=== PATIENT | male | born 1965 | race African-American/Black ===

== ENCOUNTER 2018-01-01 12:23 | Inpatient (IN) ==
[2018-01-07 12:25] VITALS: BP 96/77
== END 2018-01-07 15:20 | disposition home health service (06) | DRG 175 ==
LOC: N.ED 12:23 → SUATTDRO 16:57 → N.EDINP 16:57 → N.CC 17:39 → N.TELES 01-04 13:10
PROVIDERS: ADMIT Hospitalist; ATTEND Hospitalist

== ENCOUNTER 2018-06-11 12:59 | Inpatient (IN) ==
[2018-06-11] MEDS ORDERED: LABETALOL 20 MG/4 ML SYRINGE IV STA (13:16)
[2018-06-11] MEDS ORDERED: ALBUTEROL/IPRATROPIUM 3 ML NEB RESP TX STA (13:16)
[2018-06-11] MEDS ORDERED: methylPREDNISolone SOD SUC 125 MG/2 ML VIAL IV STA (13:16)
[2018-06-11] MEDS ORDERED: NITROGLYCERIN 2% OINT 1 INCH/GM PACK TOP STA (13:16)
[2018-06-11] MEDS ORDERED: ASPIRIN 325 MG TABLET PO STA (13:16)
[2018-06-11] MEDS ORDERED: MORPHINE 4 MG/1 ML VIAL IV STA (13:16)
[2018-06-11] MEDS ORDERED: ONDANSETRON 4 MG/2 ML VIAL IV STA (13:16)
[2018-06-11] MEDS ORDERED: FUROSEMIDE 100 MG/10 ML VIAL IV STA (13:16)
[2018-06-11 13:52] LABS: Basophils % 0.6 % (0.0-0.8); Eosinophils % 0.2 % (0.00-10.9); Hematocrit 42.4 VOL% (42.0-52.0); Hemoglobin 13.9 GM/DL (14.0-18.0); Immature Granulocytes % 0.5 %; Immature Granulocytes Absolute 0.03 #; Lymphocytes # 1.6 10*3/uL (1.4-4.0); Lymphocytes % 25.5 % (21.2-54.2); Mean Corpuscular HGB Conc 32.8 GM/DL (32-36); Mean Corpuscular Hemoglobin 28 PG (27-34); Mean Corpuscular Volume 85.5 FL (87-102); Mean Platelet Volume 10.9 FL (9.6-12.0); Monocytes # 0.7 10*3/uL (0.11-0.8); Monocytes % 10.7 % (1.7-12.7); NRBC # 0.03 10*3/uL; Neutrophils % 62.5 % (38.7-73.9); Platelet Count 186 T/CUMM (130-400); Red Blood Count 4.96 MC/CUMM (3.8-5.5); Red Cell Distribution Width 18.4 % (9.3-17.3); White Blood Count 6.4 T/CUMM (4-12)
[2018-06-11 14:09] LABS: Albumin 2.6 G/DL (3.4-5.0); Bilirubin,Total 5.3 MG/DL (0.2-1.0); Calcium 8.5 MG/DL (8.5-10.1); INR 1.7; Osmolality,Calculated 275.8 MOS/KG (273-304); PT Patient Result 18.3 SECS; Potassium 3.2 MMOL/L (3.5-5.1); Total Protein 7.3 G/DL (6.4-8.3)
[2018-06-11] MEDS ORDERED: MAGNESIUM SULF RIDER 2 GM in PREMIX 1 EACH IV STA (14:14)
[2018-06-11] MEDS ORDERED: POTASSIUM CHLORIDE 20 MEQ TABLET PO STA (14:14)
[2018-06-11] MEDS ORDERED: MAGNESIUM SULF RIDER 2 GM in PREMIX 1 EACH IV PRN (16:55)
[2018-06-11] MEDS ORDERED: MAGNESIUM SULF RIDER 4 GM in PREMIX 1 EACH IV PRN (16:55)
[2018-06-11] MEDS ORDERED: FUROSEMIDE 20 MG/2 ML VIAL IV ONE (17:00)
[2018-06-11] MEDS: POTASSIUM CHLORIDE 20 MEQ TABLET PO PRN (20:35)
[2018-06-11] MEDS: ENOXAPARIN 40 MG/0.4 ML SYRINGE SUBCUT SCH (20:35)
[2018-06-11] MEDS ORDERED: INFLUENZA VIRUS VACCINE 0.5 ML SYRINGE IM ONE (21:00)
[2018-06-12] MEDS: MORPHINE 4 MG/1 ML VIAL IV PRN (00:26)
[2018-06-12] MEDS: POTASSIUM CHLORIDE 20 MEQ TABLET PO PRN (04:00)
[2018-06-12 05:08] LABS: Basophils % 0.2 % (0.0-0.8); Hematocrit 42.4 VOL% (42.0-52.0); Hemoglobin 13.8 GM/DL (14.0-18.0); Immature Granulocytes % 0.4 %; Immature Granulocytes Absolute 0.02 #; Lymphocytes # 1.5 10*3/uL (1.4-4.0); Lymphocytes % 27.4 % (21.2-54.2); Mean Corpuscular HGB Conc 32.5 GM/DL (32-36); Mean Corpuscular Hemoglobin 28 PG (27-34); Mean Corpuscular Volume 85.7 FL (87-102); Monocytes # 0.2 10*3/uL (0.11-0.8); Monocytes % 2.7 % (1.7-12.7); Neutrophils # 3.9 10*3/uL (1.4-7.4); Neutrophils % 69.3 % (38.7-73.9); Platelet Count 177 T/CUMM (130-400); Red Blood Count 4.95 MC/CUMM (3.8-5.5); Red Cell Distribution Width 18.9 % (9.3-17.3); White Blood Count 5.6 T/CUMM (4-12)
[2018-06-12 05:52] LABS: Calcium 8.8 MG/DL (8.5-10.1); Potassium 3.7 MMOL/L (3.5-5.1); Risk Ratio 2.52; Thyroid Stimulating Hormone 1.66 uIU/ml (0.358-3.74); VLDL CHOLESTEROL 15.2 MG/DL
[2018-06-12] MEDS: FUROSEMIDE 100 MG/10 ML VIAL IV SCH ×2 (08:34→17:18)
[2018-06-12] MEDS: PANTOPRAZOLE 40 MG TABLET PO SCH (09:46)
[2018-06-12] MEDS: LACTULOSE 20 GM/30 ML UDCUP PO PRN (17:25)
[2018-06-12] MEDS: CARVEDILOL 6.25 MG TABLET PO SCH (21:05)
[2018-06-12] MEDS: CAPTOPRIL 6.25 MG TABLET PO SCH (21:05)
[2018-06-12] MEDS: ATORVASTATIN 20 MG TABLET PO SCH (21:06)
[2018-06-12] MEDS: APIXABAN 5 MG TABLET PO SCH (21:06)
[2018-06-12] MEDS: ENOXAPARIN 40 MG/0.4 ML SYRINGE SUBCUT SCH (21:06)
[2018-06-12] MEDS: MAGNESIUM OXIDE 400 MG TABLET PO SCH (21:08)
[2018-06-13 04:49] LABS: Hematocrit 41.2 VOL% (42.0-52.0); Hemoglobin 13.3 GM/DL (14.0-18.0); Immature Granulocytes % 0.4 %; Immature Granulocytes Absolute 0.03 #; Lymphocytes # 1.1 10*3/uL (1.4-4.0); Lymphocytes % 13.5 % (21.2-54.2); Mean Corpuscular HGB Conc 32.3 GM/DL (32-36); Mean Corpuscular Hemoglobin 27 PG (27-34); Mean Corpuscular Volume 84.8 FL (87-102); Mean Platelet Volume 10.7 FL (9.6-12.0); Monocytes # 0.7 10*3/uL (0.11-0.8); Monocytes % 8.2 % (1.7-12.7); NRBC # 0.03 10*3/uL; Neutrophils # 6.1 10*3/uL (1.4-7.4); Neutrophils % 77.9 % (38.7-73.9); Platelet Count 182 T/CUMM (130-400); Red Blood Count 4.86 MC/CUMM (3.8-5.5); Red Cell Distribution Width 18.5 % (9.3-17.3); White Blood Count 7.9 T/CUMM (4-12)
[2018-06-13 05:04] LABS: Calcium 8.7 MG/DL (8.5-10.1); Osmolality,Calculated 274.2 MOS/KG (273-304)
[2018-06-13] MEDS: FUROSEMIDE 100 MG/10 ML VIAL IV SCH ×2 (08:43→15:48)
[2018-06-13] MEDS: CAPTOPRIL 6.25 MG TABLET PO SCH (09:27)
[2018-06-13] MEDS: CARVEDILOL 6.25 MG TABLET PO SCH (09:27)
[2018-06-13] MEDS: DOCUSATE SODIUM 100 MG CAPSULE PO PRN (09:28)
[2018-06-13] MEDS: CLOPIDOGREL 75 MG TABLET PO SCH (09:29)
[2018-06-13] MEDS: APIXABAN 5 MG TABLET PO SCH ×2 (09:29→21:59)
[2018-06-13] MEDS: POTASSIUM CHLORIDE 10 MEQ TABLET PO SCH (09:29)
[2018-06-13] MEDS: MAGNESIUM OXIDE 400 MG TABLET PO SCH ×2 (09:29→21:59)
[2018-06-13] MEDS: PANTOPRAZOLE 40 MG TABLET PO SCH (09:29)
[2018-06-13] MEDS: METOPROLOL SUCCINATE XL 25 MG TABLET PO SCH (11:07)
[2018-06-13] MEDS: ATORVASTATIN 20 MG TABLET PO SCH (21:59)
[2018-06-13] MEDS: ENOXAPARIN 40 MG/0.4 ML SYRINGE SUBCUT SCH (22:00)
[2018-06-14 05:27] LABS: Basophils % 0.1 % (0.0-0.8); Hematocrit 39.9 VOL% (42.0-52.0); Hemoglobin 13.4 GM/DL (14.0-18.0); Immature Granulocytes % 0.8 %; Immature Granulocytes Absolute 0.07 #; Lymphocytes # 2.2 10*3/uL (1.4-4.0); Lymphocytes % 24.6 % (21.2-54.2); Mean Corpuscular HGB Conc 33.6 GM/DL (32-36); Mean Corpuscular Hemoglobin 28 PG (27-34); Mean Corpuscular Volume 83.3 FL (87-102); Mean Platelet Volume 10.9 FL (9.6-12.0); Monocytes % 11.6 % (1.7-12.7); NRBC # 0.09 10*3/uL; Neutrophils # 5.7 10*3/uL (1.4-7.4); Neutrophils % 62.9 % (38.7-73.9); Platelet Count 182 T/CUMM (130-400); Red Blood Count 4.79 MC/CUMM (3.8-5.5); Red Cell Distribution Width 18.5 % (9.3-17.3)
[2018-06-14 06:05] LABS: Osmolality,Calculated 272.4 MOS/KG (273-304); Potassium 4.5 MMOL/L (3.5-5.1)
[2018-06-14] MEDS: PANTOPRAZOLE 40 MG TABLET PO SCH (08:22)
[2018-06-14] MEDS: POTASSIUM CHLORIDE 10 MEQ TABLET PO SCH (08:22)
[2018-06-14] MEDS: APIXABAN 5 MG TABLET PO SCH ×2 (08:22→20:59)
[2018-06-14] MEDS: MAGNESIUM OXIDE 400 MG TABLET PO SCH ×2 (08:22→20:58)
[2018-06-14] MEDS: METOPROLOL SUCCINATE XL 25 MG TABLET PO SCH (08:22)
[2018-06-14] MEDS: CLOPIDOGREL 75 MG TABLET PO SCH (08:23)
[2018-06-14] MEDS: FUROSEMIDE 100 MG/10 ML VIAL IV SCH ×2 (08:23→16:52)
[2018-06-14] MEDS: ENOXAPARIN 40 MG/0.4 ML SYRINGE SUBCUT SCH (20:59)
[2018-06-14] MEDS: ATORVASTATIN 20 MG TABLET PO SCH (20:59)
[2018-06-14] MEDS: LISINOPRIL 2.5 MG TABLET PO SCH (20:59)
[2018-06-15 05:38] LABS: Basophils % 0.1 % (0.0-0.8); Eosinophils % 0.2 % (0.00-10.9); Hemoglobin 12.8 GM/DL (14.0-18.0); Immature Granulocytes % 0.7 %; Immature Granulocytes Absolute 0.06 #; Lymphocytes # 1.8 10*3/uL (1.4-4.0); Lymphocytes % 19.6 % (21.2-54.2); Mean Corpuscular HGB Conc 33.7 GM/DL (32-36); Mean Corpuscular Hemoglobin 28 PG (27-34); Mean Corpuscular Volume 83.2 FL (87-102); Mean Platelet Volume 11.1 FL (9.6-12.0); Monocytes # 0.9 10*3/uL (0.11-0.8); Monocytes % 10.3 % (1.7-12.7); NRBC # 0.12 10*3/uL; Neutrophils # 6.3 10*3/uL (1.4-7.4); Neutrophils % 69.1 % (38.7-73.9); Platelet Count 179 T/CUMM (130-400); Red Blood Count 4.57 MC/CUMM (3.8-5.5); Red Cell Distribution Width 18.6 % (9.3-17.3); White Blood Count 9.1 T/CUMM (4-12)
[2018-06-15 06:00] LABS: Calcium 8.5 MG/DL (8.5-10.1); Potassium 3.6 MMOL/L (3.5-5.1)
[2018-06-15] MEDS: MAGNESIUM OXIDE 400 MG TABLET PO SCH ×2 (10:25→21:10)
[2018-06-15] MEDS: APIXABAN 5 MG TABLET PO SCH ×2 (10:25→21:09)
[2018-06-15] MEDS: METOPROLOL SUCCINATE XL 25 MG TABLET PO SCH ×2 (10:25→12:33)
[2018-06-15] MEDS: CLOPIDOGREL 75 MG TABLET PO SCH (10:25)
[2018-06-15] MEDS: PANTOPRAZOLE 40 MG TABLET PO SCH (10:26)
[2018-06-15] MEDS: POTASSIUM CHLORIDE 10 MEQ TABLET PO SCH (10:26)
[2018-06-15] MEDS: DOCUSATE SODIUM 100 MG CAPSULE PO PRN (10:26)
[2018-06-15] MEDS: LISINOPRIL 2.5 MG TABLET PO SCH ×2 (10:26→21:10)
[2018-06-15] MEDS: FUROSEMIDE 100 MG/10 ML VIAL IV SCH ×2 (12:28→18:28)
[2018-06-15] MEDS: ATORVASTATIN 20 MG TABLET PO SCH (21:09)
[2018-06-15] MEDS: metOLazone 5 MG TABLET PO SCH (21:10)
[2018-06-16 06:27] LABS: Basophils % 0.1 % (0.0-0.8); Eosinophils # 0.1 10*3/uL (0.0-0.87); Eosinophils % 1.4 % (0.00-10.9); Hematocrit 40.5 VOL% (42.0-52.0); Hemoglobin 13.5 GM/DL (14.0-18.0); Immature Granulocytes % 0.5 %; Immature Granulocytes Absolute 0.04 #; Lymphocytes # 1.6 10*3/uL (1.4-4.0); Lymphocytes % 22.4 % (21.2-54.2); Mean Corpuscular HGB Conc 33.3 GM/DL (32-36); Mean Corpuscular Hemoglobin 28 PG (27-34); Mean Corpuscular Volume 83.7 FL (87-102); Mean Platelet Volume 11.2 FL (9.6-12.0); Monocytes # 0.8 10*3/uL (0.11-0.8); Monocytes % 11.3 % (1.7-12.7); NRBC # 0.06 10*3/uL; Neutrophils # 4.7 10*3/uL (1.4-7.4); Neutrophils % 64.3 % (38.7-73.9); Platelet Count 181 T/CUMM (130-400); Red Blood Count 4.84 MC/CUMM (3.8-5.5); Red Cell Distribution Width 18.6 % (9.3-17.3); White Blood Count 7.3 T/CUMM (4-12)
[2018-06-16 06:45] LABS: Calcium 8.8 MG/DL (8.5-10.1); Osmolality,Calculated 273.1 MOS/KG (273-304); Potassium 3.3 MMOL/L (3.5-5.1)
[2018-06-16] MEDS: FUROSEMIDE 100 MG/10 ML VIAL IV SCH ×2 (08:17→15:36)
[2018-06-16] MEDS: MAGNESIUM OXIDE 400 MG TABLET PO SCH ×2 (10:27→21:55)
[2018-06-16] MEDS: metOLazone 5 MG TABLET PO SCH ×2 (10:28→21:55)
[2018-06-16] MEDS: POTASSIUM CHLORIDE 10 MEQ TABLET PO SCH (10:28)
[2018-06-16] MEDS: METOPROLOL SUCCINATE XL 25 MG TABLET PO SCH (10:28)
[2018-06-16] MEDS: PANTOPRAZOLE 40 MG TABLET PO SCH (10:28)
[2018-06-16] MEDS: POTASSIUM CHLORIDE 20 MEQ TABLET PO PRN ×3 (10:28→14:25)
[2018-06-16] MEDS: LISINOPRIL 2.5 MG TABLET PO SCH ×2 (10:29→21:56)
[2018-06-16] MEDS: CLOPIDOGREL 75 MG TABLET PO SCH (10:29)
[2018-06-16] MEDS: APIXABAN 5 MG TABLET PO SCH ×2 (10:29→21:55)
[2018-06-16 14:08] LABS: Calcium 8.6 MG/DL (8.5-10.1); Osmolality,Calculated 273.2 MOS/KG (273-304); Potassium 3.1 MMOL/L (3.5-5.1)
[2018-06-16] MEDS: POTASSIUM CHLORIDE 20 MEQ TABLET PO SCH ×2 (15:51→21:54)
[2018-06-16] MEDS: ATORVASTATIN 20 MG TABLET PO SCH (21:55)
[2018-06-17] MEDS: POTASSIUM CHLORIDE 20 MEQ TABLET PO SCH ×2 (00:12→03:05)
[2018-06-17 04:15] LABS: Basophils % 0.2 % (0.0-0.8); Eosinophils # 0.1 10*3/uL (0.0-0.87); Hematocrit 42.8 VOL% (42.0-52.0); Hemoglobin 14.4 GM/DL (14.0-18.0); Immature Granulocytes % 0.5 %; Immature Granulocytes Absolute 0.03 #; Lymphocytes # 1.3 10*3/uL (1.4-4.0); Lymphocytes % 20.1 % (21.2-54.2); Mean Corpuscular HGB Conc 33.6 GM/DL (32-36); Mean Corpuscular Hemoglobin 28 PG (27-34); Mean Corpuscular Volume 83.6 FL (87-102); Mean Platelet Volume 10.8 FL (9.6-12.0); Monocytes # 0.7 10*3/uL (0.11-0.8); Monocytes % 10.2 % (1.7-12.7); NRBC # 0.03 10*3/uL; Neutrophils # 4.4 10*3/uL (1.4-7.4); Platelet Count 187 T/CUMM (130-400); Red Blood Count 5.12 MC/CUMM (3.8-5.5); White Blood Count 6.6 T/CUMM (4-12)
[2018-06-17 04:34] LABS: Calcium 8.5 MG/DL (8.5-10.1); Osmolality,Calculated 269.4 MOS/KG (273-304); Potassium 3.8 MMOL/L (3.5-5.1)
[2018-06-17] MEDS: LISINOPRIL 2.5 MG TABLET PO SCH ×2 (09:58→21:53)
[2018-06-17] MEDS: APIXABAN 5 MG TABLET PO SCH ×3 (10:00→21:53)
[2018-06-17] MEDS: metOLazone 5 MG TABLET PO SCH ×3 (10:00→21:53)
[2018-06-17] MEDS: PANTOPRAZOLE 40 MG TABLET PO SCH ×2 (10:00→10:20)
[2018-06-17] MEDS: CLOPIDOGREL 75 MG TABLET PO SCH ×2 (10:00→10:20)
[2018-06-17] MEDS: MAGNESIUM OXIDE 400 MG TABLET PO SCH ×3 (10:00→21:53)
[2018-06-17] MEDS: METOPROLOL SUCCINATE XL 25 MG TABLET PO SCH ×2 (10:00→10:20)
[2018-06-17] MEDS: FUROSEMIDE 100 MG/10 ML VIAL IV SCH ×2 (10:01→18:32)
[2018-06-17] MEDS: ATORVASTATIN 20 MG TABLET PO SCH (21:53)
[2018-06-18 05:21] LABS: Basophils % 0.3 % (0.0-0.8); Eosinophils # 0.1 10*3/uL (0.0-0.87); Eosinophils % 1.4 % (0.00-10.9); Hematocrit 42.9 VOL% (42.0-52.0); Hemoglobin 14.1 GM/DL (14.0-18.0); Immature Granulocytes % 0.5 %; Immature Granulocytes Absolute 0.03 #; Lymphocytes # 1.3 10*3/uL (1.4-4.0); Lymphocytes % 20.4 % (21.2-54.2); Mean Corpuscular HGB Conc 32.9 GM/DL (32-36); Mean Corpuscular Hemoglobin 28 PG (27-34); Mean Platelet Volume 10.9 FL (9.6-12.0); Monocytes # 0.8 10*3/uL (0.11-0.8); Monocytes % 12.7 % (1.7-12.7); NRBC # 0.02 10*3/uL; Neutrophils # 4.2 10*3/uL (1.4-7.4); Neutrophils % 64.7 % (38.7-73.9); Platelet Count 189 T/CUMM (130-400); Red Blood Count 5.11 MC/CUMM (3.8-5.5); Red Cell Distribution Width 19.1 % (9.3-17.3); White Blood Count 6.5 T/CUMM (4-12)
[2018-06-18 05:42] LABS: Calcium 8.6 MG/DL (8.5-10.1); Osmolality,Calculated 265.5 MOS/KG (273-304); Potassium 3.3 MMOL/L (3.5-5.1)
[2018-06-18] MEDS: APIXABAN 5 MG TABLET PO SCH ×2 (07:24→09:22)
[2018-06-18] MEDS: metOLazone 5 MG TABLET PO SCH ×2 (07:24→09:22)
[2018-06-18] MEDS: MAGNESIUM OXIDE 400 MG TABLET PO SCH ×2 (07:24→09:22)
[2018-06-18] MEDS ORDERED: POTASSIUM CHLORIDE RIDER 10 MEQ in PREMIX 1 EACH IV PRN (08:12)
[2018-06-18] MEDS: FUROSEMIDE 100 MG/10 ML VIAL IV SCH ×2 (09:19→16:56)
[2018-06-18] MEDS: LISINOPRIL 2.5 MG TABLET PO SCH (09:22)
[2018-06-18] MEDS: PANTOPRAZOLE 40 MG TABLET PO SCH (09:22)
[2018-06-18] MEDS: METOPROLOL SUCCINATE XL 25 MG TABLET PO SCH (09:22)
[2018-06-18] MEDS: CLOPIDOGREL 75 MG TABLET PO SCH (09:22)
[2018-06-18] MEDS: LACTULOSE 20 GM/30 ML UDCUP PO PRN (12:56)
[2018-06-18] MEDS: MORPHINE 4 MG/1 ML VIAL IV PRN (12:56)
[2018-06-18] MEDS: guaiFENesin 200 MG/10 ML UDCUP PO PRN (12:57)
[2018-06-19] MEDS: LISINOPRIL 2.5 MG TABLET PO SCH ×3 (01:55→12:33)
[2018-06-19] MEDS: MAGNESIUM OXIDE 400 MG TABLET PO SCH ×3 (01:55→12:33)
[2018-06-19] MEDS: ATORVASTATIN 20 MG TABLET PO SCH (01:55)
[2018-06-19] MEDS: APIXABAN 5 MG TABLET PO SCH ×3 (01:55→12:29)
[2018-06-19 06:47] LABS: Basophils % 0.6 % (0.0-0.8); Eosinophils # 0.1 10*3/uL (0.0-0.87); Eosinophils % 1.6 % (0.00-10.9); Hemoglobin 14.2 GM/DL (14.0-18.0); Immature Granulocytes % 0.4 %; Immature Granulocytes Absolute 0.03 #; Lymphocytes # 1.3 10*3/uL (1.4-4.0); Lymphocytes % 19.1 % (21.2-54.2); Mean Corpuscular HGB Conc 33.8 GM/DL (32-36); Mean Corpuscular Hemoglobin 28 PG (27-34); Mean Corpuscular Volume 83.5 FL (87-102); Monocytes # 0.9 10*3/uL (0.11-0.8); Monocytes % 13.5 % (1.7-12.7); Neutrophils # 4.4 10*3/uL (1.4-7.4); Neutrophils % 64.8 % (38.7-73.9); Platelet Count 209 T/CUMM (130-400); Red Blood Count 5.03 MC/CUMM (3.8-5.5); Red Cell Distribution Width 18.6 % (9.3-17.3); White Blood Count 6.8 T/CUMM (4-12)
[2018-06-19 07:49] LABS: Albumin 2.3 G/DL (3.4-5.0); Bilirubin,Total 4.5 MG/DL (0.2-1.0); Calcium 8.4 MG/DL (8.5-10.1); Osmolality,Calculated 266.7 MOS/KG (273-304); Potassium 3.1 MMOL/L (3.5-5.1); Total Protein 6.9 G/DL (6.4-8.3)
[2018-06-19] MEDS: FUROSEMIDE 100 MG/10 ML VIAL IV SCH (10:19)
[2018-06-19] MEDS: METOPROLOL SUCCINATE XL 25 MG TABLET PO SCH ×2 (10:23→12:29)
[2018-06-19] MEDS: CLOPIDOGREL 75 MG TABLET PO SCH ×2 (10:23→12:32)
[2018-06-19] MEDS: PANTOPRAZOLE 40 MG TABLET PO SCH (10:23)
[2018-06-19] MEDS: POTASSIUM CHLORIDE 20 MEQ TABLET PO PRN ×2 (12:27→14:29)
[2018-06-19] MEDS: guaiFENesin 200 MG/10 ML UDCUP PO PRN (12:29)
[2018-06-20] MEDS: ATORVASTATIN 20 MG TABLET PO SCH ×2 (02:44→22:08)
[2018-06-20] MEDS: MAGNESIUM OXIDE 400 MG TABLET PO SCH ×3 (02:44→22:08)
[2018-06-20] MEDS: APIXABAN 5 MG TABLET PO SCH ×3 (02:44→22:09)
[2018-06-20] MEDS: LISINOPRIL 2.5 MG TABLET PO SCH ×3 (02:45→22:09)
[2018-06-20 04:12] LABS: Basophils # 0.1 10*3/uL (0.0-0.2); Basophils % 0.6 % (0.0-0.8); Eosinophils # 0.1 10*3/uL (0.0-0.87); Eosinophils % 1.3 % (0.00-10.9); Hematocrit 41.4 VOL% (42.0-52.0); Hemoglobin 13.9 GM/DL (14.0-18.0); Immature Granulocytes % 0.4 %; Immature Granulocytes Absolute 0.04 #; Lymphocytes # 1.8 10*3/uL (1.4-4.0); Lymphocytes % 20.1 % (21.2-54.2); Mean Corpuscular HGB Conc 33.6 GM/DL (32-36); Mean Corpuscular Hemoglobin 28 PG (27-34); Mean Platelet Volume 10.4 FL (9.6-12.0); Monocytes # 1.3 10*3/uL (0.11-0.8); Neutrophils # 5.8 10*3/uL (1.4-7.4); Neutrophils % 63.6 % (38.7-73.9); Platelet Count 200 T/CUMM (130-400); Red Blood Count 4.93 MC/CUMM (3.8-5.5); Red Cell Distribution Width 18.6 % (9.3-17.3); White Blood Count 9.1 T/CUMM (4-12)
[2018-06-20 08:16] LABS: Calcium 8.7 MG/DL (8.5-10.1); Osmolality,Calculated 265.5 MOS/KG (273-304); Potassium 3.2 MMOL/L (3.5-5.1)
[2018-06-20] MEDS: METOPROLOL SUCCINATE XL 25 MG TABLET PO SCH (09:12)
[2018-06-20] MEDS: PANTOPRAZOLE 40 MG TABLET PO SCH (09:14)
[2018-06-20] MEDS: CLOPIDOGREL 75 MG TABLET PO SCH (09:14)
[2018-06-20] MEDS ORDERED: MAGNESIUM SULF RIDER 4 GM in PREMIX 1 EACH IV PRN (11:27)
[2018-06-20] MEDS ORDERED: MAGNESIUM SULF RIDER 2 GM in PREMIX 1 EACH IV PRN (11:27)
[2018-06-20] MEDS ORDERED: POTASSIUM CHLORIDE 20 MEQ TABLET PO ONE (11:27)
[2018-06-20] MEDS: POTASSIUM CHLORIDE 20 MEQ TABLET PO PRN (22:08)
[2018-06-21 04:34] LABS: Basophils # 0.1 10*3/uL (0.0-0.2); Basophils % 0.6 % (0.0-0.8); Eosinophils # 0.1 10*3/uL (0.0-0.87); Eosinophils % 1.1 % (0.00-10.9); Hematocrit 40.3 VOL% (42.0-52.0); Hemoglobin 13.2 GM/DL (14.0-18.0); Immature Granulocytes % 0.6 %; Immature Granulocytes Absolute 0.05 #; Lymphocytes # 1.9 10*3/uL (1.4-4.0); Lymphocytes % 23.8 % (21.2-54.2); Mean Corpuscular HGB Conc 32.8 GM/DL (32-36); Mean Corpuscular Hemoglobin 28 PG (27-34); Mean Corpuscular Volume 85.2 FL (87-102); Mean Platelet Volume 10.5 FL (9.6-12.0); Monocytes # 1.1 10*3/uL (0.11-0.8); Monocytes % 13.3 % (1.7-12.7); Neutrophils # 4.9 10*3/uL (1.4-7.4); Neutrophils % 60.6 % (38.7-73.9); Platelet Count 193 T/CUMM (130-400); Red Blood Count 4.73 MC/CUMM (3.8-5.5); Red Cell Distribution Width 18.4 % (9.3-17.3)
[2018-06-21 04:38] LABS: Osmolality,Calculated 270.4 MOS/KG (273-304); Potassium 3.3 MMOL/L (3.5-5.1)
[2018-06-21] MEDS: CLOPIDOGREL 75 MG TABLET PO SCH (13:03)
[2018-06-21] MEDS: PANTOPRAZOLE 40 MG TABLET PO SCH (13:03)
[2018-06-21] MEDS: LISINOPRIL 2.5 MG TABLET PO SCH ×2 (13:03→20:52)
[2018-06-21] MEDS: MAGNESIUM OXIDE 400 MG TABLET PO SCH ×2 (13:03→20:52)
[2018-06-21] MEDS: METOPROLOL SUCCINATE XL 25 MG TABLET PO SCH (13:04)
[2018-06-21] MEDS: APIXABAN 5 MG TABLET PO SCH ×2 (13:04→20:52)
[2018-06-21] MEDS: POTASSIUM CHLORIDE 20 MEQ TABLET PO PRN (13:04)
[2018-06-21] MEDS ORDERED: POTASSIUM CHLORIDE 20 MEQ TABLET PO ONE (17:11)
[2018-06-21] MEDS: ATORVASTATIN 20 MG TABLET PO SCH (20:52)
[2018-06-22 04:42] LABS: Calcium 8.8 MG/DL (8.5-10.1); Osmolality,Calculated 270.2 MOS/KG (273-304); Potassium 4.4 MMOL/L (3.5-5.1)
[2018-06-22] MEDS: METOPROLOL SUCCINATE XL 25 MG TABLET PO SCH (09:07)
[2018-06-22] MEDS: LISINOPRIL 2.5 MG TABLET PO SCH ×2 (09:07→20:59)
[2018-06-22] MEDS: PANTOPRAZOLE 40 MG TABLET PO SCH (09:07)
[2018-06-22] MEDS: APIXABAN 5 MG TABLET PO SCH ×2 (09:07→20:59)
[2018-06-22] MEDS: CLOPIDOGREL 75 MG TABLET PO SCH (09:07)
[2018-06-22] MEDS: MAGNESIUM OXIDE 400 MG TABLET PO SCH ×2 (09:08→20:59)
[2018-06-22] MEDS ORDERED: FUROSEMIDE 20 MG/2 ML VIAL IV ONE (10:24)
[2018-06-22] MEDS ORDERED: TUBERCULIN SKIN TEST 0.1 ML SYRINGE INTRADERM ONE (12:25)
[2018-06-22] MEDS: ATORVASTATIN 20 MG TABLET PO SCH (21:00)
[2018-06-23] MEDS: APIXABAN 5 MG TABLET PO SCH ×2 (08:16→21:14)
[2018-06-23] MEDS: METOPROLOL SUCCINATE XL 25 MG TABLET PO SCH (08:17)
[2018-06-23] MEDS: LISINOPRIL 2.5 MG TABLET PO SCH ×2 (08:17→21:15)
[2018-06-23] MEDS: CLOPIDOGREL 75 MG TABLET PO SCH (08:17)
[2018-06-23] MEDS: PANTOPRAZOLE 40 MG TABLET PO SCH (08:17)
[2018-06-23] MEDS: MAGNESIUM OXIDE 400 MG TABLET PO SCH ×2 (08:17→21:14)
[2018-06-23] MEDS: ATORVASTATIN 20 MG TABLET PO SCH (21:14)
[2018-06-24] MEDS ORDERED: diphenhydrAMINE CAP 25 MG CAPSULE PO ONE (00:01)
[2018-06-24] MEDS: MAGNESIUM OXIDE 400 MG TABLET PO SCH (08:42)
[2018-06-24] MEDS: LISINOPRIL 2.5 MG TABLET PO SCH (08:42)
[2018-06-24] MEDS: CLOPIDOGREL 75 MG TABLET PO SCH (08:43)
[2018-06-24] MEDS: PANTOPRAZOLE 40 MG TABLET PO SCH (08:43)
[2018-06-24] MEDS: APIXABAN 5 MG TABLET PO SCH (08:43)
[2018-06-24] MEDS: METOPROLOL SUCCINATE XL 25 MG TABLET PO SCH (08:43)
[2018-06-24 12:57] VITALS: BP 95/65
== END 2018-06-24 14:32 | DRG 292 ==
LOC: N.ED 12:59 → SUATTDRO 16:06 → N.EDINP 16:06 → N.TELES 18:32
PROVIDERS: ADMIT Internal Medicine; ATTEND Internal Medicine

== ENCOUNTER 2018-07-08 07:15 | Inpatient (IN) ==
[2018-07-08 09:25] LABS: Basophils % 0.5 % (0.0-0.8); Eosinophils % 0.3 % (0.00-10.9); Hematocrit 41.5 VOL% (42.0-52.0); Immature Granulocytes % 0.5 %; Immature Granulocytes Absolute 0.03 #; Lymphocytes # 1.8 10*3/uL (1.4-4.0); Lymphocytes % 31.4 % (21.2-54.2); Mean Corpuscular HGB Conc 31.3 GM/DL (32-36); Mean Corpuscular Hemoglobin 28 PG (27-34); Mean Corpuscular Volume 89.2 FL (87-102); Mean Platelet Volume 10.1 FL (9.6-12.0); Monocytes # 0.7 10*3/uL (0.11-0.8); Monocytes % 11.4 % (1.7-12.7); NRBC # 0.03 10*3/uL; Neutrophils # 3.3 10*3/uL (1.4-7.4); Neutrophils % 55.9 % (38.7-73.9); Platelet Count 260 T/CUMM (130-400); Red Blood Count 4.65 MC/CUMM (3.8-5.5); Red Cell Distribution Width 19.3 % (9.3-17.3); White Blood Count 5.9 T/CUMM (4-12)
[2018-07-08 09:52] LABS: Calcium 9.1 MG/DL (8.5-10.1); Osmolality,Calculated 273.8 MOS/KG (273-304)
[2018-07-08] MEDS ORDERED: FUROSEMIDE 40 MG/4 ML VIAL IV STA (11:56)
[2018-07-08] MEDS ORDERED: ACETAMINOPHEN 325 MG TABLET PO PRN (13:10)
[2018-07-08] MEDS ORDERED: ONDANSETRON 4 MG/2 ML VIAL IV PRN (13:10)
[2018-07-09 06:45] LABS: Basophils % 0.7 % (0.0-0.8); Eosinophils % 0.7 % (0.00-10.9); Hematocrit 41.4 VOL% (42.0-52.0); Immature Granulocytes % 0.4 %; Immature Granulocytes Absolute 0.02 #; Lymphocytes # 2.4 10*3/uL (1.4-4.0); Lymphocytes % 43.1 % (21.2-54.2); Mean Corpuscular HGB Conc 31.4 GM/DL (32-36); Mean Corpuscular Hemoglobin 28 PG (27-34); Mean Corpuscular Volume 88.7 FL (87-102); Mean Platelet Volume 10.1 FL (9.6-12.0); Monocytes # 0.7 10*3/uL (0.11-0.8); Monocytes % 12.2 % (1.7-12.7); Neutrophils # 2.4 10*3/uL (1.4-7.4); Neutrophils % 42.9 % (38.7-73.9); Platelet Count 251 T/CUMM (130-400); Red Blood Count 4.67 MC/CUMM (3.8-5.5); Red Cell Distribution Width 19.5 % (9.3-17.3); White Blood Count 5.5 T/CUMM (4-12)
[2018-07-09 07:08] LABS: Calcium 8.9 MG/DL (8.5-10.1); Osmolality,Calculated 274.7 MOS/KG (273-304); Potassium 4.1 MMOL/L (3.5-5.1)
[2018-07-09] MEDS: FUROSEMIDE 40 MG/4 ML VIAL IV SCH (10:20)
[2018-07-09] MEDS: PANTOPRAZOLE 40 MG TABLET PO SCH (10:20)
[2018-07-10 06:33] LABS: Basophils % 0.6 % (0.0-0.8); Eosinophils % 0.6 % (0.00-10.9); Hematocrit 41.7 VOL% (42.0-52.0); Hemoglobin 13.3 GM/DL (14.0-18.0); Immature Granulocytes % 0.4 %; Immature Granulocytes Absolute 0.02 #; Lymphocytes # 1.6 10*3/uL (1.4-4.0); Lymphocytes % 32.2 % (21.2-54.2); Mean Corpuscular HGB Conc 31.9 GM/DL (32-36); Mean Corpuscular Hemoglobin 28 PG (27-34); Mean Corpuscular Volume 87.6 FL (87-102); Mean Platelet Volume 10.3 FL (9.6-12.0); Monocytes # 0.6 10*3/uL (0.11-0.8); Neutrophils # 2.7 10*3/uL (1.4-7.4); Neutrophils % 54.2 % (38.7-73.9); Platelet Count 248 T/CUMM (130-400); Red Blood Count 4.76 MC/CUMM (3.8-5.5); Red Cell Distribution Width 19.6 % (9.3-17.3)
[2018-07-10 06:44] LABS: Calcium 8.7 MG/DL (8.5-10.1); Osmolality,Calculated 274.8 MOS/KG (273-304)
[2018-07-10] MEDS: FUROSEMIDE 40 MG/4 ML VIAL IV SCH ×2 (07:38→08:24)
[2018-07-10] MEDS: PANTOPRAZOLE 40 MG TABLET PO SCH ×2 (07:39→08:24)
[2018-07-10 10:07] VITALS: BP 125/80
== END 2018-07-10 14:42 | disposition home or self-care (01) | DRG 292 ==
LOC: EDBD → EDUNIT# → N.ED 07:15 → N.EDINP 13:09 → N.5E 15:27
PROVIDERS: ADMIT Internal Medicine; ATTEND Internal Medicine

== ENCOUNTER 2018-07-22 10:50 | Inpatient (IN) ==
[2018-07-22] MEDS ORDERED: ONDANSETRON 4 MG/2 ML VIAL IV STA ×2 (11:29→14:21)
[2018-07-22] MEDS ORDERED: HYDROmorphone 2 MG/1 ML VIAL IV STA ×2 (11:29→14:20)
[2018-07-22] MEDS ORDERED: PANTOPRAZOLE 40 MG VIAL IV STA (11:29)
[2018-07-22] MEDS ORDERED: SODIUM CHLORIDE 0.9% 1,000 ML IV STA (11:29)
[2018-07-22 12:21] LABS: Basophils % 0.4 % (0.0-0.8); Eosinophils % 0.9 % (0.00-10.9); Hematocrit 40.8 VOL% (42.0-52.0); Hemoglobin 12.8 GM/DL (14.0-18.0); Immature Granulocytes % 0.4 %; Immature Granulocytes Absolute 0.02 #; Lymphocytes # 1.7 10*3/uL (1.4-4.0); Lymphocytes % 36.3 % (21.2-54.2); Mean Corpuscular HGB Conc 31.4 GM/DL (32-36); Mean Corpuscular Hemoglobin 28 PG (27-34); Mean Corpuscular Volume 89.1 FL (87-102); Mean Platelet Volume 10.1 FL (9.6-12.0); Monocytes # 0.5 10*3/uL (0.11-0.8); Monocytes % 11.7 % (1.7-12.7); NRBC # 0.03 10*3/uL; Neutrophils # 2.3 10*3/uL (1.4-7.4); Neutrophils % 50.3 % (38.7-73.9); Platelet Count 145 T/CUMM (130-400); Red Blood Count 4.58 MC/CUMM (3.8-5.5); Red Cell Distribution Width 18.2 % (9.3-17.3); White Blood Count 4.6 T/CUMM (4-12)
[2018-07-22 12:48] LABS: Alanine Aminotransferase 19 U/L (16-61); Albumin 2.7 G/DL (3.4-5.0); Alkaline Phosphatase 120 U/L (45-117); Amylase 65 U/L (25-115); Aspartate Amino Transferase 20 U/L (0-37); Blood Urea Nitrogen 18 MG/DL (7-18); Glucose 99 MG/DL (74-106); Lipase < 50.0 U/L (73-393); Osmolality,Calculated 278.5 MOS/KG (273-304); Potassium 3.4 MMOL/L (3.5-5.1); Sodium 139 MMOL/L (136-145); Total Protein 6.2 G/DL (6.4-8.3)
[2018-07-22] MEDS ORDERED: PIPERACILLIN/TAZOBACTAM 3,375 MG in SODIUM CHLORIDE 0.9% 100 ML IV STA (14:18)
[2018-07-22] MEDS ORDERED: ONDANSETRON 4 MG/2 ML VIAL IV PRN (15:41)
[2018-07-22] MEDS ORDERED: DOCUSATE SODIUM 100 MG CAPSULE PO PRN (15:44)
[2018-07-22] MEDS: HYDROmorphone 2 MG/1 ML VIAL IV PRN (17:23)
[2018-07-22] MEDS: FUROSEMIDE 20 MG TABLET PO SCH (17:24)
[2018-07-22 17:54] LABS: Apearance,Urine CLEAR (Clear); Bacteria,Urine Occasional /HPF (Few); Bilirubin,Urine Negative (Negative); Blood, Urine Small mg/dL (Negative); Glucose,Urine (UA) Negative (Negative); Ketones,Urine Negative (Negative); Mucus,Urine Occasional /LPF (Occasional); Nitrite,Urine Negative (Negative); Protein,Urine 100 MG/DL; RBC,Urine 13 /HPF (0-4); Urine Specific Gravity > 1.060 (1.001-1.035)
[2018-07-22 17:55] LABS: Urine Color Yellow (Yellow)
[2018-07-22] MEDS: POTASSIUM CHLORIDE 20 MEQ TABLET PO SCH (20:58)
[2018-07-22] MEDS: ATORVASTATIN 20 MG TABLET PO SCH (20:58)
[2018-07-22] MEDS: CAPTOPRIL 6.25 MG TABLET PO SCH (20:58)
[2018-07-22] MEDS: MAGNESIUM OXIDE 400 MG TABLET PO SCH (20:58)
[2018-07-22] MEDS ORDERED: APIXABAN 5 MG TABLET PO SCH (21:00)
[2018-07-23] MEDS: PIPERACILLIN/TAZOBACTAM 3,375 MG in SODIUM CHLORIDE 0.9% 100 ML IV SCH ×3 (02:40→17:44)
[2018-07-23] MEDS: HYDROmorphone 2 MG/1 ML VIAL IV PRN ×5 (05:35→17:45)
[2018-07-23 06:57] LABS: Basophils % 0.4 % (0.0-0.8); Eosinophils # 0.1 10*3/uL (0.0-0.87); Eosinophils % 1.7 % (0.00-10.9); Hematocrit 42.5 VOL% (42.0-52.0); Hemoglobin 13.2 GM/DL (14.0-18.0); Immature Granulocytes % 0.2 %; Immature Granulocytes Absolute 0.01 #; Lymphocytes # 1.4 10*3/uL (1.4-4.0); Lymphocytes % 25.9 % (21.2-54.2); Mean Corpuscular HGB Conc 31.1 GM/DL (32-36); Mean Corpuscular Hemoglobin 28 PG (27-34); Mean Corpuscular Volume 89.9 FL (87-102); Mean Platelet Volume 10.6 FL (9.6-12.0); Monocytes # 0.5 10*3/uL (0.11-0.8); Monocytes % 8.8 % (1.7-12.7); NRBC # 0.02 10*3/uL; Neutrophils # 3.4 10*3/uL (1.4-7.4); Platelet Count 168 T/CUMM (130-400); Red Blood Count 4.73 MC/CUMM (3.8-5.5); Red Cell Distribution Width 18.8 % (9.3-17.3); White Blood Count 5.5 T/CUMM (4-12)
[2018-07-23 07:27] LABS: Albumin 2.8 G/DL (3.4-5.0); Bilirubin,Total 3.6 MG/DL (0.2-1.0); Calcium 8.6 MG/DL (8.5-10.1); Osmolality,Calculated 278.5 MOS/KG (273-304); Potassium 3.7 MMOL/L (3.5-5.1); Total Protein 6.8 G/DL (6.4-8.3)
[2018-07-23] MEDS ORDERED: CLOPIDOGREL 75 MG TABLET PO SCH (09:00)
[2018-07-23] MEDS: CAPTOPRIL 6.25 MG TABLET PO SCH ×2 (09:27→21:03)
[2018-07-23] MEDS: METOPROLOL SUCCINATE XL 25 MG TABLET PO SCH (09:28)
[2018-07-23] MEDS: POTASSIUM CHLORIDE 20 MEQ TABLET PO SCH ×2 (09:28→21:03)
[2018-07-23] MEDS: PANTOPRAZOLE 40 MG TABLET PO SCH (09:28)
[2018-07-23] MEDS: FUROSEMIDE 20 MG TABLET PO SCH (09:28)
[2018-07-23] MEDS: LORATADINE 10 MG TABLET PO SCH (09:28)
[2018-07-23] MEDS: MAGNESIUM OXIDE 400 MG TABLET PO SCH ×2 (09:28→21:03)
[2018-07-23] MEDS ORDERED: FUROSEMIDE 20 MG TABLET PO SCH (10:52)
[2018-07-23] MEDS: ENOXAPARIN 100 MG/ML SYRINGE SUBCUT SCH (13:02)
[2018-07-23] MEDS: ATORVASTATIN 20 MG TABLET PO SCH (21:03)
[2018-07-24] MEDS: PIPERACILLIN/TAZOBACTAM 3,375 MG in SODIUM CHLORIDE 0.9% 100 ML IV SCH ×3 (02:17→18:17)
[2018-07-24 05:37] LABS: Basophils % 0.2 % (0.0-0.8); Eosinophils # 0.2 10*3/uL (0.0-0.87); Eosinophils % 3.3 % (0.00-10.9); Hematocrit 39.6 VOL% (42.0-52.0); Hemoglobin 12.3 GM/DL (14.0-18.0); Immature Granulocytes % 0.5 %; Immature Granulocytes Absolute 0.03 #; Lymphocytes # 0.7 10*3/uL (1.4-4.0); Lymphocytes % 11.4 % (21.2-54.2); Mean Corpuscular HGB Conc 31.1 GM/DL (32-36); Mean Corpuscular Hemoglobin 28 PG (27-34); Mean Platelet Volume 10.5 FL (9.6-12.0); Monocytes # 0.9 10*3/uL (0.11-0.8); Monocytes % 14.6 % (1.7-12.7); NRBC # 0.03 10*3/uL; Neutrophils # 4.1 10*3/uL (1.4-7.4); Platelet Count 159 T/CUMM (130-400); Red Blood Count 4.35 MC/CUMM (3.8-5.5); Red Cell Distribution Width 18.7 % (9.3-17.3); White Blood Count 5.8 T/CUMM (4-12)
[2018-07-24 05:52] LABS: Calcium 8.8 MG/DL (8.5-10.1); Osmolality,Calculated 274.8 MOS/KG (273-304); Potassium 4.8 MMOL/L (3.5-5.1)
[2018-07-24 06:55] LABS: Albumin 2.6 G/DL (3.4-5.0); Bilirubin,Total 3.9 MG/DL (0.2-1.0); Calcium 8.8 MG/DL (8.5-10.1); Osmolality,Calculated 273.8 MOS/KG (273-304); Potassium 4.9 MMOL/L (3.5-5.1); Total Protein 6.4 G/DL (6.4-8.3)
[2018-07-24] MEDS ORDERED: DEXTROSE 5% NACL 0.45% 1,000 ML IV SCH (08:00)
[2018-07-24] MEDS: MAGNESIUM OXIDE 400 MG TABLET PO SCH ×2 (10:17→21:18)
[2018-07-24] MEDS: METOPROLOL SUCCINATE XL 25 MG TABLET PO SCH (10:17)
[2018-07-24] MEDS: PANTOPRAZOLE 40 MG TABLET PO SCH (10:17)
[2018-07-24] MEDS: POTASSIUM CHLORIDE 20 MEQ TABLET PO SCH ×2 (10:17→21:18)
[2018-07-24] MEDS: HYDROmorphone 2 MG/1 ML VIAL IV PRN ×3 (10:18→16:24)
[2018-07-24] MEDS: LORATADINE 10 MG TABLET PO SCH (10:21)
[2018-07-24] MEDS: ENOXAPARIN 100 MG/ML SYRINGE SUBCUT SCH ×2 (10:22→21:23)
[2018-07-24] MEDS: ATORVASTATIN 20 MG TABLET PO SCH (21:24)
[2018-07-25] MEDS: PIPERACILLIN/TAZOBACTAM 3,375 MG in SODIUM CHLORIDE 0.9% 100 ML IV SCH ×2 (03:00→12:32)
[2018-07-25] MEDS: PANTOPRAZOLE 40 MG TABLET PO SCH (10:44)
[2018-07-25] MEDS: MAGNESIUM OXIDE 400 MG TABLET PO SCH (10:44)
[2018-07-25] MEDS: POTASSIUM CHLORIDE 20 MEQ TABLET PO SCH (10:44)
[2018-07-25] MEDS: METOPROLOL SUCCINATE XL 25 MG TABLET PO SCH (10:44)
[2018-07-25] MEDS: LORATADINE 10 MG TABLET PO SCH (10:44)
[2018-07-25] MEDS: ENOXAPARIN 100 MG/ML SYRINGE SUBCUT SCH (10:53)
[2018-07-25] MEDS ORDERED: diphenhydrAMINE 50 MG/1 ML VIAL IV PRN (11:23)
[2018-07-25] MEDS ORDERED: MORPHINE 4 MG/1 ML VIAL IV PRN (11:23)
[2018-07-25 11:30] VITALS: BP 102/80
== END 2018-07-25 16:25 | disposition home or self-care (01) | DRG 445 ==
LOC: EDUNIT# → EDBD → N.ED 10:50 → SUATTDRO 15:20 → N.EDINP 15:20 → N.2E 16:06
PROVIDERS: ADMIT Internal Medicine; ATTEND Internal Medicine Geriatric Medicine

== ENCOUNTER 2018-08-19 10:18 | Inpatient (IN) ==
[2018-08-19] MEDS ORDERED: FUROSEMIDE 100 MG/10 ML VIAL IV STA (10:44)
[2018-08-19 11:17] LABS: Basophils % 0.7 % (0.0-0.8); Eosinophils # 0.1 10*3/uL (0.0-0.87); Eosinophils % 0.9 % (0.00-10.9); Hematocrit 43.9 VOL% (42.0-52.0); Hemoglobin 14.1 GM/DL (14.0-18.0); Immature Granulocytes % 0.5 %; Immature Granulocytes Absolute 0.03 #; Lymphocytes # 1.5 10*3/uL (1.4-4.0); Lymphocytes % 26.6 % (21.2-54.2); Mean Corpuscular HGB Conc 32.1 GM/DL (32-36); Mean Corpuscular Hemoglobin 29 PG (27-34); Mean Corpuscular Volume 89.2 FL (87-102); Mean Platelet Volume 10.3 FL (9.6-12.0); Monocytes # 0.5 10*3/uL (0.11-0.8); Monocytes % 8.2 % (1.7-12.7); Neutrophils # 3.6 10*3/uL (1.4-7.4); Neutrophils % 63.1 % (38.7-73.9); Platelet Count 194 T/CUMM (130-400); Red Blood Count 4.92 MC/CUMM (3.8-5.5); Red Cell Distribution Width 18.2 % (9.3-17.3); White Blood Count 5.8 T/CUMM (4-12)
[2018-08-19 11:25] LABS: INR 1.4; PT Patient Result 15.2 SECS; Partial Thromboplastin Time 27.9 SECS (0-40)
[2018-08-19 11:44] LABS: Albumin 2.7 G/DL (3.4-5.0); Bilirubin,Total 3.6 MG/DL (0.2-1.0); Calcium 8.6 MG/DL (8.5-10.1); Osmolality,Calculated 282.7 MOS/KG (273-304); Potassium 3.9 MMOL/L (3.5-5.1); Total Protein 7.1 G/DL (6.4-8.3)
[2018-08-19] MEDS ORDERED: DOCUSATE SODIUM 100 MG CAPSULE PO PRN (13:01)
[2018-08-19] MEDS ORDERED: POTASSIUM CHLORIDE RIDER 10 MEQ in PREMIX 1 EACH IV PRN (13:02)
[2018-08-19] MEDS ORDERED: MAGNESIUM SULF RIDER 2 GM in PREMIX 1 EACH IV PRN (13:02)
[2018-08-19] MEDS ORDERED: MAGNESIUM SULF RIDER 4 GM in PREMIX 1 EACH IV PRN (13:02)
[2018-08-19] MEDS ORDERED: MORPHINE 4 MG/1 ML VIAL IV PRN (13:07)
[2018-08-19] MEDS ORDERED: ONDANSETRON 4 MG/2 ML VIAL IV PRN (13:07)
[2018-08-19] MEDS ORDERED: PROMETHAZINE 25 MG/1 ML VIAL IM PRN (13:07)
[2018-08-19] MEDS ORDERED: DEXTROSE 50% 25 GM/50 ML SYRINGE IV PRN (13:09)
[2018-08-19] MEDS ORDERED: GLUCAGON 1 MG VIAL IM PRN (13:09)
[2018-08-19] MEDS ORDERED: hydrALAZINE 20 MG/1 ML VIAL IV PRN (13:09)
[2018-08-19] MEDS ORDERED: HYDROmorphone 2 MG/1 ML VIAL IV STA (13:10)
[2018-08-19] MEDS ORDERED: HYDROmorphone 2 MG/1 ML VIAL ONE (13:26)
[2018-08-19] MEDS ORDERED: ONDANSETRON 4 MG/2 ML VIAL ONE (13:26)
[2018-08-19] MEDS ORDERED: METOPROLOL TARTRATE 5 MG/5 ML VIAL IV PRN (15:24)
[2018-08-19] MEDS ORDERED: METOPROLOL TARTRATE 5 MG/5 ML VIAL IV ONE (15:24)
[2018-08-19] MEDS: FUROSEMIDE 40 MG/4 ML VIAL IV SCH (16:18)
[2018-08-19] MEDS ORDERED: APIXABAN 5 MG TABLET PO SCH (21:00)
[2018-08-19] MEDS ORDERED: ATORVASTATIN 40 MG TABLET PO SCH (21:00)
[2018-08-19] MEDS: MAGNESIUM OXIDE 400 MG TABLET PO SCH (21:28)
[2018-08-19] MEDS: METOPROLOL SUCCINATE XL 25 MG TABLET PO SCH (21:28)
[2018-08-19] MEDS: INSULIN LISPRO 100 UNIT/ML SUBCUT SCH (22:26)
[2018-08-19] MEDS: CAPTOPRIL 6.25 MG TABLET PO SCH (22:26)
[2018-08-20] MEDS: INSULIN LISPRO 100 UNIT/ML SUBCUT SCH ×4 (00:27→18:21)
[2018-08-20 04:16] LABS: Basophils % 0.6 % (0.0-0.8); Eosinophils # 0.1 10*3/uL (0.0-0.87); Eosinophils % 1.1 % (0.00-10.9); Hemoglobin 13.6 GM/DL (14.0-18.0); Immature Granulocytes % 0.4 %; Immature Granulocytes Absolute 0.03 #; Lymphocytes # 1.7 10*3/uL (1.4-4.0); Lymphocytes % 23.2 % (21.2-54.2); Mean Corpuscular HGB Conc 31.6 GM/DL (32-36); Mean Corpuscular Hemoglobin 29 PG (27-34); Mean Corpuscular Volume 91.1 FL (87-102); Mean Platelet Volume 10.4 FL (9.6-12.0); Monocytes # 0.9 10*3/uL (0.11-0.8); NRBC # 0.02 10*3/uL; Neutrophils # 4.5 10*3/uL (1.4-7.4); Neutrophils % 62.7 % (38.7-73.9); Platelet Count 182 T/CUMM (130-400); Red Blood Count 4.72 MC/CUMM (3.8-5.5); Red Cell Distribution Width 18.3 % (9.3-17.3); White Blood Count 7.2 T/CUMM (4-12)
[2018-08-20 04:37] LABS: Albumin 2.5 G/DL (3.4-5.0); Bilirubin,Direct 2.59 MG/DL (0.0-0.20); Bilirubin,Indirect 1.8 MG/DL (0.0-1.0); Bilirubin,Total 4.4 MG/DL (0.2-1.0); Calcium 8.8 MG/DL (8.5-10.1); Osmolality,Calculated 280.5 MOS/KG (273-304); Potassium 4.2 MMOL/L (3.5-5.1); Total Protein 6.7 G/DL (6.4-8.3)
[2018-08-20 04:50] LABS: Albumin 2.7 G/DL (3.4-5.0); Bilirubin,Total 4.1 MG/DL (0.2-1.0); Calcium 8.8 MG/DL (8.5-10.1); Osmolality,Calculated 280.5 MOS/KG (273-304); Potassium 4.2 MMOL/L (3.5-5.1); Total Protein 6.8 G/DL (6.4-8.3)
[2018-08-20] MEDS ORDERED: glyBURIDE 2.5 MG TABLET PO SCH (08:00)
[2018-08-20] MEDS ORDERED: CLOPIDOGREL 75 MG TABLET PO SCH (09:00)
[2018-08-20] MEDS ORDERED: METOPROLOL SUCCINATE XL 25 MG TABLET PO SCH (09:00)
[2018-08-20] MEDS: ASPIRIN EC 81 MG TABLET PO SCH (09:31)
[2018-08-20] MEDS: FUROSEMIDE 40 MG/4 ML VIAL IV SCH ×2 (09:31→17:27)
[2018-08-20] MEDS: METOPROLOL SUCCINATE XL 25 MG TABLET PO SCH ×2 (09:32→21:13)
[2018-08-20] MEDS: MAGNESIUM OXIDE 400 MG TABLET PO SCH ×2 (09:33→21:13)
[2018-08-20] MEDS: LORATADINE 10 MG TABLET PO SCH (09:33)
[2018-08-20] MEDS: ENOXAPARIN 100 MG/ML SYRINGE SUBCUT SCH ×2 (09:34→21:13)
[2018-08-20] MEDS: FAMOTIDINE 20 MG TABLET PO SCH (09:34)
[2018-08-20] MEDS: CAPTOPRIL 6.25 MG TABLET PO SCH (09:34)
[2018-08-21] MEDS: INSULIN LISPRO 100 UNIT/ML SUBCUT SCH ×4 (03:00→18:44)
[2018-08-21 04:59] LABS: Basophils % 0.6 % (0.0-0.8); Eosinophils # 0.1 10*3/uL (0.0-0.87); Eosinophils % 2.2 % (0.00-10.9); Hemoglobin 12.6 GM/DL (14.0-18.0); Immature Granulocytes % 0.4 %; Immature Granulocytes Absolute 0.02 #; Lymphocytes # 1.3 10*3/uL (1.4-4.0); Lymphocytes % 25.3 % (21.2-54.2); Mean Corpuscular HGB Conc 32.3 GM/DL (32-36); Mean Corpuscular Hemoglobin 29 PG (27-34); Mean Corpuscular Volume 88.4 FL (87-102); Mean Platelet Volume 10.5 FL (9.6-12.0); Monocytes # 0.6 10*3/uL (0.11-0.8); Monocytes % 12.7 % (1.7-12.7); NRBC # 0.03 10*3/uL; Neutrophils # 2.9 10*3/uL (1.4-7.4); Neutrophils % 58.8 % (38.7-73.9); Platelet Count 182 T/CUMM (130-400); Red Blood Count 4.41 MC/CUMM (3.8-5.5); Red Cell Distribution Width 17.9 % (9.3-17.3)
[2018-08-21 05:26] LABS: Calcium 8.3 MG/DL (8.5-10.1); Osmolality,Calculated 282.4 MOS/KG (273-304); Potassium 3.4 MMOL/L (3.5-5.1)
[2018-08-21 05:29] LABS: Albumin 2.3 G/DL (3.4-5.0); Bilirubin,Total 3.7 MG/DL (0.2-1.0); Calcium 8.3 MG/DL (8.5-10.1); Osmolality,Calculated 282.4 MOS/KG (273-304); Potassium 3.3 MMOL/L (3.5-5.1); Total Protein 6.2 G/DL (6.4-8.3)
[2018-08-21] MEDS ORDERED: POTASSIUM CHLORIDE 20 MEQ TABLET PO SCH (09:00)
[2018-08-21] MEDS: METOPROLOL SUCCINATE XL 25 MG TABLET PO SCH ×2 (09:59→21:40)
[2018-08-21] MEDS: MAGNESIUM OXIDE 400 MG TABLET PO SCH ×2 (09:59→21:40)
[2018-08-21] MEDS: FUROSEMIDE 40 MG/4 ML VIAL IV SCH ×2 (10:00→16:25)
[2018-08-21] MEDS: FAMOTIDINE 20 MG TABLET PO SCH (10:00)
[2018-08-21] MEDS: LORATADINE 10 MG TABLET PO SCH (10:00)
[2018-08-21] MEDS: ASPIRIN EC 81 MG TABLET PO SCH (10:00)
[2018-08-21] MEDS: ENOXAPARIN 100 MG/ML SYRINGE SUBCUT SCH (10:01)
[2018-08-21] MEDS: APIXABAN 5 MG TABLET PO SCH (21:40)
[2018-08-21] MEDS: POTASSIUM CHLORIDE 20 MEQ TABLET PO SCH (21:40)
[2018-08-22] MEDS: INSULIN LISPRO 100 UNIT/ML SUBCUT SCH ×3 (01:20→11:44)
[2018-08-22 05:17] LABS: Basophils % 0.5 % (0.0-0.8); Eosinophils # 0.1 10*3/uL (0.0-0.87); Eosinophils % 1.6 % (0.00-10.9); Hematocrit 39.7 VOL% (42.0-52.0); Hemoglobin 13.1 GM/DL (14.0-18.0); Immature Granulocytes % 0.4 %; Immature Granulocytes Absolute 0.02 #; Lymphocytes # 1.2 10*3/uL (1.4-4.0); Lymphocytes % 21.9 % (21.2-54.2); Mean Corpuscular Hemoglobin 29 PG (27-34); Mean Corpuscular Volume 86.9 FL (87-102); Mean Platelet Volume 10.2 FL (9.6-12.0); Monocytes # 0.7 10*3/uL (0.11-0.8); NRBC # 0.03 10*3/uL; Neutrophils # 3.4 10*3/uL (1.4-7.4); Neutrophils % 62.6 % (38.7-73.9); Platelet Count 180 T/CUMM (130-400); Red Blood Count 4.57 MC/CUMM (3.8-5.5); Red Cell Distribution Width 18.1 % (9.3-17.3); White Blood Count 5.5 T/CUMM (4-12)
[2018-08-22 05:34] LABS: Calcium 8.3 MG/DL (8.5-10.1); Osmolality,Calculated 280.4 MOS/KG (273-304); Potassium 3.7 MMOL/L (3.5-5.1)
[2018-08-22 05:39] LABS: Albumin 2.4 G/DL (3.4-5.0); Bilirubin,Total 3.1 MG/DL (0.2-1.0); Calcium 8.3 MG/DL (8.5-10.1); Osmolality,Calculated 279.4 MOS/KG (273-304); Potassium 3.8 MMOL/L (3.5-5.1); Total Protein 6.5 G/DL (6.4-8.3)
[2018-08-22] MEDS: APIXABAN 5 MG TABLET PO SCH (09:51)
[2018-08-22] MEDS: LORATADINE 10 MG TABLET PO SCH (09:51)
[2018-08-22] MEDS: POTASSIUM CHLORIDE 20 MEQ TABLET PO SCH (09:51)
[2018-08-22] MEDS: MAGNESIUM OXIDE 400 MG TABLET PO SCH (09:51)
[2018-08-22] MEDS: ASPIRIN EC 81 MG TABLET PO SCH (09:51)
[2018-08-22] MEDS: FAMOTIDINE 20 MG TABLET PO SCH (09:52)
[2018-08-22] MEDS: METOPROLOL SUCCINATE XL 25 MG TABLET PO SCH (09:52)
[2018-08-22] MEDS: FUROSEMIDE 40 MG/4 ML VIAL IV SCH (09:52)
[2018-08-22 11:53] VITALS: BP 101/82
[2018-08-22] MEDS ORDERED: FUROSEMIDE 40 MG TABLET PO SCH (16:00)
[2018-08-23] MEDS ORDERED: POTASSIUM CHLORIDE 20 MEQ TABLET PO SCH (09:00)
== END 2018-08-22 12:58 | disposition home health service (06) | DRG 292 ==
LOC: EDBD → EDUNIT# → N.ED 10:18 → N.EDINP 12:47 → N.2E 13:22
PROVIDERS: ADMIT Internal Medicine; ATTEND Internal Medicine

== ENCOUNTER 2018-08-26 12:08 | Inpatient (IN) ==
[2018-08-26] MEDS ORDERED: HYDROmorphone 2 MG/1 ML VIAL IV STA (12:45)
[2018-08-26] MEDS ORDERED: PANTOPRAZOLE 40 MG VIAL IV STA (12:45)
[2018-08-26] MEDS ORDERED: ALUM/MAG/SIMETH/LIDO VISC 1:1 30 ML BOTTLE PO STA (12:45)
[2018-08-26] MEDS ORDERED: ONDANSETRON 4 MG/2 ML VIAL IV STA (12:45)
[2018-08-26 13:02] LABS: Basophils % 0.5 % (0.0-0.8); Eosinophils # 0.1 10*3/uL (0.0-0.87); Eosinophils % 1.4 % (0.00-10.9); Hematocrit 44.2 VOL% (42.0-52.0); Hemoglobin 13.9 GM/DL (14.0-18.0); Immature Granulocytes % 0.2 %; Immature Granulocytes Absolute 0.01 #; Lymphocytes # 1.2 10*3/uL (1.4-4.0); Lymphocytes % 18.3 % (21.2-54.2); Mean Corpuscular HGB Conc 31.4 GM/DL (32-36); Mean Corpuscular Hemoglobin 29 PG (27-34); Mean Corpuscular Volume 90.8 FL (87-102); Mean Platelet Volume 10.1 FL (9.6-12.0); Monocytes # 0.6 10*3/uL (0.11-0.8); Monocytes % 9.1 % (1.7-12.7); Neutrophils # 4.5 10*3/uL (1.4-7.4); Neutrophils % 70.5 % (38.7-73.9); Platelet Count 201 T/CUMM (130-400); Red Blood Count 4.87 MC/CUMM (3.8-5.5); Red Cell Distribution Width 18.4 % (9.3-17.3); White Blood Count 6.4 T/CUMM (4-12)
[2018-08-26 13:20] LABS: Alanine Aminotransferase 23 U/L (16-61); Albumin 2.5 G/DL (3.4-5.0); Alkaline Phosphatase 130 U/L (45-117); Amylase 229 U/L (25-115); Aspartate Amino Transferase 28 U/L (0-37); Blood Urea Nitrogen 19 MG/DL (7-18); Calcium 8.5 MG/DL (8.5-10.1); Glucose 109 MG/DL (74-106); Osmolality,Calculated 281.4 MOS/KG (273-304); Sodium 140 MMOL/L (136-145); Total Protein 6.8 G/DL (6.4-8.3)
[2018-08-26] MEDS ORDERED: PIPERACILLIN/TAZOBACTAM 3,375 MG in SODIUM CHLORIDE 0.9% 100 ML IV STA (14:08)
[2018-08-26 14:33] LABS: Apearance,Urine Slightly Hazy (Clear); Bacteria,Urine Occasional /HPF (Few); Bilirubin,Urine Small mg/dL (Negative); Blood, Urine Small mg/dL (Negative); Glucose,Urine (UA) Negative (Negative); Hyaline Casts,Urine 11 /LPF (0-3); Ketones,Urine Negative (Negative); Mucus,Urine Occasional /LPF (Occasional); Nitrite,Urine Negative (Negative); Protein,Urine 30 MG/DL; RBC,Urine 9 /HPF (0-4); Squamous Epithelial Cell,Urine Occasional /HPF (0-10); Urine Color Amber (Yellow); Urine Specific Gravity 1.023 (1.001-1.035); WBC,Urine 3 /HPF (0-6)
[2018-08-26] MEDS ORDERED: ACETAMINOPHEN 325 MG TABLET PO PRN (14:47)
[2018-08-26] MEDS: HEPARIN 5,000 UNIT/1 ML VIAL SUBCUT SCH ×2 (17:32→23:15)
[2018-08-26] MEDS: FUROSEMIDE 40 MG TABLET PO SCH (17:33)
[2018-08-26] MEDS: ATORVASTATIN 20 MG TABLET PO SCH (20:58)
[2018-08-26] MEDS: PIPERACILLIN/TAZOBACTAM 3,375 MG in SODIUM CHLORIDE 0.9% 100 ML IV SCH (20:58)
[2018-08-26] MEDS: CAPTOPRIL 6.25 MG TABLET PO SCH (20:58)
[2018-08-26] MEDS: MAGNESIUM OXIDE 400 MG TABLET PO SCH (20:58)
[2018-08-26] MEDS: POTASSIUM CHLORIDE 20 MEQ TABLET PO SCH (20:58)
[2018-08-27] MEDS: PIPERACILLIN/TAZOBACTAM 3,375 MG in SODIUM CHLORIDE 0.9% 100 ML IV SCH ×3 (04:35→21:32)
[2018-08-27 05:56] LABS: Basophils % 0.5 % (0.0-0.8); Eosinophils # 0.1 10*3/uL (0.0-0.87); Eosinophils % 2.1 % (0.00-10.9); Hematocrit 43.7 VOL% (42.0-52.0); Hemoglobin 13.6 GM/DL (14.0-18.0); Immature Granulocytes % 0.3 %; Immature Granulocytes Absolute 0.02 #; Lymphocytes # 0.9 10*3/uL (1.4-4.0); Lymphocytes % 15.2 % (21.2-54.2); Mean Corpuscular HGB Conc 31.1 GM/DL (32-36); Mean Corpuscular Hemoglobin 29 PG (27-34); Mean Corpuscular Volume 91.6 FL (87-102); Mean Platelet Volume 10.5 FL (9.6-12.0); Monocytes # 0.7 10*3/uL (0.11-0.8); Monocytes % 12.7 % (1.7-12.7); NRBC # 0.02 10*3/uL; Neutrophils % 69.2 % (38.7-73.9); Platelet Count 204 T/CUMM (130-400); Red Blood Count 4.77 MC/CUMM (3.8-5.5); Red Cell Distribution Width 18.5 % (9.3-17.3); White Blood Count 5.7 T/CUMM (4-12)
[2018-08-27] MEDS: HEPARIN 5,000 UNIT/1 ML VIAL SUBCUT SCH ×3 (06:16→22:21)
[2018-08-27 06:18] LABS: Albumin 2.5 G/DL (3.4-5.0); Bilirubin,Total 3.8 MG/DL (0.2-1.0); Calcium 8.4 MG/DL (8.5-10.1); Osmolality,Calculated 280.4 MOS/KG (273-304); Potassium 4.3 MMOL/L (3.5-5.1); Total Protein 6.7 G/DL (6.4-8.3)
[2018-08-27] MEDS: glyBURIDE 2.5 MG TABLET PO SCH (08:43)
[2018-08-27] MEDS: POTASSIUM CHLORIDE 20 MEQ TABLET PO SCH ×2 (08:44→20:33)
[2018-08-27] MEDS: DOCUSATE SODIUM 100 MG CAPSULE PO PRN ×2 (08:44→11:59)
[2018-08-27] MEDS: CAPTOPRIL 6.25 MG TABLET PO SCH ×2 (08:44→20:33)
[2018-08-27] MEDS: LORATADINE 10 MG TABLET PO SCH (08:44)
[2018-08-27] MEDS: FUROSEMIDE 40 MG TABLET PO SCH ×2 (08:44→15:14)
[2018-08-27] MEDS: PANTOPRAZOLE 40 MG TABLET PO SCH (08:45)
[2018-08-27] MEDS: ASPIRIN EC 81 MG TABLET PO SCH (08:45)
[2018-08-27] MEDS: METOPROLOL SUCCINATE XL 25 MG TABLET PO SCH ×2 (08:45→10:10)
[2018-08-27] MEDS: FAMOTIDINE 20 MG TABLET PO SCH (08:45)
[2018-08-27] MEDS: MAGNESIUM OXIDE 400 MG TABLET PO SCH ×2 (08:45→20:34)
[2018-08-27] MEDS: ATORVASTATIN 20 MG TABLET PO SCH (20:33)
[2018-08-28] MEDS: PIPERACILLIN/TAZOBACTAM 3,375 MG in SODIUM CHLORIDE 0.9% 100 ML IV SCH ×3 (04:45→21:03)
[2018-08-28] MEDS: HEPARIN 5,000 UNIT/1 ML VIAL SUBCUT SCH ×3 (06:15→23:27)
[2018-08-28] MEDS: METOPROLOL SUCCINATE XL 25 MG TABLET PO SCH (09:24)
[2018-08-28] MEDS: glyBURIDE 2.5 MG TABLET PO SCH (10:15)
[2018-08-28] MEDS: LORATADINE 10 MG TABLET PO SCH (10:16)
[2018-08-28] MEDS: FAMOTIDINE 20 MG TABLET PO SCH (10:16)
[2018-08-28] MEDS: FUROSEMIDE 40 MG TABLET PO SCH ×2 (10:16→16:46)
[2018-08-28] MEDS: CAPTOPRIL 6.25 MG TABLET PO SCH ×2 (10:16→21:03)
[2018-08-28] MEDS: MAGNESIUM OXIDE 400 MG TABLET PO SCH ×2 (10:16→21:03)
[2018-08-28] MEDS: POTASSIUM CHLORIDE 20 MEQ TABLET PO SCH ×2 (10:16→21:02)
[2018-08-28] MEDS: ASPIRIN EC 81 MG TABLET PO SCH (10:16)
[2018-08-28] MEDS: PANTOPRAZOLE 40 MG TABLET PO SCH (10:16)
[2018-08-28 14:12] LABS: INR 1.3; Partial Thromboplastin Time 28.9 SECS (0-40)
[2018-08-28 14:23] LABS: Albumin 2.2 G/DL (3.4-5.0); Bilirubin,Total 2.8 MG/DL (0.2-1.0); Calcium 7.9 MG/DL (8.5-10.1); Osmolality,Calculated 273.8 MOS/KG (273-304); Potassium 4.3 MMOL/L (3.5-5.1); Total Protein 6.3 G/DL (6.4-8.3)
[2018-08-28] MEDS: ATORVASTATIN 20 MG TABLET PO SCH (21:03)
[2018-08-29 04:58] LABS: Basophils % 0.6 % (0.0-0.8); Eosinophils # 0.2 10*3/uL (0.0-0.87); Eosinophils % 3.6 % (0.00-10.9); Hematocrit 40.5 VOL% (42.0-52.0); Hemoglobin 13.2 GM/DL (14.0-18.0); Immature Granulocytes % 0.6 %; Immature Granulocytes Absolute 0.03 #; Lymphocytes # 1.2 10*3/uL (1.4-4.0); Mean Corpuscular HGB Conc 32.6 GM/DL (32-36); Mean Corpuscular Hemoglobin 29 PG (27-34); Mean Corpuscular Volume 88.6 FL (87-102); Mean Platelet Volume 9.8 FL (9.6-12.0); Monocytes # 0.8 10*3/uL (0.11-0.8); Monocytes % 14.7 % (1.7-12.7); Neutrophils # 3.1 10*3/uL (1.4-7.4); Neutrophils % 58.5 % (38.7-73.9); Platelet Count 194 T/CUMM (130-400); Red Blood Count 4.57 MC/CUMM (3.8-5.5); Red Cell Distribution Width 17.7 % (9.3-17.3); White Blood Count 5.3 T/CUMM (4-12)
[2018-08-29] MEDS: PIPERACILLIN/TAZOBACTAM 3,375 MG in SODIUM CHLORIDE 0.9% 100 ML IV SCH ×2 (06:56→15:07)
[2018-08-29] MEDS: glyBURIDE 2.5 MG TABLET PO SCH (09:16)
[2018-08-29] MEDS: POTASSIUM CHLORIDE 20 MEQ TABLET PO SCH ×2 (09:16→21:13)
[2018-08-29] MEDS: ASPIRIN EC 81 MG TABLET PO SCH (09:16)
[2018-08-29] MEDS: CAPTOPRIL 6.25 MG TABLET PO SCH ×2 (09:16→21:13)
[2018-08-29] MEDS: FUROSEMIDE 40 MG TABLET PO SCH ×2 (09:16→15:07)
[2018-08-29] MEDS: LORATADINE 10 MG TABLET PO SCH (09:16)
[2018-08-29] MEDS: MAGNESIUM OXIDE 400 MG TABLET PO SCH ×2 (09:16→21:13)
[2018-08-29] MEDS: PANTOPRAZOLE 40 MG TABLET PO SCH (09:17)
[2018-08-29] MEDS: METOPROLOL SUCCINATE XL 25 MG TABLET PO SCH (09:17)
[2018-08-29] MEDS: FAMOTIDINE 20 MG TABLET PO SCH (09:17)
[2018-08-29] MEDS: HEPARIN 5,000 UNIT/1 ML VIAL SUBCUT SCH (18:05)
[2018-08-29] MEDS: ATORVASTATIN 20 MG TABLET PO SCH (21:13)
[2018-08-30] MEDS: PIPERACILLIN/TAZOBACTAM 3,375 MG in SODIUM CHLORIDE 0.9% 100 ML IV SCH ×4 (00:24→22:57)
[2018-08-30] MEDS: HEPARIN 5,000 UNIT/1 ML VIAL SUBCUT SCH ×3 (04:05→17:33)
[2018-08-30] MEDS: ASPIRIN EC 81 MG TABLET PO SCH (09:43)
[2018-08-30] MEDS: FUROSEMIDE 40 MG TABLET PO SCH ×2 (09:43→15:42)
[2018-08-30] MEDS: CAPTOPRIL 6.25 MG TABLET PO SCH ×2 (09:43→21:31)
[2018-08-30] MEDS: PANTOPRAZOLE 40 MG TABLET PO SCH (09:43)
[2018-08-30] MEDS: METOPROLOL SUCCINATE XL 25 MG TABLET PO SCH (09:43)
[2018-08-30] MEDS: LORATADINE 10 MG TABLET PO SCH (09:43)
[2018-08-30] MEDS: MAGNESIUM OXIDE 400 MG TABLET PO SCH ×2 (09:43→21:30)
[2018-08-30] MEDS: glyBURIDE 2.5 MG TABLET PO SCH (09:43)
[2018-08-30] MEDS: FAMOTIDINE 20 MG TABLET PO SCH (09:44)
[2018-08-30] MEDS: POTASSIUM CHLORIDE 20 MEQ TABLET PO SCH ×2 (09:44→21:31)
[2018-08-30 12:45] LABS: Troponin I 0.031 NG/ML (0.00-0.045)
[2018-08-30 13:28] LABS: Potassium 4.4 MMOL/L (3.5-5.1)
[2018-08-30] MEDS: ATORVASTATIN 20 MG TABLET PO SCH (21:31)
[2018-08-31] MEDS: HEPARIN 5,000 UNIT/1 ML VIAL SUBCUT SCH ×3 (02:44→17:35)
[2018-08-31 05:11] LABS: Basophils # 0.1 10*3/uL (0.0-0.2); Basophils % 1.2 % (0.0-0.8); Eosinophils # 0.2 10*3/uL (0.0-0.87); Eosinophils % 5.2 % (0.00-10.9); Hematocrit 42.1 VOL% (42.0-52.0); Hemoglobin 13.6 GM/DL (14.0-18.0); Immature Granulocytes % 0.5 %; Immature Granulocytes Absolute 0.02 #; Lymphocytes # 0.8 10*3/uL (1.4-4.0); Lymphocytes % 19.9 % (21.2-54.2); Mean Corpuscular HGB Conc 32.3 GM/DL (32-36); Mean Corpuscular Hemoglobin 28 PG (27-34); Mean Corpuscular Volume 87.9 FL (87-102); Mean Platelet Volume 10.4 FL (9.6-12.0); Monocytes # 0.8 10*3/uL (0.11-0.8); Neutrophils # 2.3 10*3/uL (1.4-7.4); Neutrophils % 55.2 % (38.7-73.9); Platelet Count 217 T/CUMM (130-400); Red Blood Count 4.79 MC/CUMM (3.8-5.5); Red Cell Distribution Width 17.8 % (9.3-17.3); White Blood Count 4.2 T/CUMM (4-12)
[2018-08-31 05:43] LABS: Albumin 2.4 G/DL (3.4-5.0); Bilirubin,Total 2.8 MG/DL (0.2-1.0); Calcium 8.6 MG/DL (8.5-10.1); Osmolality,Calculated 279.4 MOS/KG (273-304); Potassium 4.5 MMOL/L (3.5-5.1); Total Protein 6.8 G/DL (6.4-8.3)
[2018-08-31 05:49] LABS: Band Neutrophils 3 % (0-10); Eosinophils 9 % (0-10); Lymphocytes 21 % (20-55); Platelet Estimate Normal; Segmented Neutrophils 49 % (50-85); Total Cells Counted 100
[2018-08-31] MEDS: PIPERACILLIN/TAZOBACTAM 3,375 MG in SODIUM CHLORIDE 0.9% 100 ML IV SCH ×2 (06:31→15:21)
[2018-08-31] MEDS: ASPIRIN EC 81 MG TABLET PO SCH (10:19)
[2018-08-31] MEDS: FUROSEMIDE 40 MG TABLET PO SCH ×2 (10:19→17:34)
[2018-08-31] MEDS: POTASSIUM CHLORIDE 20 MEQ TABLET PO SCH (10:19)
[2018-08-31] MEDS: LORATADINE 10 MG TABLET PO SCH (10:19)
[2018-08-31] MEDS: FAMOTIDINE 20 MG TABLET PO SCH (10:20)
[2018-08-31] MEDS: METOPROLOL SUCCINATE XL 25 MG TABLET PO SCH (10:20)
[2018-08-31] MEDS: PANTOPRAZOLE 40 MG TABLET PO SCH (10:20)
[2018-08-31] MEDS: MAGNESIUM OXIDE 400 MG TABLET PO SCH ×2 (10:20→20:24)
[2018-08-31] MEDS: CAPTOPRIL 6.25 MG TABLET PO SCH ×2 (10:21→20:23)
[2018-08-31] MEDS: glyBURIDE 2.5 MG TABLET PO SCH (10:22)
[2018-08-31 10:43] LABS: Free T4 (Free Thyroxine) 1.64 NG/DL (0.76-1.46)
[2018-08-31] MEDS: MAGNESIUM CHLORIDE 64 MG TABLET PO SCH ×2 (12:29→20:24)
[2018-08-31] MEDS: SPIRONOLACTONE 25 MG TABLET PO SCH (12:30)
[2018-08-31] MEDS: ASCORBIC ACID 500 MG TABLET PO SCH ×2 (12:30→20:24)
[2018-08-31] MEDS: ATORVASTATIN 20 MG TABLET PO SCH (20:23)
[2018-09-01] MEDS: PIPERACILLIN/TAZOBACTAM 3,375 MG in SODIUM CHLORIDE 0.9% 100 ML IV SCH ×2 (00:35→06:21)
[2018-09-01] MEDS: HEPARIN 5,000 UNIT/1 ML VIAL SUBCUT SCH ×2 (01:30→09:53)
[2018-09-01 05:33] LABS: Basophils # 0.1 10*3/uL (0.0-0.2); Basophils % 1.2 % (0.0-0.8); Eosinophils # 0.3 10*3/uL (0.0-0.87); Eosinophils % 5.9 % (0.00-10.9); Hematocrit 42.6 VOL% (42.0-52.0); Hemoglobin 13.5 GM/DL (14.0-18.0); Immature Granulocytes % 0.2 %; Immature Granulocytes Absolute 0.01 #; Lymphocytes # 1.3 10*3/uL (1.4-4.0); Lymphocytes % 30.4 % (21.2-54.2); Mean Corpuscular HGB Conc 31.7 GM/DL (32-36); Mean Corpuscular Hemoglobin 29 PG (27-34); Mean Corpuscular Volume 90.6 FL (87-102); Mean Platelet Volume 10.2 FL (9.6-12.0); Monocytes # 0.7 10*3/uL (0.11-0.8); Monocytes % 15.5 % (1.7-12.7); Neutrophils % 46.8 % (38.7-73.9); Platelet Count 211 T/CUMM (130-400); White Blood Count 4.3 T/CUMM (4-12)
[2018-09-01 05:47] LABS: Albumin 2.3 G/DL (3.4-5.0); Bilirubin,Total 2.2 MG/DL (0.2-1.0); Calcium 8.6 MG/DL (8.5-10.1); Osmolality,Calculated 279.4 MOS/KG (273-304); Total Protein 6.9 G/DL (6.4-8.3)
[2018-09-01] MEDS: LEVOTHYROXINE 50 MCG TABLET PO SCH (06:21)
[2018-09-01] MEDS: FUROSEMIDE 40 MG TABLET PO SCH ×2 (09:50→16:58)
[2018-09-01] MEDS: LORATADINE 10 MG TABLET PO SCH (09:51)
[2018-09-01] MEDS: SPIRONOLACTONE 25 MG TABLET PO SCH (09:51)
[2018-09-01] MEDS: CAPTOPRIL 6.25 MG TABLET PO SCH ×2 (09:51→20:49)
[2018-09-01] MEDS: ASPIRIN EC 81 MG TABLET PO SCH (09:51)
[2018-09-01] MEDS: METOPROLOL SUCCINATE XL 25 MG TABLET PO SCH (09:52)
[2018-09-01] MEDS: POTASSIUM CHLORIDE 20 MEQ TABLET PO SCH (09:52)
[2018-09-01] MEDS: FAMOTIDINE 20 MG TABLET PO SCH (09:52)
[2018-09-01] MEDS: MAGNESIUM OXIDE 400 MG TABLET PO SCH ×2 (09:52→20:51)
[2018-09-01] MEDS: MAGNESIUM CHLORIDE 64 MG TABLET PO SCH ×2 (09:52→20:51)
[2018-09-01] MEDS: PANTOPRAZOLE 40 MG TABLET PO SCH (09:52)
[2018-09-01] MEDS: ASCORBIC ACID 500 MG TABLET PO SCH ×2 (09:53→20:51)
[2018-09-01] MEDS: glyBURIDE 2.5 MG TABLET PO SCH (10:02)
[2018-09-01] MEDS: APIXABAN 5 MG TABLET PO SCH ×2 (13:24→20:51)
[2018-09-01] MEDS: LEVOFLOXACIN 750 MG TABLET PO SCH (13:24)
[2018-09-01] MEDS: metroNIDAZOLE 500 MG TABLET PO SCH ×2 (15:18→20:51)
[2018-09-01] MEDS: ATORVASTATIN 20 MG TABLET PO SCH (20:54)
[2018-09-02 05:23] LABS: Basophils # 0.1 10*3/uL (0.0-0.2); Basophils % 1.1 % (0.0-0.8); Eosinophils # 0.2 10*3/uL (0.0-0.87); Eosinophils % 5.4 % (0.00-10.9); Hematocrit 41.5 VOL% (42.0-52.0); Hemoglobin 13.2 GM/DL (14.0-18.0); Immature Granulocytes % 0.5 %; Immature Granulocytes Absolute 0.02 #; Lymphocytes # 1.3 10*3/uL (1.4-4.0); Lymphocytes % 28.6 % (21.2-54.2); Mean Corpuscular HGB Conc 31.8 GM/DL (32-36); Mean Corpuscular Hemoglobin 29 PG (27-34); Mean Corpuscular Volume 90.4 FL (87-102); Mean Platelet Volume 9.9 FL (9.6-12.0); Monocytes # 0.8 10*3/uL (0.11-0.8); Monocytes % 17.3 % (1.7-12.7); Neutrophils # 2.1 10*3/uL (1.4-7.4); Neutrophils % 47.1 % (38.7-73.9); Platelet Count 203 T/CUMM (130-400); Red Blood Count 4.59 MC/CUMM (3.8-5.5); Red Cell Distribution Width 18.1 % (9.3-17.3); White Blood Count 4.4 T/CUMM (4-12)
[2018-09-02] MEDS: LEVOTHYROXINE 50 MCG TABLET PO SCH (05:32)
[2018-09-02 05:51] LABS: Albumin 2.3 G/DL (3.4-5.0); Bilirubin,Total 2.4 MG/DL (0.2-1.0); Calcium 8.4 MG/DL (8.5-10.1); Osmolality,Calculated 281.4 MOS/KG (273-304); Total Protein 6.8 G/DL (6.4-8.3)
[2018-09-02 06:08] LABS: Acanthocytes Few; Anisocytosis 1+; Band Neutrophils 2 % (0-10); Eosinophils 8 % (0-10); Lymphocytes 30 % (20-55); Macrocytosis 1+; Ovalocytes Few; Platelet Estimate Normal; Segmented Neutrophils 43 % (50-85); Total Cells Counted 100
[2018-09-02] MEDS: CAPTOPRIL 6.25 MG TABLET PO SCH (08:35)
[2018-09-02] MEDS: METOPROLOL SUCCINATE XL 25 MG TABLET PO SCH (08:35)
[2018-09-02] MEDS: APIXABAN 5 MG TABLET PO SCH (08:35)
[2018-09-02] MEDS: glyBURIDE 2.5 MG TABLET PO SCH (08:35)
[2018-09-02] MEDS: POTASSIUM CHLORIDE 20 MEQ TABLET PO SCH (08:35)
[2018-09-02] MEDS: MAGNESIUM OXIDE 400 MG TABLET PO SCH (08:36)
[2018-09-02] MEDS: LORATADINE 10 MG TABLET PO SCH (08:36)
[2018-09-02] MEDS: ASCORBIC ACID 500 MG TABLET PO SCH (08:36)
[2018-09-02] MEDS: FAMOTIDINE 20 MG TABLET PO SCH (08:36)
[2018-09-02] MEDS: ASPIRIN EC 81 MG TABLET PO SCH (08:36)
[2018-09-02] MEDS: MAGNESIUM CHLORIDE 64 MG TABLET PO SCH (08:36)
[2018-09-02] MEDS: FUROSEMIDE 40 MG TABLET PO SCH (08:36)
[2018-09-02] MEDS: LEVOFLOXACIN 750 MG TABLET PO SCH (08:36)
[2018-09-02] MEDS: metroNIDAZOLE 500 MG TABLET PO SCH (08:36)
[2018-09-02] MEDS: PANTOPRAZOLE 40 MG TABLET PO SCH (08:36)
[2018-09-02] MEDS: SPIRONOLACTONE 25 MG TABLET PO SCH (08:36)
[2018-09-02 11:34] VITALS: BP 99/79
== END 2018-09-02 13:58 | disposition home or self-care (01) | DRG 445 ==
LOC: EDUNIT# → EDBD → N.EDINP 12:08 → N.ED 12:08 → SUATTDRO 14:47 → N.3E 15:55
PROVIDERS: ADMIT Internal Medicine; ATTEND Internal Medicine

== ENCOUNTER 2018-10-03 15:46 | Inpatient (IN) ==
[2018-10-03] MEDS ORDERED: ONDANSETRON 4 MG/2 ML VIAL IV STA (16:03)
[2018-10-03] MEDS ORDERED: MORPHINE 4 MG/1 ML VIAL IV STA (16:03)
[2018-10-03 17:23] LABS: Basophils % 0.4 % (0.0-0.8); Eosinophils % 0.6 % (0.00-10.9); Hemoglobin 15.3 GM/DL (14.0-18.0); Immature Granulocytes % 0.3 %; Immature Granulocytes Absolute 0.02 #; Lymphocytes # 1.1 10*3/uL (1.4-4.0); Lymphocytes % 16.5 % (21.2-54.2); Mean Corpuscular HGB Conc 32.6 GM/DL (32-36); Mean Corpuscular Hemoglobin 28 PG (27-34); Mean Corpuscular Volume 86.7 FL (87-102); Mean Platelet Volume 11.3 FL (9.6-12.0); Monocytes # 0.8 10*3/uL (0.11-0.8); Monocytes % 12.5 % (1.7-12.7); NRBC # 0.03 10*3/uL; Neutrophils # 4.7 10*3/uL (1.4-7.4); Neutrophils % 69.7 % (38.7-73.9); Platelet Count 197 T/CUMM (130-400); Red Blood Count 5.42 MC/CUMM (3.8-5.5); Red Cell Distribution Width 18.1 % (9.3-17.3); White Blood Count 6.7 T/CUMM (4-12)
[2018-10-03] MEDS ORDERED: HYDROmorphone 2 MG/1 ML VIAL ONE (17:44)
[2018-10-03 17:45] LABS: Alanine Aminotransferase 37 U/L (16-61); Albumin 2.9 G/DL (3.4-5.0); Alkaline Phosphatase 182 U/L (45-117); Aspartate Amino Transferase 59 U/L (0-37); Blood Urea Nitrogen 31 MG/DL (7-18); Calcium 8.9 MG/DL (8.5-10.1); Glucose 84 MG/DL (74-106); Lipase < 50.0 U/L (73-393); Osmolality,Calculated 271.4 MOS/KG (273-304); Potassium 4.8 MMOL/L (3.5-5.1); Sodium 133 MMOL/L (136-145); Total Protein 7.3 G/DL (6.4-8.3)
[2018-10-03] MEDS ORDERED: HYDROmorphone 2 MG/1 ML VIAL IV STA (17:49)
[2018-10-03] MEDS: LEVOFLOXACIN INJ 500 MG in PREMIX 1 EACH IV SCH (18:50)
[2018-10-03] MEDS ORDERED: GLUCAGON 1 MG VIAL IM PRN (22:32)
[2018-10-03] MEDS ORDERED: ONDANSETRON 4 MG/2 ML VIAL IV PRN (22:32)
[2018-10-03] MEDS ORDERED: MORPHINE 4 MG/1 ML VIAL IV PRN (22:32)
[2018-10-03] MEDS ORDERED: DOCUSATE SODIUM 100 MG CAPSULE PO PRN (22:32)
[2018-10-03] MEDS ORDERED: ACETAMINOPHEN 325 MG TABLET PO PRN (22:32)
[2018-10-03] MEDS: ASCORBIC ACID 500 MG TABLET PO SCH (23:14)
[2018-10-03] MEDS: MAGNESIUM OXIDE 400 MG TABLET PO SCH (23:15)
[2018-10-03] MEDS: FUROSEMIDE 40 MG/4 ML VIAL IV SCH (23:15)
[2018-10-03] MEDS: ATORVASTATIN 20 MG TABLET PO SCH (23:15)
[2018-10-03] MEDS: APIXABAN 5 MG TABLET PO SCH (23:15)
[2018-10-03] MEDS: POTASSIUM CHLORIDE 20 MEQ TABLET PO SCH (23:15)
[2018-10-03] MEDS: CAPTOPRIL 6.25 MG TABLET PO SCH (23:20)
[2018-10-03] MEDS: INSULIN LISPRO 100 UNIT/ML SUBCUT SCH (23:20)
[2018-10-04 03:52] LABS: Basophils % 0.3 % (0.0-0.8); Eosinophils % 0.5 % (0.00-10.9); Hematocrit 44.1 VOL% (42.0-52.0); Hemoglobin 14.1 GM/DL (14.0-18.0); Immature Granulocytes % 0.3 %; Immature Granulocytes Absolute 0.02 #; Lymphocytes # 0.9 10*3/uL (1.4-4.0); Mean Corpuscular Hemoglobin 28 PG (27-34); Mean Corpuscular Volume 88.4 FL (87-102); Mean Platelet Volume 10.4 FL (9.6-12.0); Monocytes # 0.7 10*3/uL (0.11-0.8); Monocytes % 11.3 % (1.7-12.7); NRBC # 0.03 10*3/uL; Neutrophils # 4.6 10*3/uL (1.4-7.4); Neutrophils % 72.6 % (38.7-73.9); Platelet Count 168 T/CUMM (130-400); Red Blood Count 4.99 MC/CUMM (3.8-5.5); Red Cell Distribution Width 17.2 % (9.3-17.3); White Blood Count 6.3 T/CUMM (4-12)
[2018-10-04 04:02] LABS: PT Patient Result 21.3 SECS
[2018-10-04 04:06] LABS: Alanine Aminotransferase 36 U/L (16-61); Albumin 2.5 G/DL (3.4-5.0); Alkaline Phosphatase 155 U/L (45-117); Aspartate Amino Transferase 52 U/L (0-37); Blood Urea Nitrogen 29 MG/DL (7-18); Calcium 8.4 MG/DL (8.5-10.1); Glucose 172 MG/DL (74-106); Osmolality,Calculated 275.4 MOS/KG (273-304); Potassium 4.5 MMOL/L (3.5-5.1); Sodium 133 MMOL/L (136-145); Total Protein 6.8 G/DL (6.4-8.3); Troponin I 0.039 NG/ML (0.00-0.045)
[2018-10-04] MEDS: LEVOTHYROXINE 50 MCG TABLET PO SCH (06:28)
[2018-10-04] MEDS: POTASSIUM CHLORIDE 20 MEQ TABLET PO SCH ×2 (09:57→22:04)
[2018-10-04] MEDS: SPIRONOLACTONE 25 MG TABLET PO SCH (09:57)
[2018-10-04] MEDS: ASCORBIC ACID 500 MG TABLET PO SCH ×2 (09:57→22:04)
[2018-10-04] MEDS: CAPTOPRIL 6.25 MG TABLET PO SCH ×2 (09:57→22:07)
[2018-10-04] MEDS: glyBURIDE 2.5 MG TABLET PO SCH (09:57)
[2018-10-04] MEDS: FAMOTIDINE 20 MG TABLET PO SCH (09:58)
[2018-10-04] MEDS: INSULIN LISPRO 100 UNIT/ML SUBCUT SCH ×4 (09:58→22:10)
[2018-10-04] MEDS: ASPIRIN EC 81 MG TABLET PO SCH (09:58)
[2018-10-04] MEDS: LORATADINE 10 MG TABLET PO SCH (09:58)
[2018-10-04] MEDS: APIXABAN 5 MG TABLET PO SCH ×2 (09:58→22:09)
[2018-10-04] MEDS: CLOPIDOGREL 75 MG TABLET PO SCH (09:58)
[2018-10-04] MEDS: METOPROLOL SUCCINATE XL 25 MG TABLET PO SCH (09:58)
[2018-10-04] MEDS: FUROSEMIDE 40 MG/4 ML VIAL IV SCH ×2 (09:58→16:23)
[2018-10-04] MEDS: MAGNESIUM OXIDE 400 MG TABLET PO SCH ×2 (09:58→22:04)
[2018-10-04] MEDS: LEVOFLOXACIN INJ 500 MG in PREMIX 1 EACH IV SCH (18:17)
[2018-10-04] MEDS: ATORVASTATIN 20 MG TABLET PO SCH (22:05)
[2018-10-05 06:09] LABS: Basophils % 0.5 % (0.0-0.8); Eosinophils # 0.1 10*3/uL (0.0-0.87); Eosinophils % 0.9 % (0.00-10.9); Hematocrit 44.8 VOL% (42.0-52.0); Hemoglobin 14.4 GM/DL (14.0-18.0); Immature Granulocytes % 0.4 %; Immature Granulocytes Absolute 0.02 #; Lymphocytes % 17.7 % (21.2-54.2); Mean Corpuscular HGB Conc 32.1 GM/DL (32-36); Mean Corpuscular Hemoglobin 28 PG (27-34); Mean Corpuscular Volume 87.3 FL (87-102); Mean Platelet Volume 10.9 FL (9.6-12.0); NRBC # 0.02 10*3/uL; Neutrophils # 3.6 10*3/uL (1.4-7.4); Neutrophils % 63.5 % (38.7-73.9); Platelet Count 182 T/CUMM (130-400); Red Blood Count 5.13 MC/CUMM (3.8-5.5); Red Cell Distribution Width 17.3 % (9.3-17.3); White Blood Count 5.6 T/CUMM (4-12)
[2018-10-05 06:35] LABS: Calcium 8.8 MG/DL (8.5-10.1); Potassium 4.5 MMOL/L (3.5-5.1)
[2018-10-05 06:47] LABS: Band Neutrophils 1 % (0-10); Eosinophils 1 % (0-10); Hypochromasia 1+; Lymphocytes 9 % (20-55); Nucleated Red Blood Cells 1 (0-5); Platelet Estimate Adequate; Segmented Neutrophils 80 % (50-85); Total Cells Counted 100
[2018-10-05] MEDS: DEXTROSE 50% 25 GM/50 ML SYRINGE IV PRN (06:51)
[2018-10-05] MEDS: LEVOTHYROXINE 50 MCG TABLET PO SCH (07:11)
[2018-10-05] MEDS: METOPROLOL SUCCINATE XL 25 MG TABLET PO SCH (10:28)
[2018-10-05] MEDS: CAPTOPRIL 6.25 MG TABLET PO SCH ×2 (10:28→20:34)
[2018-10-05] MEDS: CLOPIDOGREL 75 MG TABLET PO SCH (10:28)
[2018-10-05] MEDS: INSULIN LISPRO 100 UNIT/ML SUBCUT SCH ×4 (10:28→21:17)
[2018-10-05] MEDS: ASCORBIC ACID 500 MG TABLET PO SCH ×2 (10:29→20:34)
[2018-10-05] MEDS: glyBURIDE 2.5 MG TABLET PO SCH (10:29)
[2018-10-05] MEDS: FAMOTIDINE 20 MG TABLET PO SCH (10:29)
[2018-10-05] MEDS: APIXABAN 5 MG TABLET PO SCH ×2 (10:29→20:34)
[2018-10-05] MEDS: SPIRONOLACTONE 25 MG TABLET PO SCH (10:30)
[2018-10-05] MEDS: LORATADINE 10 MG TABLET PO SCH (10:30)
[2018-10-05] MEDS: ASPIRIN EC 81 MG TABLET PO SCH (10:30)
[2018-10-05] MEDS: FUROSEMIDE 40 MG/4 ML VIAL IV SCH ×2 (10:30→17:10)
[2018-10-05] MEDS: POTASSIUM CHLORIDE 20 MEQ TABLET PO SCH ×2 (10:30→20:34)
[2018-10-05] MEDS: MAGNESIUM OXIDE 400 MG TABLET PO SCH ×2 (10:34→20:35)
[2018-10-05] MEDS: DICYCLOMINE 10 MG CAPSULE PO SCH ×3 (12:45→17:11)
[2018-10-05] MEDS ORDERED: DICYCLOMINE 10 MG CAPSULE PO SCH (13:00)
[2018-10-05] MEDS: LEVOFLOXACIN INJ 500 MG in PREMIX 1 EACH IV SCH (18:31)
[2018-10-05] MEDS: ATORVASTATIN 20 MG TABLET PO SCH (20:34)
[2018-10-06 04:42] LABS: Basophils % 0.2 % (0.0-0.8); Eosinophils # 0.1 10*3/uL (0.0-0.87); Eosinophils % 1.5 % (0.00-10.9); Hematocrit 42.8 VOL% (42.0-52.0); Hemoglobin 14.3 GM/DL (14.0-18.0); Immature Granulocytes % 0.3 %; Immature Granulocytes Absolute 0.02 #; Lymphocytes % 16.9 % (21.2-54.2); Mean Corpuscular HGB Conc 33.4 GM/DL (32-36); Mean Corpuscular Hemoglobin 28 PG (27-34); Mean Corpuscular Volume 84.9 FL (87-102); Mean Platelet Volume 11.2 FL (9.6-12.0); Monocytes # 1.1 10*3/uL (0.11-0.8); Monocytes % 18.2 % (1.7-12.7); Neutrophils # 3.7 10*3/uL (1.4-7.4); Neutrophils % 62.9 % (38.7-73.9); Platelet Count 174 T/CUMM (130-400); Red Blood Count 5.04 MC/CUMM (3.8-5.5); Red Cell Distribution Width 17.3 % (9.3-17.3); White Blood Count 5.9 T/CUMM (4-12)
[2018-10-06 05:12] LABS: Calcium 8.3 MG/DL (8.5-10.1); Osmolality,Calculated 270.2 MOS/KG (273-304); Potassium 4.3 MMOL/L (3.5-5.1)
[2018-10-06] MEDS: LEVOTHYROXINE 50 MCG TABLET PO SCH (05:36)
[2018-10-06 05:52] LABS: Eosinophils 1 % (0-10); Lymphocytes 17 % (20-55); Segmented Neutrophils 69 % (50-85); Total Cells Counted 100
[2018-10-06 05:53] LABS: Hypochromasia 1+; Macrocytosis 1+; Target Cells Few
[2018-10-06 05:54] LABS: Platelet Estimate Adequate
[2018-10-06] MEDS: DEXTROSE 50% 25 GM/50 ML SYRINGE IV PRN (07:22)
[2018-10-06] MEDS ORDERED: MAGNESIUM SULF RIDER 2 GM in PREMIX 1 EACH IV PRN (08:46)
[2018-10-06] MEDS ORDERED: MAGNESIUM SULF RIDER 4 GM in PREMIX 1 EACH IV PRN (08:46)
[2018-10-06] MEDS: DICYCLOMINE 10 MG CAPSULE PO SCH ×3 (08:50→16:31)
[2018-10-06] MEDS: glyBURIDE 2.5 MG TABLET PO SCH (08:52)
[2018-10-06] MEDS: INSULIN LISPRO 100 UNIT/ML SUBCUT SCH (08:52)
[2018-10-06] MEDS: FUROSEMIDE 40 MG/4 ML VIAL IV SCH ×2 (08:52→16:25)
[2018-10-06] MEDS: ASPIRIN EC 81 MG TABLET PO SCH (10:43)
[2018-10-06] MEDS: LORATADINE 10 MG TABLET PO SCH (10:43)
[2018-10-06] MEDS: MAGNESIUM OXIDE 400 MG TABLET PO SCH ×2 (10:44→20:51)
[2018-10-06] MEDS: POTASSIUM CHLORIDE 20 MEQ TABLET PO SCH ×2 (10:44→20:51)
[2018-10-06] MEDS: APIXABAN 5 MG TABLET PO SCH ×2 (10:44→20:51)
[2018-10-06] MEDS: FAMOTIDINE 20 MG TABLET PO SCH (10:47)
[2018-10-06] MEDS: ASCORBIC ACID 500 MG TABLET PO SCH ×2 (10:47→20:51)
[2018-10-06] MEDS: METOPROLOL SUCCINATE XL 25 MG TABLET PO SCH (10:47)
[2018-10-06] MEDS: CLOPIDOGREL 75 MG TABLET PO SCH (11:05)
[2018-10-06] MEDS: LEVOFLOXACIN INJ 500 MG in PREMIX 1 EACH IV SCH (18:15)
[2018-10-07 02:09] LABS: Basophils % 0.5 % (0.0-0.8); Eosinophils # 0.1 10*3/uL (0.0-0.87); Eosinophils % 2.3 % (0.00-10.9); Hematocrit 43.3 VOL% (42.0-52.0); Hemoglobin 14.1 GM/DL (14.0-18.0); Immature Granulocytes % 0.3 %; Immature Granulocytes Absolute 0.02 #; Lymphocytes # 1.1 10*3/uL (1.4-4.0); Lymphocytes % 17.6 % (21.2-54.2); Mean Corpuscular HGB Conc 32.6 GM/DL (32-36); Mean Corpuscular Hemoglobin 28 PG (27-34); Mean Corpuscular Volume 86.8 FL (87-102); Mean Platelet Volume 10.5 FL (9.6-12.0); Monocytes # 1.1 10*3/uL (0.11-0.8); Monocytes % 18.5 % (1.7-12.7); NRBC # 0.03 10*3/uL; Neutrophils # 3.7 10*3/uL (1.4-7.4); Neutrophils % 60.8 % (38.7-73.9); Platelet Count 164 T/CUMM (130-400); Red Blood Count 4.99 MC/CUMM (3.8-5.5); Red Cell Distribution Width 17.6 % (9.3-17.3); White Blood Count 6.1 T/CUMM (4-12)
[2018-10-07 02:12] LABS: Potassium 4.3 MMOL/L (3.5-5.1)
[2018-10-07 04:01] LABS: Eosinophils 5 % (0-10); Lymphocytes 18 % (20-55); Metamyelocytes 1 %; Platelet Estimate Adequate; Segmented Neutrophils 72 % (50-85); Total Cells Counted 100
[2018-10-07 04:02] LABS: Polychromasia Few
[2018-10-07] MEDS: LEVOTHYROXINE 50 MCG TABLET PO SCH (07:25)
[2018-10-07] MEDS: ASPIRIN EC 81 MG TABLET PO SCH (08:24)
[2018-10-07] MEDS: APIXABAN 5 MG TABLET PO SCH ×2 (08:25→21:51)
[2018-10-07] MEDS: ASCORBIC ACID 500 MG TABLET PO SCH ×2 (08:25→21:49)
[2018-10-07] MEDS: POTASSIUM CHLORIDE 20 MEQ TABLET PO SCH ×2 (08:26→21:50)
[2018-10-07] MEDS: METOPROLOL SUCCINATE XL 25 MG TABLET PO SCH (08:26)
[2018-10-07] MEDS: MAGNESIUM OXIDE 400 MG TABLET PO SCH ×2 (08:26→21:50)
[2018-10-07] MEDS: FAMOTIDINE 20 MG TABLET PO SCH (08:26)
[2018-10-07] MEDS: LORATADINE 10 MG TABLET PO SCH (08:26)
[2018-10-07] MEDS: DICYCLOMINE 10 MG CAPSULE PO SCH ×3 (08:26→17:27)
[2018-10-07] MEDS: FUROSEMIDE 40 MG/4 ML VIAL IV SCH (08:30)
[2018-10-07] MEDS: LISINOPRIL 2.5 MG TABLET PO SCH (14:00)
[2018-10-08 06:23] LABS: Basophils % 0.7 % (0.0-0.8); Eosinophils # 0.1 10*3/uL (0.0-0.87); Eosinophils % 1.6 % (0.00-10.9); Hematocrit 46.2 VOL% (42.0-52.0); Hemoglobin 15.6 GM/DL (14.0-18.0); Immature Granulocytes % 0.5 %; Immature Granulocytes Absolute 0.03 #; Mean Corpuscular HGB Conc 33.8 GM/DL (32-36); Mean Corpuscular Hemoglobin 29 PG (27-34); Mean Corpuscular Volume 84.6 FL (87-102); Mean Platelet Volume 10.6 FL (9.6-12.0); Monocytes # 0.9 10*3/uL (0.11-0.8); Monocytes % 15.1 % (1.7-12.7); NRBC # 0.02 10*3/uL; Neutrophils # 3.7 10*3/uL (1.4-7.4); Neutrophils % 64.1 % (38.7-73.9); Platelet Count 157 T/CUMM (130-400); Red Blood Count 5.46 MC/CUMM (3.8-5.5); Red Cell Distribution Width 18.8 % (9.3-17.3); White Blood Count 5.8 T/CUMM (4-12)
[2018-10-08] MEDS: LEVOTHYROXINE 50 MCG TABLET PO SCH (06:30)
[2018-10-08 06:45] LABS: Calcium 8.9 MG/DL (8.5-10.1); Osmolality,Calculated 270.4 MOS/KG (273-304); Potassium 4.9 MMOL/L (3.5-5.1)
[2018-10-08] MEDS: APIXABAN 5 MG TABLET PO SCH ×2 (09:04→21:23)
[2018-10-08] MEDS: ASPIRIN EC 81 MG TABLET PO SCH (09:04)
[2018-10-08] MEDS: LORATADINE 10 MG TABLET PO SCH (09:04)
[2018-10-08] MEDS: ASCORBIC ACID 500 MG TABLET PO SCH ×2 (09:04→21:23)
[2018-10-08] MEDS: METOPROLOL SUCCINATE XL 25 MG TABLET PO SCH (09:04)
[2018-10-08] MEDS: DICYCLOMINE 10 MG CAPSULE PO SCH ×3 (09:04→16:20)
[2018-10-08] MEDS: POTASSIUM CHLORIDE 20 MEQ TABLET PO SCH ×2 (09:05→21:23)
[2018-10-08] MEDS: GLIMEPIRIDE 2 MG TABLET PO SCH (09:05)
[2018-10-08] MEDS: FAMOTIDINE 20 MG TABLET PO SCH (09:05)
[2018-10-08] MEDS: FUROSEMIDE 40 MG TABLET PO SCH (09:05)
[2018-10-08] MEDS: MAGNESIUM OXIDE 400 MG TABLET PO SCH ×2 (09:05→21:23)
[2018-10-08] MEDS: LISINOPRIL 2.5 MG TABLET PO SCH (09:11)
[2018-10-09] MEDS: LEVOTHYROXINE 50 MCG TABLET PO SCH (06:45)
[2018-10-09] MEDS: METOPROLOL SUCCINATE XL 25 MG TABLET PO SCH (08:27)
[2018-10-09] MEDS: LISINOPRIL 2.5 MG TABLET PO SCH (08:28)
[2018-10-09] MEDS: FAMOTIDINE 20 MG TABLET PO SCH (08:28)
[2018-10-09] MEDS: GLIMEPIRIDE 2 MG TABLET PO SCH (08:28)
[2018-10-09] MEDS: APIXABAN 5 MG TABLET PO SCH ×2 (08:28→20:40)
[2018-10-09] MEDS: POTASSIUM CHLORIDE 20 MEQ TABLET PO SCH ×2 (08:28→20:39)
[2018-10-09] MEDS: MAGNESIUM OXIDE 400 MG TABLET PO SCH ×2 (08:29→20:40)
[2018-10-09] MEDS: LORATADINE 10 MG TABLET PO SCH (08:29)
[2018-10-09] MEDS: FUROSEMIDE 40 MG TABLET PO SCH (08:29)
[2018-10-09] MEDS: DICYCLOMINE 10 MG CAPSULE PO SCH ×3 (08:29→16:39)
[2018-10-09] MEDS: ASCORBIC ACID 500 MG TABLET PO SCH ×2 (08:29→20:40)
[2018-10-09] MEDS: ASPIRIN EC 81 MG TABLET PO SCH (08:29)
[2018-10-10] MEDS: LEVOTHYROXINE 50 MCG TABLET PO SCH (06:40)
[2018-10-10 07:58] VITALS: BP 84/52
[2018-10-10] MEDS: METOPROLOL SUCCINATE XL 25 MG TABLET PO SCH (09:00)
[2018-10-10] MEDS: LISINOPRIL 2.5 MG TABLET PO SCH (09:00)
[2018-10-10] MEDS: DICYCLOMINE 10 MG CAPSULE PO SCH ×3 (09:06→11:57)
[2018-10-10] MEDS: APIXABAN 5 MG TABLET PO SCH ×2 (09:07→09:12)
[2018-10-10] MEDS: ASCORBIC ACID 500 MG TABLET PO SCH ×2 (09:07→09:14)
[2018-10-10] MEDS: ASPIRIN EC 81 MG TABLET PO SCH (09:07)
[2018-10-10] MEDS: POTASSIUM CHLORIDE 20 MEQ TABLET PO SCH ×2 (09:07→09:13)
[2018-10-10] MEDS: GLIMEPIRIDE 2 MG TABLET PO SCH (09:07)
[2018-10-10] MEDS: MAGNESIUM OXIDE 400 MG TABLET PO SCH ×2 (09:07→09:13)
[2018-10-10] MEDS: LORATADINE 10 MG TABLET PO SCH (09:07)
[2018-10-10] MEDS: FUROSEMIDE 40 MG TABLET PO SCH (09:08)
[2018-10-10] MEDS: FAMOTIDINE 20 MG TABLET PO SCH (09:08)
[2018-10-12 00:07] LABS: CDT Result Negative (Negative); CDT Specimen Source STOOL
== END 2018-10-10 11:45 | disposition home health service (06) | DRG 444 ==
LOC: EDBD → EDUNIT# → N.ED 15:46 → N.EDINP 18:24 → SUATTDRO 18:24 → N.TELES 20:21
PROVIDERS: ADMIT Internal Medicine; ATTEND Internal Medicine

== ENCOUNTER 2018-10-20 17:01 | Inpatient (IN) ==
[2018-10-20 17:56] LABS: Basophils % 0.6 % (0.0-0.8); Eosinophils # 0.1 10*3/uL (0.0-0.87); Eosinophils % 1.2 % (0.00-10.9); Hematocrit 49.1 VOL% (42.0-52.0); Hemoglobin 15.7 GM/DL (14.0-18.0); Immature Granulocytes % 0.3 %; Immature Granulocytes Absolute 0.02 #; Lymphocytes % 13.8 % (21.2-54.2); Mean Corpuscular Volume 91.1 FL (87-102); Mean Platelet Volume 10.1 FL (9.6-12.0); Monocytes % 12.6 % (1.7-12.7); NRBC # 0.04 10*3/uL; Neutrophils % 71.5 % (38.7-73.9); Platelet Count 204 T/CUMM (130-400); Red Blood Count 5.39 MC/CUMM (3.8-5.5); Red Cell Distribution Width 20.5 % (9.3-17.3); White Blood Count 7.2 T/CUMM (4-12)
[2018-10-20 18:16] LABS: Alanine Aminotransferase 31 U/L (16-61); Albumin 3.1 G/DL (3.4-5.0); Alkaline Phosphatase 196 U/L (45-117); Aspartate Amino Transferase 39 U/L (0-37); Blood Urea Nitrogen 31 MG/DL (7-18); Calcium 9.2 MG/DL (8.5-10.1); Glucose 118 MG/DL (74-106); Total Protein 8.3 G/DL (6.4-8.3)
[2018-10-20] MEDS ORDERED: PIPERACILLIN/TAZOBACTAM 3,375 MG in SODIUM CHLORIDE 0.9% 100 ML IV STA (19:23)
[2018-10-20] MEDS ORDERED: LACTULOSE 20 GM/30 ML UDCUP PO PRN (20:15)
[2018-10-20] MEDS ORDERED: DOCUSATE SODIUM 100 MG CAPSULE PO PRN (20:15)
[2018-10-20] MEDS ORDERED: ACETAMINOPHEN 325 MG TABLET PO PRN (20:15)
[2018-10-20] MEDS ORDERED: ONDANSETRON 4 MG/2 ML VIAL IV PRN (20:15)
[2018-10-20] MEDS ORDERED: DEXTROSE 50% 25 GM/50 ML SYRINGE IV PRN (20:45)
[2018-10-20] MEDS ORDERED: GLUCAGON 1 MG VIAL IM PRN (20:45)
[2018-10-20] MEDS: INSULIN REGULAR 100 UNIT/ML SUBCUT SCH (21:59)
[2018-10-20] MEDS: MAGNESIUM OXIDE 400 MG TABLET PO SCH (22:37)
[2018-10-20] MEDS: ASCORBIC ACID 500 MG TABLET PO SCH (22:37)
[2018-10-20] MEDS: APIXABAN 5 MG TABLET PO SCH (22:37)
[2018-10-20] MEDS: FUROSEMIDE 40 MG/4 ML VIAL IV SCH (22:37)
[2018-10-20] MEDS: ATORVASTATIN 20 MG TABLET PO SCH (22:38)
[2018-10-21] MEDS: PIPERACILLIN/TAZOBACTAM 3,375 MG in SODIUM CHLORIDE 0.9% 100 ML IV SCH ×3 (03:31→21:04)
[2018-10-21 04:39] LABS: Basophils % 0.5 % (0.0-0.8); Eosinophils # 0.1 10*3/uL (0.0-0.87); Eosinophils % 2.2 % (0.00-10.9); Hematocrit 42.3 VOL% (42.0-52.0); Hemoglobin 14.1 GM/DL (14.0-18.0); Immature Granulocytes % 0.4 %; Immature Granulocytes Absolute 0.02 #; Lymphocytes % 18.3 % (21.2-54.2); Mean Corpuscular HGB Conc 33.3 GM/DL (32-36); Mean Corpuscular Volume 87.6 FL (87-102); Mean Platelet Volume 10.7 FL (9.6-12.0); Monocytes % 10.6 % (1.7-12.7); NRBC # 0.04 10*3/uL; Platelet Count 208 T/CUMM (130-400); Red Blood Count 4.83 MC/CUMM (3.8-5.5); Red Cell Distribution Width 19.6 % (9.3-17.3); White Blood Count 5.6 T/CUMM (4-12)
[2018-10-21 04:58] LABS: Calcium 8.5 MG/DL (8.5-10.1); Osmolality,Calculated 283.8 MOS/KG (273-304); Thyroid Stimulating Hormone 4.93 uIU/ml (0.358-3.74)
[2018-10-21] MEDS: LEVOTHYROXINE 50 MCG TABLET PO SCH (06:13)
[2018-10-21] MEDS ORDERED: glyBURIDE 2.5 MG TABLET PO SCH (08:00)
[2018-10-21] MEDS: INSULIN REGULAR 100 UNIT/ML SUBCUT SCH ×4 (08:28→21:11)
[2018-10-21] MEDS: APIXABAN 5 MG TABLET PO SCH (09:14)
[2018-10-21] MEDS: FAMOTIDINE 20 MG TABLET PO SCH (09:14)
[2018-10-21] MEDS: ASPIRIN EC 81 MG TABLET PO SCH (09:14)
[2018-10-21] MEDS: METOPROLOL SUCCINATE XL 25 MG TABLET PO SCH (09:14)
[2018-10-21] MEDS: LORATADINE 10 MG TABLET PO SCH (09:14)
[2018-10-21] MEDS: FUROSEMIDE 40 MG/4 ML VIAL IV SCH ×2 (09:14→21:05)
[2018-10-21] MEDS: MAGNESIUM OXIDE 400 MG TABLET PO SCH ×2 (09:14→21:05)
[2018-10-21] MEDS: ASCORBIC ACID 500 MG TABLET PO SCH ×2 (09:14→21:05)
[2018-10-21] MEDS: ENOXAPARIN 80 MG/0.8 ML SYRINGE SUBCUT SCH (21:05)
[2018-10-21] MEDS: ATORVASTATIN 20 MG TABLET PO SCH (21:05)
[2018-10-22 05:02] LABS: Basophils # 0.1 10*3/uL (0.0-0.2); Basophils % 1.1 % (0.0-0.8); Eosinophils # 0.3 10*3/uL (0.0-0.87); Eosinophils % 5.9 % (0.00-10.9); Hematocrit 43.8 VOL% (42.0-52.0); Hemoglobin 14.7 GM/DL (14.0-18.0); Immature Granulocytes % 0.2 %; Immature Granulocytes Absolute 0.01 #; Lymphocytes % 21.6 % (21.2-54.2); Mean Corpuscular HGB Conc 33.6 GM/DL (32-36); Mean Corpuscular Volume 86.4 FL (87-102); Mean Platelet Volume 10.6 FL (9.6-12.0); Monocytes % 12.3 % (1.7-12.7); NRBC # 0.03 10*3/uL; Neutrophils % 58.9 % (38.7-73.9); Platelet Count 206 T/CUMM (130-400); Red Blood Count 5.07 MC/CUMM (3.8-5.5); Red Cell Distribution Width 19.1 % (9.3-17.3); White Blood Count 4.5 T/CUMM (4-12)
[2018-10-22 05:36] LABS: Calcium 8.4 MG/DL (8.5-10.1); Osmolality,Calculated 280.8 MOS/KG (273-304)
[2018-10-22] MEDS: PIPERACILLIN/TAZOBACTAM 3,375 MG in SODIUM CHLORIDE 0.9% 100 ML IV SCH ×3 (05:52→21:44)
[2018-10-22] MEDS: LEVOTHYROXINE 50 MCG TABLET PO SCH (05:53)
[2018-10-22 06:45] LABS: Apearance,Urine CLOUDY (Clear); Bilirubin,Urine Negative (Negative); Blood, Urine Large mg/dL (Negative); Glucose,Urine (UA) Negative (Negative); Ketones,Urine Negative (Negative); Nitrite,Urine Negative (Negative); Protein,Urine 30 MG/DL; RBC,Urine 2734 /HPF (0-4); Urine Color Red (Yellow); Urine Specific Gravity 1.011 (1.001-1.035); Urine Urobilinogen < 2.0 EU/DL (0.2-1.0)
[2018-10-22] MEDS: INSULIN REGULAR 100 UNIT/ML SUBCUT SCH ×4 (08:16→21:40)
[2018-10-22] MEDS: METOPROLOL SUCCINATE XL 25 MG TABLET PO SCH (08:58)
[2018-10-22] MEDS: LORATADINE 10 MG TABLET PO SCH (08:58)
[2018-10-22] MEDS: ASPIRIN EC 81 MG TABLET PO SCH (08:58)
[2018-10-22] MEDS: ASCORBIC ACID 500 MG TABLET PO SCH ×2 (08:58→21:44)
[2018-10-22] MEDS: FAMOTIDINE 20 MG TABLET PO SCH (08:58)
[2018-10-22] MEDS: MAGNESIUM OXIDE 400 MG TABLET PO SCH ×2 (08:58→21:44)
[2018-10-22] MEDS: ENOXAPARIN 80 MG/0.8 ML SYRINGE SUBCUT SCH ×2 (08:59→21:44)
[2018-10-22] MEDS: FUROSEMIDE 40 MG/4 ML VIAL IV SCH ×2 (08:59→21:40)
[2018-10-22] MEDS: ATORVASTATIN 20 MG TABLET PO SCH (21:44)
[2018-10-23] MEDS: PIPERACILLIN/TAZOBACTAM 3,375 MG in SODIUM CHLORIDE 0.9% 100 ML IV SCH ×3 (04:54→21:24)
[2018-10-23 06:14] LABS: Basophils # 0.1 10*3/uL (0.0-0.2); Eosinophils # 0.4 10*3/uL (0.0-0.87); Hematocrit 38.2 VOL% (42.0-52.0); Hemoglobin 12.5 GM/DL (14.0-18.0); Immature Granulocytes % 0.4 %; Immature Granulocytes Absolute 0.02 #; Lymphocytes # 0.7 10*3/uL (1.4-4.0); Lymphocytes % 13.6 % (21.2-54.2); Mean Corpuscular HGB Conc 32.7 GM/DL (32-36); Mean Corpuscular Volume 88.2 FL (87-102); Monocytes % 17.8 % (1.7-12.7); Neutrophils % 60.2 % (38.7-73.9); Platelet Count 179 T/CUMM (130-400); Red Blood Count 4.33 MC/CUMM (3.8-5.5)
[2018-10-23] MEDS: LEVOTHYROXINE 50 MCG TABLET PO SCH (06:19)
[2018-10-23 06:35] LABS: Calcium 7.6 MG/DL (8.5-10.1); Osmolality,Calculated 285.1 MOS/KG (273-304)
[2018-10-23 06:38] LABS: Eosinophils 6 % (0-10); Lymphocytes 18 % (20-55); Platelet Estimate Adequate; Segmented Neutrophils 66 % (50-85); Total Cells Counted 100
[2018-10-23 06:39] LABS: Hypochromasia 1+
[2018-10-23] MEDS: INSULIN REGULAR 100 UNIT/ML SUBCUT SCH ×3 (09:33→15:44)
[2018-10-23] MEDS: FAMOTIDINE 20 MG TABLET PO SCH (09:34)
[2018-10-23] MEDS: METOPROLOL SUCCINATE XL 25 MG TABLET PO SCH (09:35)
[2018-10-23] MEDS: ASPIRIN EC 81 MG TABLET PO SCH (09:37)
[2018-10-23] MEDS: MAGNESIUM OXIDE 400 MG TABLET PO SCH ×2 (09:37→21:25)
[2018-10-23] MEDS: ASCORBIC ACID 500 MG TABLET PO SCH ×2 (09:37→21:25)
[2018-10-23] MEDS: FUROSEMIDE 40 MG/4 ML VIAL IV SCH ×2 (09:38→21:26)
[2018-10-23] MEDS: ENOXAPARIN 80 MG/0.8 ML SYRINGE SUBCUT SCH (09:38)
[2018-10-23] MEDS: LORATADINE 10 MG TABLET PO SCH (09:38)
[2018-10-23] MEDS ORDERED: FUROSEMIDE 40 MG/4 ML VIAL IV ONE (11:37)
[2018-10-23] MEDS: POTASSIUM CHLORIDE 20 MEQ TABLET PO PRN ×4 (12:39→18:23)
[2018-10-23] MEDS: ATORVASTATIN 20 MG TABLET PO SCH (21:25)
[2018-10-24 02:44] LABS: Calcium 8.3 MG/DL (8.5-10.1); Osmolality,Calculated 276.7 MOS/KG (273-304)
[2018-10-24] MEDS: INSULIN REGULAR 100 UNIT/ML SUBCUT SCH ×4 (02:45→21:45)
[2018-10-24 02:51] LABS: Basophils % 0.6 % (0.0-0.8); Eosinophils # 0.3 10*3/uL (0.0-0.87); Eosinophils % 5.6 % (0.00-10.9); Hematocrit 46.9 VOL% (42.0-52.0); Hemoglobin 14.7 GM/DL (14.0-18.0); Immature Granulocytes % 0.4 %; Immature Granulocytes Absolute 0.02 #; Lymphocytes # 0.9 10*3/uL (1.4-4.0); Lymphocytes % 18.3 % (21.2-54.2); Mean Corpuscular HGB Conc 31.3 GM/DL (32-36); Mean Corpuscular Volume 90.2 FL (87-102); Monocytes % 14.7 % (1.7-12.7); Neutrophils % 60.4 % (38.7-73.9); Platelet Count 194 T/CUMM (130-400); Red Cell Distribution Width 19.9 % (9.3-17.3); White Blood Count 4.6 T/CUMM (4-12)
[2018-10-24] MEDS: POTASSIUM CHLORIDE 20 MEQ TABLET PO PRN ×5 (02:58→23:37)
[2018-10-24] MEDS: PIPERACILLIN/TAZOBACTAM 3,375 MG in SODIUM CHLORIDE 0.9% 100 ML IV SCH ×3 (04:43→21:44)
[2018-10-24] MEDS: LEVOTHYROXINE 50 MCG TABLET PO SCH (06:47)
[2018-10-24 09:11] LABS: INR 1.5; PT Patient Result 16.1 SECS
[2018-10-24] MEDS: LORATADINE 10 MG TABLET PO SCH (09:11)
[2018-10-24] MEDS: FUROSEMIDE 40 MG/4 ML VIAL IV SCH ×2 (09:11→20:22)
[2018-10-24] MEDS: FAMOTIDINE 20 MG TABLET PO SCH (09:12)
[2018-10-24] MEDS: MAGNESIUM OXIDE 400 MG TABLET PO SCH ×2 (09:12→20:21)
[2018-10-24] MEDS: METOPROLOL SUCCINATE XL 25 MG TABLET PO SCH (09:12)
[2018-10-24] MEDS: ASCORBIC ACID 500 MG TABLET PO SCH ×2 (09:12→20:22)
[2018-10-24] MEDS: ASPIRIN EC 81 MG TABLET PO SCH (09:13)
[2018-10-24] MEDS ORDERED: TISSUE ADHESIVE 1 EACH APPLICATOR TOP ONE (10:39)
[2018-10-24] MEDS ORDERED: ALBUMIN 5% 12.5 GM/250 ML VIAL IV ONE (11:46)
[2018-10-24] MEDS ORDERED: ALBUMIN 5% 12.5 GM in PREMIX 1 EACH IV ONE (11:50)
[2018-10-24] MEDS ORDERED: SODIUM CHLORIDE 0.9% 1,000 ML IV ONE (11:50)
[2018-10-24] MEDS ORDERED: PHENYLEPHRINE DRIP 40 MG/250 ML PREMIX IV ONE (13:25)
[2018-10-24] MEDS ORDERED: DOBUTamine 500 MG/250 ML PREMIX IV ONE (14:31)
[2018-10-24] MEDS: ATORVASTATIN 20 MG TABLET PO SCH (20:22)
[2018-10-24] MEDS: DOBUTamine 500 MG/250 ML PREMIX IV PRN (23:11)
[2018-10-24] MEDS: PHENYLEPHRINE DRIP 40 MG/250 ML PREMIX IV PRN (23:12)
[2018-10-25] MEDS: PHENYLEPHRINE DRIP 40 MG/250 ML PREMIX IV PRN ×2 (00:06→10:53)
[2018-10-25] MEDS: POTASSIUM CHLORIDE 20 MEQ TABLET PO PRN ×7 (01:25→18:38)
[2018-10-25] MEDS: PIPERACILLIN/TAZOBACTAM 3,375 MG in SODIUM CHLORIDE 0.9% 100 ML IV SCH ×3 (05:03→20:46)
[2018-10-25 05:04] LABS: Basophils % 0.5 % (0.0-0.8); Eosinophils # 0.2 10*3/uL (0.0-0.87); Eosinophils % 3.9 % (0.00-10.9); Hematocrit 41.2 VOL% (42.0-52.0); Hemoglobin 13.8 GM/DL (14.0-18.0); Immature Granulocytes % 0.3 %; Immature Granulocytes Absolute 0.02 #; Lymphocytes # 0.9 10*3/uL (1.4-4.0); Lymphocytes % 14.2 % (21.2-54.2); Mean Corpuscular HGB Conc 33.5 GM/DL (32-36); Mean Corpuscular Volume 86.9 FL (87-102); Mean Platelet Volume 10.6 FL (9.6-12.0); Monocytes % 13.6 % (1.7-12.7); Neutrophils % 67.5 % (38.7-73.9); Platelet Count 187 T/CUMM (130-400); Red Blood Count 4.74 MC/CUMM (3.8-5.5); Red Cell Distribution Width 19.3 % (9.3-17.3); White Blood Count 6.1 T/CUMM (4-12)
[2018-10-25 05:08] LABS: Calcium 8.1 MG/DL (8.5-10.1); Osmolality,Calculated 273.1 MOS/KG (273-304)
[2018-10-25] MEDS: LEVOTHYROXINE 50 MCG TABLET PO SCH (06:28)
[2018-10-25] MEDS: INSULIN REGULAR 100 UNIT/ML SUBCUT SCH ×4 (06:55→20:42)
[2018-10-25] MEDS ORDERED: MAGNESIUM SULF RIDER 4 GM in PREMIX 1 EACH IV PRN ×2 (08:05→10:06)
[2018-10-25] MEDS ORDERED: MAGNESIUM SULF RIDER 2 GM in PREMIX 1 EACH IV PRN ×2 (08:05→10:06)
[2018-10-25] MEDS ORDERED: MAGNESIUM SULF RIDER 50 ML IV ONE (08:21)
[2018-10-25] MEDS: ASCORBIC ACID 500 MG TABLET PO SCH ×2 (08:46→20:47)
[2018-10-25] MEDS: LORATADINE 10 MG TABLET PO SCH (08:47)
[2018-10-25] MEDS: FAMOTIDINE 20 MG TABLET PO SCH (08:47)
[2018-10-25] MEDS: ASPIRIN EC 81 MG TABLET PO SCH (08:47)
[2018-10-25] MEDS: MAGNESIUM OXIDE 400 MG TABLET PO SCH ×2 (08:47→20:47)
[2018-10-25] MEDS: FUROSEMIDE 40 MG/4 ML VIAL IV SCH (08:48)
[2018-10-25] MEDS: METOPROLOL SUCCINATE XL 25 MG TABLET PO SCH (09:11)
[2018-10-25] MEDS: DOBUTamine 500 MG/250 ML PREMIX IV PRN (18:31)
[2018-10-25] MEDS: ATORVASTATIN 20 MG TABLET PO SCH (20:47)
[2018-10-26] MEDS: PIPERACILLIN/TAZOBACTAM 3,375 MG in SODIUM CHLORIDE 0.9% 100 ML IV SCH ×3 (03:25→22:21)
[2018-10-26 03:41] LABS: Basophils % 0.5 % (0.0-0.8); Eosinophils # 0.2 10*3/uL (0.0-0.87); Eosinophils % 3.5 % (0.00-10.9); Hematocrit 40.4 VOL% (42.0-52.0); Hemoglobin 13.3 GM/DL (14.0-18.0); Immature Granulocytes % 0.3 %; Immature Granulocytes Absolute 0.02 #; Lymphocytes # 0.8 10*3/uL (1.4-4.0); Lymphocytes % 13.2 % (21.2-54.2); Mean Corpuscular HGB Conc 32.9 GM/DL (32-36); Mean Corpuscular Volume 87.3 FL (87-102); Mean Platelet Volume 10.3 FL (9.6-12.0); Monocytes % 14.9 % (1.7-12.7); Neutrophils % 67.6 % (38.7-73.9); Platelet Count 176 T/CUMM (130-400); Red Blood Count 4.63 MC/CUMM (3.8-5.5); Red Cell Distribution Width 19.4 % (9.3-17.3)
[2018-10-26 04:13] LABS: Calcium 8.2 MG/DL (8.5-10.1)
[2018-10-26] MEDS: PHENYLEPHRINE DRIP 40 MG/250 ML PREMIX IV PRN (05:10)
[2018-10-26] MEDS: LEVOTHYROXINE 50 MCG TABLET PO SCH (06:30)
[2018-10-26] MEDS: INSULIN REGULAR 100 UNIT/ML SUBCUT SCH ×4 (07:39→22:15)
[2018-10-26] MEDS: MAGNESIUM OXIDE 400 MG TABLET PO SCH ×2 (09:29→22:17)
[2018-10-26] MEDS: LORATADINE 10 MG TABLET PO SCH (09:29)
[2018-10-26] MEDS: METOPROLOL SUCCINATE XL 25 MG TABLET PO SCH (09:29)
[2018-10-26] MEDS: ASPIRIN EC 81 MG TABLET PO SCH ×2 (09:29→10:33)
[2018-10-26] MEDS: FAMOTIDINE 20 MG TABLET PO SCH (09:29)
[2018-10-26] MEDS: ASCORBIC ACID 500 MG TABLET PO SCH ×2 (09:29→22:17)
[2018-10-26] MEDS ORDERED: DIGOXIN 0.5 MG/2 ML AMP IV ONE (09:45)
[2018-10-26] MEDS: ENOXAPARIN 100 MG/ML SYRINGE SUBCUT SCH ×2 (10:33→22:20)
[2018-10-26] MEDS ORDERED: SODIUM CHLORIDE 0.9% 125 ML IV ONE (16:46)
[2018-10-26] MEDS: ATORVASTATIN 20 MG TABLET PO SCH (22:16)
[2018-10-27 05:26] LABS: Basophils # 0.1 10*3/uL (0.0-0.2); Basophils % 0.9 % (0.0-0.8); Eosinophils # 0.3 10*3/uL (0.0-0.87); Eosinophils % 4.4 % (0.00-10.9); Hemoglobin 12.9 GM/DL (14.0-18.0); Immature Granulocytes % 0.3 %; Immature Granulocytes Absolute 0.02 #; Lymphocytes # 1.1 10*3/uL (1.4-4.0); Lymphocytes % 17.9 % (21.2-54.2); Mean Corpuscular HGB Conc 33.1 GM/DL (32-36); Mean Corpuscular Volume 87.4 FL (87-102); Mean Platelet Volume 10.7 FL (9.6-12.0); Monocytes % 14.7 % (1.7-12.7); Neutrophils % 61.8 % (38.7-73.9); Platelet Count 174 T/CUMM (130-400); Red Blood Count 4.46 MC/CUMM (3.8-5.5); Red Cell Distribution Width 19.9 % (9.3-17.3); White Blood Count 5.9 T/CUMM (4-12)
[2018-10-27] MEDS: DOBUTamine 500 MG/250 ML PREMIX IV PRN ×2 (05:38→07:50)
[2018-10-27 05:39] LABS: Calcium 8.4 MG/DL (8.5-10.1); Osmolality,Calculated 270.1 MOS/KG (273-304)
[2018-10-27] MEDS: LEVOTHYROXINE 50 MCG TABLET PO SCH (05:39)
[2018-10-27] MEDS: PIPERACILLIN/TAZOBACTAM 3,375 MG in SODIUM CHLORIDE 0.9% 100 ML IV SCH ×2 (06:13→14:51)
[2018-10-27] MEDS: INSULIN REGULAR 100 UNIT/ML SUBCUT SCH ×4 (07:36→22:00)
[2018-10-27] MEDS: FAMOTIDINE 20 MG TABLET PO SCH (08:34)
[2018-10-27] MEDS: LORATADINE 10 MG TABLET PO SCH (08:34)
[2018-10-27] MEDS: ASPIRIN EC 81 MG TABLET PO SCH (08:34)
[2018-10-27] MEDS: MAGNESIUM OXIDE 400 MG TABLET PO SCH ×2 (08:34→21:58)
[2018-10-27] MEDS: ASCORBIC ACID 500 MG TABLET PO SCH ×2 (08:34→21:58)
[2018-10-27] MEDS: PHENYLEPHRINE DRIP 40 MG/250 ML PREMIX IV PRN (11:17)
[2018-10-27] MEDS: ENOXAPARIN 100 MG/ML SYRINGE SUBCUT SCH ×2 (11:57→21:58)
[2018-10-27] MEDS: ATORVASTATIN 20 MG TABLET PO SCH (21:58)
[2018-10-27] MEDS: traZODone 50 MG TABLET PO PRN (21:58)
[2018-10-28] MEDS: PIPERACILLIN/TAZOBACTAM 3,375 MG in SODIUM CHLORIDE 0.9% 100 ML IV SCH ×3 (02:03→14:40)
[2018-10-28 03:20] LABS: Basophils # 0.1 10*3/uL (0.0-0.2); Eosinophils # 0.3 10*3/uL (0.0-0.87); Eosinophils % 4.2 % (0.00-10.9); Hematocrit 39.1 VOL% (42.0-52.0); Hemoglobin 12.8 GM/DL (14.0-18.0); Immature Granulocytes % 0.5 %; Immature Granulocytes Absolute 0.03 #; Lymphocytes # 1.1 10*3/uL (1.4-4.0); Mean Corpuscular HGB Conc 32.7 GM/DL (32-36); Mean Corpuscular Volume 87.7 FL (87-102); Neutrophils % 63.3 % (38.7-73.9); Platelet Count 160 T/CUMM (130-400); Red Blood Count 4.46 MC/CUMM (3.8-5.5); Red Cell Distribution Width 19.4 % (9.3-17.3); White Blood Count 6.2 T/CUMM (4-12)
[2018-10-28] MEDS: LEVOTHYROXINE 50 MCG TABLET PO SCH (06:20)
[2018-10-28 06:40] LABS: Osmolality,Calculated 273.8 MOS/KG (273-304)
[2018-10-28] MEDS: INSULIN REGULAR 100 UNIT/ML SUBCUT SCH ×4 (07:33→20:54)
[2018-10-28] MEDS: FAMOTIDINE 20 MG TABLET PO SCH ×2 (07:56→08:02)
[2018-10-28] MEDS: ASCORBIC ACID 500 MG TABLET PO SCH ×3 (07:57→21:05)
[2018-10-28] MEDS: LORATADINE 10 MG TABLET PO SCH ×2 (07:57→08:02)
[2018-10-28] MEDS: MAGNESIUM OXIDE 400 MG TABLET PO SCH ×3 (07:58→21:05)
[2018-10-28] MEDS: ASPIRIN EC 81 MG TABLET PO SCH ×2 (07:58→08:02)
[2018-10-28] MEDS: ENOXAPARIN 100 MG/ML SYRINGE SUBCUT SCH ×2 (10:29→21:05)
[2018-10-28] MEDS: ATORVASTATIN 20 MG TABLET PO SCH (21:05)
[2018-10-28] MEDS: traZODone 50 MG TABLET PO PRN (21:05)
[2018-10-28] MEDS ORDERED: MORPHINE 4 MG/1 ML VIAL IV ONE (23:09)
[2018-10-28] MEDS ORDERED: NITROGLYCERIN SL 0.4 MG TABLET SL ONE (23:12)
[2018-10-28] MEDS ORDERED: MORPHINE 4 MG/1 ML VIAL ONE (23:12)
[2018-10-28] MEDS ORDERED: ASPIRIN CHEW 81 MG TABLET PO ONE (23:13)
[2018-10-29] MEDS: PIPERACILLIN/TAZOBACTAM 3,375 MG in SODIUM CHLORIDE 0.9% 100 ML IV SCH ×4 (00:08→22:45)
[2018-10-29 05:10] LABS: Basophils % 0.6 % (0.0-0.8); Eosinophils # 0.4 10*3/uL (0.0-0.87); Eosinophils % 6.1 % (0.00-10.9); Hematocrit 36.4 VOL% (42.0-52.0); Immature Granulocytes % 0.3 %; Immature Granulocytes Absolute 0.02 #; Lymphocytes # 1.3 10*3/uL (1.4-4.0); Lymphocytes % 19.2 % (21.2-54.2); Mean Corpuscular Volume 87.7 FL (87-102); Mean Platelet Volume 10.4 FL (9.6-12.0); Monocytes % 14.8 % (1.7-12.7); Platelet Count 167 T/CUMM (130-400); Red Blood Count 4.15 MC/CUMM (3.8-5.5); Red Cell Distribution Width 19.6 % (9.3-17.3); White Blood Count 6.6 T/CUMM (4-12)
[2018-10-29 05:20] LABS: Osmolality,Calculated 274.8 MOS/KG (273-304)
[2018-10-29] MEDS: LEVOTHYROXINE 50 MCG TABLET PO SCH (06:12)
[2018-10-29] MEDS: FAMOTIDINE 20 MG TABLET PO SCH (08:11)
[2018-10-29] MEDS: ASPIRIN EC 81 MG TABLET PO SCH (08:11)
[2018-10-29] MEDS: LORATADINE 10 MG TABLET PO SCH (08:11)
[2018-10-29] MEDS: POTASSIUM CHLORIDE 20 MEQ TABLET PO PRN (08:11)
[2018-10-29] MEDS: ASCORBIC ACID 500 MG TABLET PO SCH ×2 (08:11→20:46)
[2018-10-29] MEDS: MAGNESIUM OXIDE 400 MG TABLET PO SCH ×2 (08:11→20:46)
[2018-10-29] MEDS: INSULIN REGULAR 100 UNIT/ML SUBCUT SCH ×4 (08:16→20:47)
[2018-10-29] MEDS: ENOXAPARIN 100 MG/ML SYRINGE SUBCUT SCH ×2 (11:09→22:44)
[2018-10-29] MEDS: SPIRONOLACTONE 25 MG TABLET PO SCH (13:50)
[2018-10-29] MEDS: FUROSEMIDE 40 MG/4 ML VIAL IV SCH (14:02)
[2018-10-29] MEDS: traZODone 50 MG TABLET PO PRN (20:46)
[2018-10-29] MEDS: METOPROLOL SUCCINATE XL 25 MG TABLET PO SCH (20:47)
[2018-10-29] MEDS: ATORVASTATIN 20 MG TABLET PO SCH (20:47)
[2018-10-30 05:46] LABS: Basophils # 0.1 10*3/uL (0.0-0.2); Basophils % 0.7 % (0.0-0.8); Eosinophils # 0.4 10*3/uL (0.0-0.87); Eosinophils % 5.1 % (0.00-10.9); Hematocrit 34.3 VOL% (42.0-52.0); Hemoglobin 11.3 GM/DL (14.0-18.0); Immature Granulocytes % 0.4 %; Immature Granulocytes Absolute 0.03 #; Lymphocytes # 1.1 10*3/uL (1.4-4.0); Lymphocytes % 15.4 % (21.2-54.2); Mean Corpuscular HGB Conc 32.9 GM/DL (32-36); Mean Corpuscular Volume 89.3 FL (87-102); Mean Platelet Volume 10.1 FL (9.6-12.0); Monocytes % 14.1 % (1.7-12.7); Neutrophils % 64.3 % (38.7-73.9); Platelet Count 145 T/CUMM (130-400); Red Blood Count 3.84 MC/CUMM (3.8-5.5); Red Cell Distribution Width 19.8 % (9.3-17.3); White Blood Count 6.8 T/CUMM (4-12)
[2018-10-30 06:01] LABS: Calcium 8.2 MG/DL (8.5-10.1); Osmolality,Calculated 277.5 MOS/KG (273-304)
[2018-10-30] MEDS: LEVOTHYROXINE 50 MCG TABLET PO SCH (06:40)
[2018-10-30] MEDS: PIPERACILLIN/TAZOBACTAM 3,375 MG in SODIUM CHLORIDE 0.9% 100 ML IV SCH (06:40)
[2018-10-30] MEDS: INSULIN REGULAR 100 UNIT/ML SUBCUT SCH ×4 (07:27→21:53)
[2018-10-30] MEDS: SPIRONOLACTONE 25 MG TABLET PO SCH (08:08)
[2018-10-30] MEDS: ASCORBIC ACID 500 MG TABLET PO SCH ×2 (08:08→21:50)
[2018-10-30] MEDS: LORATADINE 10 MG TABLET PO SCH (08:08)
[2018-10-30] MEDS: ASPIRIN EC 81 MG TABLET PO SCH (08:08)
[2018-10-30] MEDS: POTASSIUM CHLORIDE 20 MEQ TABLET PO PRN (08:08)
[2018-10-30] MEDS: MAGNESIUM OXIDE 400 MG TABLET PO SCH ×2 (08:08→21:50)
[2018-10-30] MEDS: FAMOTIDINE 20 MG TABLET PO SCH (08:08)
[2018-10-30] MEDS: METOPROLOL SUCCINATE XL 25 MG TABLET PO SCH ×2 (08:43→21:50)
[2018-10-30] MEDS: FUROSEMIDE 40 MG/4 ML VIAL IV SCH (08:43)
[2018-10-30] MEDS: ENOXAPARIN 100 MG/ML SYRINGE SUBCUT SCH (11:55)
[2018-10-30] MEDS: AMOXICILLIN/CLAV 875 MG TABLET PO SCH ×2 (11:57→23:47)
[2018-10-30] MEDS: APIXABAN 5 MG TABLET PO SCH ×2 (11:57→21:51)
[2018-10-30] MEDS: ATORVASTATIN 20 MG TABLET PO SCH (21:50)
[2018-10-31 04:51] LABS: Basophils % 0.6 % (0.0-0.8); Eosinophils # 0.3 10*3/uL (0.0-0.87); Eosinophils % 4.3 % (0.00-10.9); Hematocrit 35.9 VOL% (42.0-52.0); Hemoglobin 11.2 GM/DL (14.0-18.0); Immature Granulocytes % 0.6 %; Immature Granulocytes Absolute 0.04 #; Lymphocytes # 1.4 10*3/uL (1.4-4.0); Lymphocytes % 19.8 % (21.2-54.2); Mean Corpuscular HGB Conc 31.2 GM/DL (32-36); Mean Corpuscular Volume 91.6 FL (87-102); Mean Platelet Volume 10.8 FL (9.6-12.0); Monocytes % 13.2 % (1.7-12.7); Neutrophils % 61.5 % (38.7-73.9); Platelet Count 160 T/CUMM (130-400); Red Blood Count 3.92 MC/CUMM (3.8-5.5); Red Cell Distribution Width 20.1 % (9.3-17.3)
[2018-10-31 05:08] LABS: Calcium 8.2 MG/DL (8.5-10.1); Osmolality,Calculated 283.3 MOS/KG (273-304)
[2018-10-31] MEDS: LEVOTHYROXINE 50 MCG TABLET PO SCH (06:08)
[2018-10-31] MEDS: ASCORBIC ACID 500 MG TABLET PO SCH ×2 (09:17→22:33)
[2018-10-31] MEDS: FUROSEMIDE 40 MG/4 ML VIAL IV SCH (09:17)
[2018-10-31] MEDS: MAGNESIUM OXIDE 400 MG TABLET PO SCH ×2 (09:18→22:33)
[2018-10-31] MEDS: APIXABAN 5 MG TABLET PO SCH (09:18)
[2018-10-31] MEDS: SPIRONOLACTONE 25 MG TABLET PO SCH (09:18)
[2018-10-31] MEDS: FAMOTIDINE 20 MG TABLET PO SCH (09:18)
[2018-10-31] MEDS: LORATADINE 10 MG TABLET PO SCH (09:19)
[2018-10-31] MEDS: ASPIRIN EC 81 MG TABLET PO SCH (09:19)
[2018-10-31] MEDS: METOPROLOL SUCCINATE XL 25 MG TABLET PO SCH ×2 (09:20→22:32)
[2018-10-31] MEDS: INSULIN REGULAR 100 UNIT/ML SUBCUT SCH ×4 (11:18→23:17)
[2018-10-31] MEDS: AMOXICILLIN/CLAV 875 MG TABLET PO SCH (12:49)
[2018-10-31] MEDS ORDERED: ENOXAPARIN 100 MG/ML SYRINGE SUBCUT ONE (21:00)
[2018-10-31] MEDS: ATORVASTATIN 20 MG TABLET PO SCH (22:32)
[2018-10-31] MEDS: ENOXAPARIN 100 MG/ML SYRINGE SUBCUT SCH (22:34)
[2018-11-01] MEDS: AMOXICILLIN/CLAV 875 MG TABLET PO SCH ×2 (00:53→12:05)
[2018-11-01 04:29] LABS: Basophils % 0.6 % (0.0-0.8); Eosinophils # 0.2 10*3/uL (0.0-0.87); Eosinophils % 2.3 % (0.00-10.9); Hematocrit 35.1 VOL% (42.0-52.0); Hemoglobin 11.2 GM/DL (14.0-18.0); Immature Granulocytes % 0.6 %; Immature Granulocytes Absolute 0.04 #; Lymphocytes # 1.2 10*3/uL (1.4-4.0); Lymphocytes % 17.2 % (21.2-54.2); Mean Corpuscular HGB Conc 31.9 GM/DL (32-36); Mean Corpuscular Volume 90.5 FL (87-102); Mean Platelet Volume 10.4 FL (9.6-12.0); Monocytes % 12.8 % (1.7-12.7); Neutrophils % 66.5 % (38.7-73.9); Platelet Count 151 T/CUMM (130-400); Red Blood Count 3.88 MC/CUMM (3.8-5.5); Red Cell Distribution Width 20.6 % (9.3-17.3); White Blood Count 6.9 T/CUMM (4-12)
[2018-11-01 04:42] LABS: INR 1.2; PT Patient Result 13.1 SECS
[2018-11-01 05:03] LABS: Calcium 8.6 MG/DL (8.5-10.1); Osmolality,Calculated 280.4 MOS/KG (273-304)
[2018-11-01] MEDS: LEVOTHYROXINE 50 MCG TABLET PO SCH ×2 (08:06→12:04)
[2018-11-01] MEDS ORDERED: DIAZEPAM 5 MG TABLET PO ONE (09:00)
[2018-11-01] MEDS: METOPROLOL SUCCINATE XL 25 MG TABLET PO SCH ×2 (09:07→21:07)
[2018-11-01] MEDS: ASPIRIN EC 81 MG TABLET PO SCH (09:08)
[2018-11-01] MEDS: MAGNESIUM OXIDE 400 MG TABLET PO SCH ×2 (09:08→21:08)
[2018-11-01] MEDS: LORATADINE 10 MG TABLET PO SCH (09:08)
[2018-11-01] MEDS: ASCORBIC ACID 500 MG TABLET PO SCH ×2 (09:09→21:08)
[2018-11-01] MEDS: FAMOTIDINE 20 MG TABLET PO SCH (09:09)
[2018-11-01] MEDS: SPIRONOLACTONE 25 MG TABLET PO SCH (09:09)
[2018-11-01] MEDS: ENOXAPARIN 100 MG/ML SYRINGE SUBCUT SCH ×2 (09:09→21:08)
[2018-11-01] MEDS: FUROSEMIDE 40 MG/4 ML VIAL IV SCH (09:10)
[2018-11-01] MEDS: INSULIN REGULAR 100 UNIT/ML SUBCUT SCH ×3 (09:19→21:21)
[2018-11-01] MEDS ORDERED: diphenhydrAMINE CAP 25 MG CAPSULE PO ONE (09:30)
[2018-11-01] MEDS: ATORVASTATIN 20 MG TABLET PO SCH (21:08)
[2018-11-02 04:46] LABS: Basophils # 0.1 10*3/uL (0.0-0.2); Basophils % 1.1 % (0.0-0.8); Eosinophils # 0.3 10*3/uL (0.0-0.87); Eosinophils % 3.5 % (0.00-10.9); Hematocrit 36.7 VOL% (42.0-52.0); Hemoglobin 11.2 GM/DL (14.0-18.0); Immature Granulocytes % 0.5 %; Immature Granulocytes Absolute 0.04 #; Lymphocytes # 1.8 10*3/uL (1.4-4.0); Lymphocytes % 23.3 % (21.2-54.2); Mean Corpuscular HGB Conc 30.5 GM/DL (32-36); Mean Corpuscular Volume 94.3 FL (87-102); Mean Platelet Volume 10.7 FL (9.6-12.0); Monocytes % 12.3 % (1.7-12.7); Neutrophils % 59.3 % (38.7-73.9); Platelet Count 168 T/CUMM (130-400); Red Blood Count 3.89 MC/CUMM (3.8-5.5); Red Cell Distribution Width 21.1 % (9.3-17.3); White Blood Count 7.5 T/CUMM (4-12)
[2018-11-02 05:01] LABS: Calcium 8.8 MG/DL (8.5-10.1); Osmolality,Calculated 281.4 MOS/KG (273-304)
[2018-11-02] MEDS: AMOXICILLIN/CLAV 875 MG TABLET PO SCH ×2 (06:45→14:02)
[2018-11-02] MEDS: LEVOTHYROXINE 50 MCG TABLET PO SCH (06:46)
[2018-11-02] MEDS ORDERED: DIAZEPAM 5 MG TABLET PO ONE (08:00)
[2018-11-02] MEDS ORDERED: diphenhydrAMINE CAP 25 MG CAPSULE PO ONE (08:00)
[2018-11-02] MEDS: INSULIN REGULAR 100 UNIT/ML SUBCUT SCH ×5 (08:09→21:20)
[2018-11-02] MEDS ORDERED: LIDOCAINE 1% 20 ML VIAL ONE (09:29)
[2018-11-02] MEDS ORDERED: HEPARIN/NACL 0.9% 2 UNITS/ML 1,000 ML IV ONE (09:29)
[2018-11-02] MEDS ORDERED: SODIUM BICARBONATE 2.4 MEQ/5 ML VIAL ONE (09:29)
[2018-11-02] MEDS: SPIRONOLACTONE 25 MG TABLET PO SCH (09:38)
[2018-11-02] MEDS: METOPROLOL SUCCINATE XL 25 MG TABLET PO SCH ×2 (09:38→21:20)
[2018-11-02] MEDS: MAGNESIUM OXIDE 400 MG TABLET PO SCH ×2 (09:39→21:20)
[2018-11-02] MEDS: ASPIRIN EC 81 MG TABLET PO SCH (09:39)
[2018-11-02] MEDS: LORATADINE 10 MG TABLET PO SCH (09:39)
[2018-11-02] MEDS: FAMOTIDINE 20 MG TABLET PO SCH (09:40)
[2018-11-02] MEDS: ASCORBIC ACID 500 MG TABLET PO SCH ×2 (09:41→21:19)
[2018-11-02] MEDS ORDERED: MIDAZOLAM 2 MG/2 ML VIAL ONE (09:51)
[2018-11-02] MEDS ORDERED: fentaNYL 100 MCG/2 ML VIAL ONE (09:51)
[2018-11-02] MEDS ORDERED: ACETAMINOPHEN/CODEINE 300-30 MG TABLET PO PRN (10:59)
[2018-11-02] MEDS ORDERED: MORPHINE 4 MG/1 ML VIAL IV PRN (10:59)
[2018-11-02] MEDS: FUROSEMIDE 40 MG/4 ML VIAL IV SCH (15:55)
[2018-11-02] MEDS: ATORVASTATIN 20 MG TABLET PO SCH (21:20)
[2018-11-02] MEDS: traZODone 50 MG TABLET PO PRN (21:20)
[2018-11-02] MEDS: APIXABAN 5 MG TABLET PO SCH (21:20)
[2018-11-03] MEDS: AMOXICILLIN/CLAV 875 MG TABLET PO SCH ×2 (00:24→12:49)
[2018-11-03 04:46] LABS: Basophils % 0.4 % (0.0-0.8); Eosinophils # 0.3 10*3/uL (0.0-0.87); Eosinophils % 3.4 % (0.00-10.9); Hematocrit 34.2 VOL% (42.0-52.0); Hemoglobin 10.9 GM/DL (14.0-18.0); Immature Granulocytes % 0.5 %; Immature Granulocytes Absolute 0.04 #; Lymphocytes # 1.1 10*3/uL (1.4-4.0); Lymphocytes % 14.4 % (21.2-54.2); Mean Corpuscular HGB Conc 31.9 GM/DL (32-36); Mean Corpuscular Volume 92.9 FL (87-102); Mean Platelet Volume 10.8 FL (9.6-12.0); Monocytes % 9.3 % (1.7-12.7); NRBC # 0.02 10*3/uL; Platelet Count 156 T/CUMM (130-400); Red Blood Count 3.68 MC/CUMM (3.8-5.5); Red Cell Distribution Width 20.9 % (9.3-17.3); White Blood Count 7.9 T/CUMM (4-12)
[2018-11-03 05:16] LABS: Osmolality,Calculated 282.4 MOS/KG (273-304)
[2018-11-03] MEDS: LEVOTHYROXINE 50 MCG TABLET PO SCH (07:47)
[2018-11-03] MEDS: INSULIN REGULAR 100 UNIT/ML SUBCUT SCH ×4 (09:33→21:36)
[2018-11-03] MEDS: APIXABAN 5 MG TABLET PO SCH ×2 (09:34→21:35)
[2018-11-03] MEDS: ASCORBIC ACID 500 MG TABLET PO SCH ×2 (09:34→21:35)
[2018-11-03] MEDS: METOPROLOL SUCCINATE XL 25 MG TABLET PO SCH ×2 (09:34→21:35)
[2018-11-03] MEDS: FAMOTIDINE 20 MG TABLET PO SCH (09:34)
[2018-11-03] MEDS: MAGNESIUM OXIDE 400 MG TABLET PO SCH ×2 (09:34→21:36)
[2018-11-03] MEDS: ASPIRIN EC 81 MG TABLET PO SCH (09:34)
[2018-11-03] MEDS: SPIRONOLACTONE 25 MG TABLET PO SCH (09:34)
[2018-11-03] MEDS: LORATADINE 10 MG TABLET PO SCH (09:35)
[2018-11-03] MEDS: FUROSEMIDE 40 MG TABLET PO SCH (09:35)
[2018-11-03] MEDS: DIGOXIN 0.25 MG TABLET PO SCH (14:05)
[2018-11-03] MEDS: traZODone 50 MG TABLET PO PRN (21:35)
[2018-11-03] MEDS: ATORVASTATIN 20 MG TABLET PO SCH (21:36)
[2018-11-04] MEDS: AMOXICILLIN/CLAV 875 MG TABLET PO SCH ×2 (00:15→12:15)
[2018-11-04 05:03] LABS: Basophils % 0.6 % (0.0-0.8); Eosinophils # 0.4 10*3/uL (0.0-0.87); Eosinophils % 5.8 % (0.00-10.9); Hematocrit 33.2 VOL% (42.0-52.0); Hemoglobin 10.4 GM/DL (14.0-18.0); Immature Granulocytes % 1.3 %; Immature Granulocytes Absolute 0.09 #; Lymphocytes % 13.5 % (21.2-54.2); Mean Corpuscular HGB Conc 31.3 GM/DL (32-36); Mean Corpuscular Volume 94.3 FL (87-102); Mean Platelet Volume 10.9 FL (9.6-12.0); Neutrophils % 67.8 % (38.7-73.9); Platelet Count 155 T/CUMM (130-400); Red Blood Count 3.52 MC/CUMM (3.8-5.5); Red Cell Distribution Width 21.1 % (9.3-17.3); White Blood Count 7.1 T/CUMM (4-12)
[2018-11-04 05:11] LABS: Calcium 8.9 MG/DL (8.5-10.1); Osmolality,Calculated 283.3 MOS/KG (273-304)
[2018-11-04 05:28] LABS: Albumin 2.3 G/DL (3.4-5.0); Bilirubin,Direct 1.41 MG/DL (0.0-0.20); Bilirubin,Total 2.4 MG/DL (0.2-1.0); Total Protein 6.1 G/DL (6.4-8.3)
[2018-11-04] MEDS: LEVOTHYROXINE 50 MCG TABLET PO SCH (06:15)
[2018-11-04] MEDS: INSULIN REGULAR 100 UNIT/ML SUBCUT SCH ×3 (08:38→17:00)
[2018-11-04] MEDS: APIXABAN 5 MG TABLET PO SCH (09:48)
[2018-11-04] MEDS: ASPIRIN EC 81 MG TABLET PO SCH (09:48)
[2018-11-04] MEDS: FUROSEMIDE 40 MG TABLET PO SCH (09:48)
[2018-11-04] MEDS: FAMOTIDINE 20 MG TABLET PO SCH (09:48)
[2018-11-04] MEDS: SPIRONOLACTONE 25 MG TABLET PO SCH (09:48)
[2018-11-04] MEDS: LORATADINE 10 MG TABLET PO SCH (09:48)
[2018-11-04] MEDS: MAGNESIUM OXIDE 400 MG TABLET PO SCH (09:48)
[2018-11-04] MEDS: ASCORBIC ACID 500 MG TABLET PO SCH (09:49)
[2018-11-04] MEDS: METOPROLOL SUCCINATE XL 25 MG TABLET PO SCH (09:49)
[2018-11-04] MEDS: DIGOXIN 0.25 MG TABLET PO SCH (14:30)
[2018-11-04 16:08] VITALS: BP 90/72
== END 2018-11-04 18:00 | disposition home health service (06) | DRG 286 ==
LOC: EDUNIT# → EDBD → N.ED 17:01 → SUATTDRO 19:42 → N.EDINP 19:42 → N.TELEN 20:29 → N.ICU 10-24 11:42 → N.TELES 10-30 14:02
PROVIDERS: ADMIT Internal Medicine; ATTEND Internal Medicine

== ENCOUNTER 2018-12-02 13:43 | Inpatient (IN) ==
[2018-12-02] MEDS ORDERED: PIPERACILLIN/TAZOBACTAM 3,375 MG in SODIUM CHLORIDE 0.9% 100 ML IV STA (14:29)
[2018-12-02] MEDS ORDERED: SODIUM CHLORIDE 0.9% 500 ML IV STA (14:29)
[2018-12-02 15:00] LABS: INR 1.4; PT Patient Result 15.2 SECS
[2018-12-02 15:04] LABS: Alanine Aminotransferase 12 U/L (16-61); Albumin 2.4 G/DL (3.4-5.0); Alkaline Phosphatase 127 U/L (45-117); Amylase 105 U/L (25-115); Aspartate Amino Transferase 21 U/L (0-37); Blood Urea Nitrogen 19 MG/DL (7-18); Calcium 8.8 MG/DL (8.5-10.1); Glucose 112 MG/DL (74-106); Total Protein 7.3 G/DL (6.4-8.3); Troponin I 0.037 NG/ML (0.00-0.045)
[2018-12-02 15:34] LABS: ABG Base Excess -3.2 MMOL/L (-2.5-2.5); ABG HCO3 20.6 MMOL/L (20-26); ABG Oxygen Saturation 56.6 % (95-100); ABG PCO2 33.7 MM HG (35-48); ABG PH 7.405 (7.35-7.45); ABG TCO2 21.7 MMOL/L (23-27); Pt O2 Delivery Device Room Air
[2018-12-02 15:35] LABS: Basophils % 0.4 % (0.0-0.8); Eosinophils % 0.4 % (0.00-10.9); Hematocrit 42.3 VOL% (42.0-52.0); Immature Granulocytes % 0.6 %; Immature Granulocytes Absolute 0.05 #; Lymphocytes # 0.8 10*3/uL (1.4-4.0); Lymphocytes % 9.8 % (21.2-54.2); Mean Corpuscular HGB Conc 33.1 GM/DL (32-36); Mean Corpuscular Volume 89.4 FL (87-102); Mean Platelet Volume 11.4 FL (9.6-12.0); Monocytes % 12.2 % (1.7-12.7); Neutrophils % 76.6 % (38.7-73.9); Platelet Count 207 T/CUMM (130-400); Red Blood Count 4.73 MC/CUMM (3.8-5.5); Red Cell Distribution Width 17.5 % (9.3-17.3); White Blood Count 7.8 T/CUMM (4-12)
[2018-12-02 15:36] LABS: ABG PO2 34.9 MM HG (80-95)
[2018-12-02] MEDS ORDERED: MAGNESIUM SULF RIDER 2 GM in PREMIX 1 EACH IV STA (15:54)
[2018-12-02] MEDS ORDERED: VANCOMYCIN INJ 1,000 MG in SODIUM CHLORIDE 0.9% 250 ML IV STA (15:59)
[2018-12-02 16:29] LABS: Apearance,Urine CLEAR (Clear); Bilirubin,Urine Negative (Negative); Blood, Urine Negative (Negative); Glucose,Urine (UA) Negative (Negative); Hyaline Casts,Urine 9 /LPF (0-3); Ketones,Urine Negative (Negative); Nitrite,Urine Negative (Negative); Protein,Urine 30 MG/DL; RBC,Urine 3 /HPF (0-4); Urine Color Amber (Yellow); Urine Specific Gravity 1.041 (1.001-1.035); WBC,Urine 7 /HPF (0-6)
[2018-12-02 16:50] LABS: Sedimentation Rate-Westergren 21 MM/HR (0-20)
[2018-12-02] MEDS ORDERED: ACETAMINOPHEN 325 MG TABLET PO PRN (17:22)
[2018-12-02] MEDS ORDERED: ONDANSETRON 4 MG/2 ML VIAL IV PRN (17:22)
[2018-12-02] MEDS ORDERED: traZODone 50 MG TABLET PO PRN (17:48)
[2018-12-02] MEDS ORDERED: DOCUSATE SODIUM 100 MG CAPSULE PO PRN (17:48)
[2018-12-02] MEDS ORDERED: GLUCAGON 1 MG VIAL IM PRN (18:26)
[2018-12-02] MEDS ORDERED: DEXTROSE 50% 25 GM/50 ML VIAL IV PRN (18:26)
[2018-12-02] MEDS ORDERED: VANCOMYCIN INJ 2,000 MG in SODIUM CHLORIDE 0.9% 500 ML IV ONE (18:30)
[2018-12-02] MEDS: POTASSIUM CHLORIDE 20 MEQ TABLET PO SCH (20:34)
[2018-12-02] MEDS: APIXABAN 5 MG TABLET PO SCH (20:34)
[2018-12-02] MEDS: ATORVASTATIN 20 MG TABLET PO SCH (20:34)
[2018-12-02] MEDS: MAGNESIUM OXIDE 400 MG TABLET PO SCH (20:34)
[2018-12-02] MEDS: ASCORBIC ACID 500 MG TABLET PO SCH (20:34)
[2018-12-02] MEDS: PIPERACILLIN/TAZOBACTAM 3,375 MG in SODIUM CHLORIDE 0.9% 100 ML IV SCH (23:35)
[2018-12-02] MEDS: INSULIN REGULAR 100 UNIT/ML SUBCUT SCH (23:36)
[2018-12-03 01:39] LABS: Basophils % 0.3 % (0.0-0.8); Eosinophils % 0.1 % (0.00-10.9); Hematocrit 38.9 VOL% (42.0-52.0); Hemoglobin 12.8 GM/DL (14.0-18.0); Immature Granulocytes % 0.5 %; Immature Granulocytes Absolute 0.06 #; Lymphocytes # 0.6 10*3/uL (1.4-4.0); Lymphocytes % 4.7 % (21.2-54.2); Mean Corpuscular HGB Conc 32.9 GM/DL (32-36); Mean Corpuscular Volume 88.8 FL (87-102); Mean Platelet Volume 10.4 FL (9.6-12.0); Monocytes % 8.8 % (1.7-12.7); Neutrophils % 85.6 % (38.7-73.9); Platelet Count 228 T/CUMM (130-400); Red Blood Count 4.38 MC/CUMM (3.8-5.5); Red Cell Distribution Width 17.2 % (9.3-17.3); White Blood Count 11.7 T/CUMM (4-12)
[2018-12-03 02:01] LABS: Calcium 8.3 MG/DL (8.5-10.1); Osmolality,Calculated 283.7 MOS/KG (273-304)
[2018-12-03 03:54] LABS: Band Neutrophils 2 % (0-10); Lymphocytes 2 % (20-55); Platelet Estimate Normal; Segmented Neutrophils 92 % (50-85); Total Cells Counted 100
[2018-12-03] MEDS: PIPERACILLIN/TAZOBACTAM 3,375 MG in SODIUM CHLORIDE 0.9% 100 ML IV SCH ×3 (04:36→22:14)
[2018-12-03] MEDS: LEVOTHYROXINE 50 MCG TABLET PO SCH (06:14)
[2018-12-03] MEDS ORDERED: FUROSEMIDE 40 MG/4 ML VIAL IV SCH (08:00)
[2018-12-03] MEDS ORDERED: FAMOTIDINE 20 MG TABLET PO SCH (09:00)
[2018-12-03] MEDS: INSULIN REGULAR 100 UNIT/ML SUBCUT SCH ×4 (09:34→22:44)
[2018-12-03] MEDS: MAGNESIUM OXIDE 400 MG TABLET PO SCH ×2 (10:27→22:15)
[2018-12-03] MEDS: ASCORBIC ACID 500 MG TABLET PO SCH ×2 (10:27→22:15)
[2018-12-03] MEDS: ASPIRIN EC 81 MG TABLET PO SCH (10:27)
[2018-12-03] MEDS: POTASSIUM CHLORIDE 20 MEQ TABLET PO SCH ×2 (10:28→22:15)
[2018-12-03] MEDS: SPIRONOLACTONE 25 MG TABLET PO SCH (10:28)
[2018-12-03] MEDS: glyBURIDE 2.5 MG TABLET PO SCH (10:28)
[2018-12-03] MEDS: LORATADINE 10 MG TABLET PO SCH (10:28)
[2018-12-03] MEDS: VANCOMYCIN INJ 1,500 MG in SODIUM CHLORIDE 0.9% 500 ML IV SCH (10:41)
[2018-12-03] MEDS: METOPROLOL SUCCINATE XL 25 MG TABLET PO SCH (10:42)
[2018-12-03] MEDS: PANTOPRAZOLE 40 MG TABLET PO SCH (10:47)
[2018-12-03] MEDS: APIXABAN 5 MG TABLET PO SCH ×2 (11:01→22:13)
[2018-12-03] MEDS: DIGOXIN 0.25 MG TABLET PO SCH (13:36)
[2018-12-03] MEDS: FUROSEMIDE 40 MG/4 ML VIAL IV SCH (22:12)
[2018-12-03] MEDS: ATORVASTATIN 20 MG TABLET PO SCH (22:15)
[2018-12-04] MEDS: VANCOMYCIN INJ 1,500 MG in SODIUM CHLORIDE 0.9% 500 ML IV SCH ×2 (02:40→12:21)
[2018-12-04] MEDS: PIPERACILLIN/TAZOBACTAM 3,375 MG in SODIUM CHLORIDE 0.9% 100 ML IV SCH ×3 (05:49→21:46)
[2018-12-04] MEDS: LEVOTHYROXINE 50 MCG TABLET PO SCH (05:50)
[2018-12-04] MEDS: INSULIN REGULAR 100 UNIT/ML SUBCUT SCH ×4 (10:10→21:53)
[2018-12-04] MEDS: METOPROLOL SUCCINATE XL 25 MG TABLET PO SCH (10:14)
[2018-12-04] MEDS: APIXABAN 5 MG TABLET PO SCH (10:14)
[2018-12-04] MEDS: glyBURIDE 2.5 MG TABLET PO SCH (10:14)
[2018-12-04] MEDS: SPIRONOLACTONE 25 MG TABLET PO SCH (10:14)
[2018-12-04] MEDS: MAGNESIUM OXIDE 400 MG TABLET PO SCH ×2 (10:14→21:52)
[2018-12-04] MEDS: FUROSEMIDE 40 MG/4 ML VIAL IV SCH ×2 (10:14→21:48)
[2018-12-04] MEDS: ASCORBIC ACID 500 MG TABLET PO SCH ×2 (10:14→21:52)
[2018-12-04] MEDS: LORATADINE 10 MG TABLET PO SCH (10:14)
[2018-12-04] MEDS: PANTOPRAZOLE 40 MG TABLET PO SCH (10:15)
[2018-12-04] MEDS: ASPIRIN EC 81 MG TABLET PO SCH (10:15)
[2018-12-04] MEDS: POTASSIUM CHLORIDE 20 MEQ TABLET PO SCH ×2 (10:15→21:52)
[2018-12-04] MEDS ORDERED: SODIUM CHLORIDE 0.65% NASAL SPRAY 45 ML BOTTLE BOTH NARES PRN (13:01)
[2018-12-04] MEDS: DIGOXIN 0.25 MG TABLET PO SCH (13:54)
[2018-12-04] MEDS: ATORVASTATIN 20 MG TABLET PO SCH (21:52)
[2018-12-05] MEDS: VANCOMYCIN INJ 1,500 MG in SODIUM CHLORIDE 0.9% 500 ML IV SCH ×2 (02:43→16:03)
[2018-12-05] MEDS: PIPERACILLIN/TAZOBACTAM 3,375 MG in SODIUM CHLORIDE 0.9% 100 ML IV SCH (05:40)
[2018-12-05] MEDS: LEVOTHYROXINE 50 MCG TABLET PO SCH (06:14)
[2018-12-05] MEDS ORDERED: DEXTROSE 10% 250 ML IV SCH (08:00)
[2018-12-05] MEDS: INSULIN REGULAR 100 UNIT/ML SUBCUT SCH ×4 (09:03→21:20)
[2018-12-05 09:13] LABS: Basophils % 0.6 % (0.0-0.8); Eosinophils # 0.2 10*3/uL (0.0-0.87); Eosinophils % 2.8 % (0.00-10.9); Hematocrit 39.6 VOL% (42.0-52.0); Hemoglobin 12.7 GM/DL (14.0-18.0); Immature Granulocytes % 0.3 %; Immature Granulocytes Absolute 0.02 #; Lymphocytes # 0.6 10*3/uL (1.4-4.0); Lymphocytes % 8.6 % (21.2-54.2); Mean Corpuscular HGB Conc 32.1 GM/DL (32-36); Monocytes % 9.8 % (1.7-12.7); Neutrophils % 77.9 % (38.7-73.9); Platelet Count 202 T/CUMM (130-400); White Blood Count 6.4 T/CUMM (4-12)
[2018-12-05 10:03] LABS: Albumin 1.7 G/DL (3.4-5.0); Bilirubin,Total 2.2 MG/DL (0.2-1.0); Calcium 7.7 MG/DL (8.5-10.1); Osmolality,Calculated 273.8 MOS/KG (273-304); Total Protein 5.5 G/DL (6.4-8.3)
[2018-12-05] MEDS ORDERED: MAGNESIUM SULF RIDER 4 GM in PREMIX 1 EACH IV PRN (11:47)
[2018-12-05] MEDS ORDERED: MAGNESIUM SULF RIDER 2 GM in PREMIX 1 EACH IV PRN (11:47)
[2018-12-05] MEDS: POTASSIUM CHLORIDE RIDER 10 MEQ in PREMIX 1 EACH IV PRN ×4 (12:03→20:42)
[2018-12-05] MEDS: DEXTROSE 10% 250 ML IV PRN (12:32)
[2018-12-05] MEDS: DIGOXIN 0.25 MG TABLET PO SCH (15:40)
[2018-12-05] MEDS: SPIRONOLACTONE 25 MG TABLET PO SCH (15:42)
[2018-12-05] MEDS: ASPIRIN EC 81 MG TABLET PO SCH (15:42)
[2018-12-05] MEDS: MAGNESIUM OXIDE 400 MG TABLET PO SCH ×2 (15:42→20:59)
[2018-12-05] MEDS: ASCORBIC ACID 500 MG TABLET PO SCH ×2 (15:43→20:59)
[2018-12-05] MEDS: POTASSIUM CHLORIDE 20 MEQ TABLET PO SCH ×2 (15:43→20:59)
[2018-12-05] MEDS: METOPROLOL SUCCINATE XL 25 MG TABLET PO SCH (15:43)
[2018-12-05] MEDS: LORATADINE 10 MG TABLET PO SCH (15:43)
[2018-12-05] MEDS: PANTOPRAZOLE 40 MG TABLET PO SCH (15:43)
[2018-12-05] MEDS: glyBURIDE 2.5 MG TABLET PO SCH (15:44)
[2018-12-05] MEDS: FUROSEMIDE 40 MG/4 ML VIAL IV SCH (16:02)
[2018-12-05] MEDS: ATORVASTATIN 20 MG TABLET PO SCH (20:59)
[2018-12-05] MEDS: APIXABAN 5 MG TABLET PO SCH (20:59)
[2018-12-06 04:31] LABS: Basophils # 0.1 10*3/uL (0.0-0.2); Basophils % 0.6 % (0.0-0.8); Eosinophils # 0.2 10*3/uL (0.0-0.87); Eosinophils % 1.9 % (0.00-10.9); Hematocrit 42.3 VOL% (42.0-52.0); Hemoglobin 13.7 GM/DL (14.0-18.0); Immature Granulocytes % 0.4 %; Immature Granulocytes Absolute 0.04 #; Lymphocytes # 0.9 10*3/uL (1.4-4.0); Lymphocytes % 9.6 % (21.2-54.2); Mean Corpuscular HGB Conc 32.4 GM/DL (32-36); Mean Corpuscular Volume 88.9 FL (87-102); Mean Platelet Volume 10.2 FL (9.6-12.0); Monocytes % 10.3 % (1.7-12.7); Neutrophils % 77.2 % (38.7-73.9); Platelet Count 238 T/CUMM (130-400); Red Blood Count 4.76 MC/CUMM (3.8-5.5); White Blood Count 9.4 T/CUMM (4-12)
[2018-12-06 04:49] LABS: Albumin 1.9 G/DL (3.4-5.0); Bilirubin,Total 2.3 MG/DL (0.2-1.0); Calcium 8.1 MG/DL (8.5-10.1); Total Protein 5.8 G/DL (6.4-8.3)
[2018-12-06] MEDS: VANCOMYCIN INJ 1,500 MG in SODIUM CHLORIDE 0.9% 500 ML IV SCH ×2 (04:50→18:06)
[2018-12-06] MEDS: LEVOTHYROXINE 50 MCG TABLET PO SCH (07:10)
[2018-12-06] MEDS: INSULIN REGULAR 100 UNIT/ML SUBCUT SCH ×4 (07:30→21:00)
[2018-12-06] MEDS: ASPIRIN EC 81 MG TABLET PO SCH (08:23)
[2018-12-06] MEDS: POTASSIUM CHLORIDE 20 MEQ TABLET PO SCH ×2 (08:24→20:59)
[2018-12-06] MEDS: FUROSEMIDE 40 MG TABLET PO SCH (08:24)
[2018-12-06] MEDS: PANTOPRAZOLE 40 MG TABLET PO SCH (08:24)
[2018-12-06] MEDS: MAGNESIUM OXIDE 400 MG TABLET PO SCH ×2 (08:24→20:59)
[2018-12-06] MEDS: LORATADINE 10 MG TABLET PO SCH (08:24)
[2018-12-06] MEDS: ASCORBIC ACID 500 MG TABLET PO SCH ×2 (08:24→20:59)
[2018-12-06] MEDS: SPIRONOLACTONE 25 MG TABLET PO SCH (08:24)
[2018-12-06] MEDS: glyBURIDE 2.5 MG TABLET PO SCH (08:24)
[2018-12-06] MEDS: APIXABAN 5 MG TABLET PO SCH ×2 (08:24→20:59)
[2018-12-06] MEDS: METOPROLOL SUCCINATE XL 25 MG TABLET PO SCH (09:41)
[2018-12-06] MEDS: DIGOXIN 0.25 MG TABLET PO SCH (12:15)
[2018-12-06] MEDS: ATORVASTATIN 20 MG TABLET PO SCH (20:59)
[2018-12-07 04:50] LABS: Basophils % 0.3 % (0.0-0.8); Eosinophils # 0.1 10*3/uL (0.0-0.87); Eosinophils % 0.5 % (0.00-10.9); Hematocrit 41.6 VOL% (42.0-52.0); Hemoglobin 13.9 GM/DL (14.0-18.0); Immature Granulocytes % 0.7 %; Immature Granulocytes Absolute 0.08 #; Lymphocytes # 0.9 10*3/uL (1.4-4.0); Mean Corpuscular HGB Conc 33.4 GM/DL (32-36); Mean Corpuscular Volume 88.1 FL (87-102); Mean Platelet Volume 10.2 FL (9.6-12.0); Monocytes % 7.9 % (1.7-12.7); Neutrophils % 83.6 % (38.7-73.9); Platelet Count 261 T/CUMM (130-400); Red Blood Count 4.72 MC/CUMM (3.8-5.5); Red Cell Distribution Width 16.9 % (9.3-17.3); White Blood Count 12.3 T/CUMM (4-12)
[2018-12-07 05:14] LABS: Calcium 8.1 MG/DL (8.5-10.1); Osmolality,Calculated 273.8 MOS/KG (273-304)
[2018-12-07] MEDS: LEVOTHYROXINE 50 MCG TABLET PO SCH (06:06)
[2018-12-07] MEDS: INSULIN REGULAR 100 UNIT/ML SUBCUT SCH ×2 (07:34→11:47)
[2018-12-07] MEDS: APIXABAN 5 MG TABLET PO SCH (08:55)
[2018-12-07] MEDS: ASCORBIC ACID 500 MG TABLET PO SCH (08:56)
[2018-12-07] MEDS: POTASSIUM CHLORIDE 20 MEQ TABLET PO SCH (08:56)
[2018-12-07] MEDS: METOPROLOL SUCCINATE XL 25 MG TABLET PO SCH (08:56)
[2018-12-07] MEDS: MAGNESIUM OXIDE 400 MG TABLET PO SCH (08:56)
[2018-12-07] MEDS: PANTOPRAZOLE 40 MG TABLET PO SCH (08:57)
[2018-12-07] MEDS: FUROSEMIDE 40 MG TABLET PO SCH (08:57)
[2018-12-07] MEDS: SPIRONOLACTONE 25 MG TABLET PO SCH (08:57)
[2018-12-07] MEDS: LORATADINE 10 MG TABLET PO SCH (08:57)
[2018-12-07] MEDS: ASPIRIN EC 81 MG TABLET PO SCH (08:57)
[2018-12-07] MEDS: glyBURIDE 2.5 MG TABLET PO SCH (08:58)
[2018-12-07] MEDS ORDERED: VANCOMYCIN INJ 1,500 MG in SODIUM CHLORIDE 0.9% 500 ML IV PRN (09:12)
[2018-12-07] MEDS: DEXTROSE 10% 250 ML IV PRN (11:43)
[2018-12-07 11:58] VITALS: BP 117/82
[2018-12-07] MEDS: DIGOXIN 0.25 MG TABLET PO SCH (12:36)
[2018-12-08] MEDS ORDERED: ERGOCALCIFEROL 50,000 UNIT CAPSULE PO SCH (09:00)
== END 2018-12-07 14:25 | DRG 919 ==
LOC: EDBD → EDUNIT# → N.ED 13:43 → N.EDINP 17:22 → INTOOBSV 17:22 → SUATTDRO 17:22 → N.2E 17:44
PROVIDERS: ADMIT Family Medicine; ATTEND Internal Medicine

== ENCOUNTER 2019-03-22 17:42 | Inpatient (IN) ==
[2019-03-22] MEDS ORDERED: ALBUTEROL/IPRATROPIUM 3 ML NEB RESP TX STA (18:20)
[2019-03-22] MEDS ORDERED: FUROSEMIDE 100 MG/10 ML VIAL IV STA (18:20)
[2019-03-22 18:27] LABS: Basophils % 0.8 % (0.0-0.8); Eosinophils # 0.1 10*3/uL (0.0-0.87); Eosinophils % 1.2 % (0.00-10.9); Hematocrit 39.3 VOL% (42.0-52.0); Hemoglobin 12.4 GM/DL (14.0-18.0); Immature Granulocytes % 0.6 %; Immature Granulocytes Absolute 0.03 #; Lymphocytes # 0.8 10*3/uL (1.4-4.0); Mean Corpuscular HGB Conc 31.6 GM/DL (32-36); Mean Platelet Volume 9.9 FL (9.6-12.0); Monocytes % 15.4 % (1.7-12.7); Platelet Count 180 T/CUMM (130-400); Red Blood Count 4.68 MC/CUMM (3.8-5.5); Red Cell Distribution Width 21.7 % (9.3-17.3)
[2019-03-22 18:34] LABS: INR 1.3; PT Patient Result 14.6 SECS (9.6-12.2)
[2019-03-22 18:54] LABS: ABG Base Excess -0.8 MMOL/L (-2.5-2.5); ABG HCO3 23.8 MMOL/L (20-26); ABG Oxygen Saturation 98.1 % (95-100); ABG PCO2 33.6 MM HG (35-48); ABG PH 7.438 (7.35-7.45); ABG TCO2 19.8 MMOL/L (23-27)
[2019-03-22 19:28] LABS: Apearance,Urine CLEAR (Clear); Bilirubin,Urine Negative (Negative); Blood, Urine Negative (Negative); Glucose,Urine (UA) Negative (Negative); Hyaline Casts,Urine 4 /LPF (0-3); Ketones,Urine Negative (Negative); Mucus,Urine Occasional /LPF (Occasional); Nitrite,Urine Negative (Negative); Protein,Urine Negative; RBC,Urine 2 /HPF (0-4); Squamous Epithelial Cell,Urine Occasional /HPF (0-10); Urine Color Straw (Yellow); Urine Specific Gravity 1.004 (1.001-1.035); WBC,Urine 1 /HPF (0-6)
[2019-03-22] MEDS ORDERED: DOCUSATE SODIUM 100 MG CAPSULE PO PRN (19:53)
[2019-03-22] MEDS ORDERED: ONDANSETRON 4 MG/2 ML VIAL IV PRN (19:53)
[2019-03-22] MEDS ORDERED: ACETAMINOPHEN 325 MG TABLET PO PRN (19:53)
[2019-03-22] MEDS ORDERED: DEXTROSE 10% 250 ML BAG IV PRN (20:03)
[2019-03-22] MEDS ORDERED: GLUCAGON 1 MG VIAL IM PRN (20:03)
[2019-03-22] MEDS: APIXABAN 5 MG TABLET PO SCH (22:48)
[2019-03-22] MEDS: MAGNESIUM OXIDE 400 MG TABLET PO SCH (22:48)
[2019-03-22] MEDS: ATORVASTATIN 20 MG TABLET PO SCH (22:48)
[2019-03-22] MEDS: INSULIN REGULAR 100 UNIT/ML SUBCUT SCH (22:48)
[2019-03-22] MEDS: FUROSEMIDE INJ 100 MG in SODIUM CHLORIDE 0.9% 90 ML IV SCH (22:56)
[2019-03-23 01:37] LABS: Basophils % 0.9 % (0.0-0.8); Eosinophils # 0.1 10*3/uL (0.0-0.87); Eosinophils % 1.3 % (0.00-10.9); Hematocrit 40.2 VOL% (42.0-52.0); Hemoglobin 12.6 GM/DL (14.0-18.0); Immature Granulocytes % 0.2 %; Immature Granulocytes Absolute 0.01 #; Lymphocytes # 0.7 10*3/uL (1.4-4.0); Mean Corpuscular HGB Conc 31.3 GM/DL (32-36); Mean Corpuscular Volume 83.8 FL (87-102); Mean Platelet Volume 9.9 FL (9.6-12.0); Monocytes % 15.2 % (1.7-12.7); Neutrophils % 67.4 % (38.7-73.9); Platelet Count 175 T/CUMM (130-400); Red Cell Distribution Width 21.6 % (9.3-17.3); White Blood Count 4.5 T/CUMM (4-12)
[2019-03-23 01:45] LABS: Calcium 8.7 MG/DL (8.5-10.1); Osmolality,Calculated 286.8 MOS/KG (273-304)
[2019-03-23] MEDS: LEVOTHYROXINE 50 MCG TABLET PO SCH (06:37)
[2019-03-23] MEDS: INSULIN REGULAR 100 UNIT/ML SUBCUT SCH ×4 (07:45→20:45)
[2019-03-23] MEDS: metOLazone 5 MG TABLET PO SCH (08:22)
[2019-03-23] MEDS: APIXABAN 5 MG TABLET PO SCH ×2 (08:22→21:05)
[2019-03-23] MEDS: MAGNESIUM OXIDE 400 MG TABLET PO SCH ×2 (08:22→21:05)
[2019-03-23] MEDS: SPIRONOLACTONE 25 MG TABLET PO SCH (08:22)
[2019-03-23] MEDS: CLOPIDOGREL 75 MG TABLET PO SCH (08:22)
[2019-03-23] MEDS: FUROSEMIDE INJ 100 MG in SODIUM CHLORIDE 0.9% 90 ML IV SCH ×2 (08:23→20:14)
[2019-03-23] MEDS ORDERED: POTASSIUM CHLORIDE 20 MEQ TABLET PO ONE ×2 (10:01→16:14)
[2019-03-23] MEDS ORDERED: MAGNESIUM SULF RIDER 2 GM in PREMIX 1 EACH IV ONE (10:04)
[2019-03-23] MEDS: carvediloL 3.125 MG TABLET PO SCH ×2 (11:04→21:05)
[2019-03-23] MEDS: FINASTERIDE 5 MG TABLET PO SCH (11:04)
[2019-03-23 11:06] LABS: Apearance,Urine CLEAR (Clear); Bacteria,Urine Occasional /HPF (Few); Bilirubin,Urine Negative (Negative); Blood, Urine Small mg/dL (Negative); Glucose,Urine (UA) Negative (Negative); Hyaline Casts,Urine 3 /LPF (0-3); Ketones,Urine Negative (Negative); Nitrite,Urine Negative (Negative); Protein,Urine Negative; RBC,Urine 15 /HPF (0-4); Urine Color Straw (Yellow); Urine Specific Gravity 1.004 (1.001-1.035); Urine Urobilinogen < 2.0 EU/DL (0.2-1.0)
[2019-03-23 13:44] LABS: Calcium 8.8 MG/DL (8.5-10.1)
[2019-03-23] MEDS ORDERED: VANCOMYCIN INJ 2,000 MG in SODIUM CHLORIDE 0.9% 500 ML IV ONE (14:30)
[2019-03-23] MEDS: DIGOXIN 0.25 MG TABLET PO SCH (15:13)
[2019-03-23] MEDS: POLYETHYLENE GLYCOL POWDER 17 GM PACK PO SCH (20:16)
[2019-03-23] MEDS: TAMSULOSIN 0.4 MG CAPSULE PO SCH (21:05)
[2019-03-23] MEDS: ATORVASTATIN 20 MG TABLET PO SCH (21:06)
[2019-03-23] MEDS: TOLTERODINE LA 4 MG CAPSULE PO SCH (22:13)
[2019-03-24] MEDS: VANCOMYCIN INJ 1,500 MG in SODIUM CHLORIDE 0.9% 500 ML IV SCH ×2 (03:37→15:15)
[2019-03-24] MEDS: FUROSEMIDE INJ 100 MG in SODIUM CHLORIDE 0.9% 90 ML IV SCH ×2 (06:04→22:01)
[2019-03-24] MEDS: LEVOTHYROXINE 50 MCG TABLET PO SCH (07:16)
[2019-03-24] MEDS ORDERED: POTASSIUM CHLORIDE 20 MEQ TABLET PO SCH (09:00)
[2019-03-24] MEDS: INSULIN REGULAR 100 UNIT/ML SUBCUT SCH ×4 (09:38→22:06)
[2019-03-24] MEDS: POLYETHYLENE GLYCOL POWDER 17 GM PACK PO SCH ×2 (09:38→22:03)
[2019-03-24] MEDS: SPIRONOLACTONE 25 MG TABLET PO SCH (09:39)
[2019-03-24] MEDS: CLOPIDOGREL 75 MG TABLET PO SCH (09:39)
[2019-03-24] MEDS: APIXABAN 5 MG TABLET PO SCH ×2 (09:39→22:02)
[2019-03-24] MEDS: metOLazone 5 MG TABLET PO SCH (09:39)
[2019-03-24] MEDS: MAGNESIUM OXIDE 400 MG TABLET PO SCH ×2 (09:39→22:02)
[2019-03-24] MEDS: FINASTERIDE 5 MG TABLET PO SCH (09:39)
[2019-03-24] MEDS: carvediloL 3.125 MG TABLET PO SCH ×2 (09:39→22:02)
[2019-03-24 11:24] LABS: Basophils # 0.1 10*3/uL (0.0-0.2); Basophils % 0.9 % (0.0-0.8); Eosinophils # 0.1 10*3/uL (0.0-0.87); Eosinophils % 1.6 % (0.00-10.9); Hematocrit 38.7 VOL% (42.0-52.0); Hemoglobin 12.3 GM/DL (14.0-18.0); Immature Granulocytes % 0.4 %; Immature Granulocytes Absolute 0.02 #; Lymphocytes # 0.7 10*3/uL (1.4-4.0); Lymphocytes % 12.5 % (21.2-54.2); Mean Corpuscular HGB Conc 31.8 GM/DL (32-36); Mean Corpuscular Volume 83.9 FL (87-102); Mean Platelet Volume 10.5 FL (9.6-12.0); Monocytes % 13.5 % (1.7-12.7); Neutrophils % 71.1 % (38.7-73.9); Platelet Count 173 T/CUMM (130-400); Red Blood Count 4.61 MC/CUMM (3.8-5.5); Red Cell Distribution Width 21.5 % (9.3-17.3); White Blood Count 5.6 T/CUMM (4-12)
[2019-03-24 11:41] LABS: Osmolality,Calculated 290.6 MOS/KG (273-304)
[2019-03-24] MEDS: DIGOXIN 0.25 MG TABLET PO SCH (12:46)
[2019-03-24] MEDS: POTASSIUM CHLORIDE 20 MEQ TABLET PO SCH (22:02)
[2019-03-24] MEDS: TAMSULOSIN 0.4 MG CAPSULE PO SCH (22:02)
[2019-03-24] MEDS: TOLTERODINE LA 4 MG CAPSULE PO SCH (22:03)
[2019-03-24] MEDS: ATORVASTATIN 20 MG TABLET PO SCH (22:03)
[2019-03-25] MEDS: VANCOMYCIN INJ 1,500 MG in SODIUM CHLORIDE 0.9% 500 ML IV SCH (03:00)
[2019-03-25] MEDS: LEVOTHYROXINE 50 MCG TABLET PO SCH (07:04)
[2019-03-25 08:46] LABS: Calcium 9.4 MG/DL (8.5-10.1); Osmolality,Calculated 276.7 MOS/KG (273-304)
[2019-03-25] MEDS: INSULIN REGULAR 100 UNIT/ML SUBCUT SCH ×5 (09:47→21:49)
[2019-03-25] MEDS: FUROSEMIDE INJ 100 MG in SODIUM CHLORIDE 0.9% 90 ML IV SCH ×2 (09:47→09:53)
[2019-03-25] MEDS: POTASSIUM CHLORIDE 20 MEQ TABLET PO SCH (09:48)
[2019-03-25] MEDS: SPIRONOLACTONE 25 MG TABLET PO SCH (09:48)
[2019-03-25] MEDS: carvediloL 3.125 MG TABLET PO SCH ×2 (09:48→21:51)
[2019-03-25] MEDS: MAGNESIUM OXIDE 400 MG TABLET PO SCH ×2 (09:52→21:50)
[2019-03-25] MEDS: metOLazone 5 MG TABLET PO SCH (09:53)
[2019-03-25] MEDS: APIXABAN 5 MG TABLET PO SCH (09:53)
[2019-03-25] MEDS: CLOPIDOGREL 75 MG TABLET PO SCH (09:53)
[2019-03-25] MEDS: POLYETHYLENE GLYCOL POWDER 17 GM PACK PO SCH ×2 (09:53→20:16)
[2019-03-25] MEDS: FINASTERIDE 5 MG TABLET PO SCH (09:54)
[2019-03-25] MEDS: DIGOXIN 0.25 MG TABLET PO SCH (13:04)
[2019-03-25 13:19] LABS: Basophils % 0.8 % (0.0-0.8); Eosinophils # 0.1 10*3/uL (0.0-0.87); Eosinophils % 1.9 % (0.00-10.9); Hematocrit 37.8 VOL% (42.0-52.0); Hemoglobin 12.3 GM/DL (14.0-18.0); Immature Granulocytes % 0.6 %; Immature Granulocytes Absolute 0.03 #; Lymphocytes # 0.9 10*3/uL (1.4-4.0); Lymphocytes % 17.3 % (21.2-54.2); Mean Corpuscular HGB Conc 32.5 GM/DL (32-36); Mean Corpuscular Volume 82.9 FL (87-102); Monocytes % 14.5 % (1.7-12.7); Neutrophils % 64.9 % (38.7-73.9); Platelet Count 172 T/CUMM (130-400); Red Blood Count 4.56 MC/CUMM (3.8-5.5); Red Cell Distribution Width 21.2 % (9.3-17.3); White Blood Count 5.3 T/CUMM (4-12)
[2019-03-25] MEDS: ceFAZolin 1,000 MG in SYRINGE 1 EACH IV SCH (16:44)
[2019-03-25] MEDS: TOLTERODINE LA 4 MG CAPSULE PO SCH (21:50)
[2019-03-25] MEDS: APIXABAN 2.5 MG TABLET PO SCH (21:50)
[2019-03-25] MEDS: TAMSULOSIN 0.4 MG CAPSULE PO SCH (21:50)
[2019-03-25] MEDS: ATORVASTATIN 20 MG TABLET PO SCH (21:51)
[2019-03-26] MEDS: ceFAZolin 1,000 MG in SYRINGE 1 EACH IV SCH ×3 (02:00→16:34)
[2019-03-26] MEDS: LEVOTHYROXINE 50 MCG TABLET PO SCH (06:42)
[2019-03-26] MEDS: INSULIN REGULAR 100 UNIT/ML SUBCUT SCH ×4 (08:30→21:25)
[2019-03-26] MEDS: SPIRONOLACTONE 25 MG TABLET PO SCH (09:49)
[2019-03-26] MEDS: metOLazone 5 MG TABLET PO SCH (09:50)
[2019-03-26] MEDS: FINASTERIDE 5 MG TABLET PO SCH (09:50)
[2019-03-26] MEDS: CLOPIDOGREL 75 MG TABLET PO SCH (09:50)
[2019-03-26] MEDS: carvediloL 3.125 MG TABLET PO SCH ×2 (09:50→21:27)
[2019-03-26] MEDS: APIXABAN 2.5 MG TABLET PO SCH ×2 (09:50→21:27)
[2019-03-26] MEDS: MAGNESIUM OXIDE 400 MG TABLET PO SCH ×2 (09:50→21:26)
[2019-03-26] MEDS: FUROSEMIDE 40 MG TABLET PO SCH (09:50)
[2019-03-26] MEDS: POLYETHYLENE GLYCOL POWDER 17 GM PACK PO SCH ×2 (09:51→21:25)
[2019-03-26] MEDS: DIGOXIN 0.25 MG TABLET PO SCH (12:18)
[2019-03-26 12:56] LABS: Basophils % 0.9 % (0.0-0.8); Eosinophils # 0.1 10*3/uL (0.0-0.87); Hematocrit 39.3 VOL% (42.0-52.0); Hemoglobin 12.8 GM/DL (14.0-18.0); Immature Granulocytes % 0.4 %; Immature Granulocytes Absolute 0.02 #; Lymphocytes # 0.8 10*3/uL (1.4-4.0); Lymphocytes % 17.2 % (21.2-54.2); Mean Corpuscular HGB Conc 32.6 GM/DL (32-36); Mean Corpuscular Volume 82.2 FL (87-102); Mean Platelet Volume 10.6 FL (9.6-12.0); Neutrophils % 66.5 % (38.7-73.9); Platelet Count 150 T/CUMM (130-400); Red Blood Count 4.78 MC/CUMM (3.8-5.5); Red Cell Distribution Width 21.1 % (9.3-17.3); White Blood Count 4.5 T/CUMM (4-12)
[2019-03-26 13:14] LABS: Calcium 8.8 MG/DL (8.5-10.1); Osmolality,Calculated 275.7 MOS/KG (273-304)
[2019-03-26] MEDS: TOLTERODINE LA 4 MG CAPSULE PO SCH (21:26)
[2019-03-26] MEDS: TAMSULOSIN 0.4 MG CAPSULE PO SCH (21:27)
[2019-03-26] MEDS: ATORVASTATIN 20 MG TABLET PO SCH (21:27)
[2019-03-27] MEDS: ceFAZolin 1,000 MG in SYRINGE 1 EACH IV SCH ×3 (01:11→18:18)
[2019-03-27] MEDS: LEVOTHYROXINE 50 MCG TABLET PO SCH (06:46)
[2019-03-27 08:14] LABS: Basophils % 0.9 % (0.0-0.8); Eosinophils # 0.1 10*3/uL (0.0-0.87); Eosinophils % 2.7 % (0.00-10.9); Hematocrit 37.6 VOL% (42.0-52.0); Hemoglobin 12.2 GM/DL (14.0-18.0); Immature Granulocytes % 0.5 %; Immature Granulocytes Absolute 0.02 #; Lymphocytes # 0.8 10*3/uL (1.4-4.0); Lymphocytes % 18.5 % (21.2-54.2); Mean Corpuscular HGB Conc 32.4 GM/DL (32-36); Mean Corpuscular Volume 82.6 FL (87-102); Mean Platelet Volume 10.3 FL (9.6-12.0); Monocytes % 16.2 % (1.7-12.7); Neutrophils % 61.2 % (38.7-73.9); Platelet Count 160 T/CUMM (130-400); Red Blood Count 4.55 MC/CUMM (3.8-5.5); Red Cell Distribution Width 21.1 % (9.3-17.3); White Blood Count 4.4 T/CUMM (4-12)
[2019-03-27 08:31] LABS: Calcium 8.9 MG/DL (8.5-10.1); Osmolality,Calculated 278.5 MOS/KG (273-304)
[2019-03-27] MEDS: INSULIN REGULAR 100 UNIT/ML SUBCUT SCH ×3 (08:33→18:13)
[2019-03-27 08:39] LABS: Band Neutrophils 2 % (0-10); Eosinophils 6 % (0-10); Lymphocytes 18 % (20-55); Platelet Estimate Normal; Segmented Neutrophils 62 % (50-85); Total Cells Counted 100
[2019-03-27 08:40] LABS: Hypochromasia 1+; Macrocytosis 2+
[2019-03-27] MEDS: SPIRONOLACTONE 25 MG TABLET PO SCH (09:06)
[2019-03-27] MEDS: APIXABAN 2.5 MG TABLET PO SCH ×2 (09:07→21:44)
[2019-03-27] MEDS: CLOPIDOGREL 75 MG TABLET PO SCH (09:07)
[2019-03-27] MEDS: MAGNESIUM OXIDE 400 MG TABLET PO SCH ×2 (09:07→21:45)
[2019-03-27] MEDS: carvediloL 3.125 MG TABLET PO SCH (09:07)
[2019-03-27] MEDS: FINASTERIDE 5 MG TABLET PO SCH (09:07)
[2019-03-27] MEDS: FUROSEMIDE 40 MG TABLET PO SCH (09:07)
[2019-03-27] MEDS: POLYETHYLENE GLYCOL POWDER 17 GM PACK PO SCH (09:07)
[2019-03-27] MEDS: DIGOXIN 0.25 MG TABLET PO SCH (15:11)
[2019-03-27] MEDS: TAMSULOSIN 0.4 MG CAPSULE PO SCH (21:44)
[2019-03-27] MEDS: ATORVASTATIN 20 MG TABLET PO SCH (21:44)
[2019-03-27] MEDS: TOLTERODINE LA 4 MG CAPSULE PO SCH (21:44)
[2019-03-28] MEDS: INSULIN REGULAR 100 UNIT/ML SUBCUT SCH ×5 (00:30→20:57)
[2019-03-28] MEDS: carvediloL 3.125 MG TABLET PO SCH ×3 (00:30→20:57)
[2019-03-28] MEDS: POLYETHYLENE GLYCOL POWDER 17 GM PACK PO SCH ×3 (00:32→20:58)
[2019-03-28] MEDS: ceFAZolin 1,000 MG in SYRINGE 1 EACH IV SCH ×3 (01:35→18:18)
[2019-03-28] MEDS: LEVOTHYROXINE 50 MCG TABLET PO SCH (06:26)
[2019-03-28 09:02] LABS: Basophils % 1.1 % (0.0-0.8); Eosinophils # 0.1 10*3/uL (0.0-0.87); Eosinophils % 3.2 % (0.00-10.9); Hematocrit 38.5 VOL% (42.0-52.0); Hemoglobin 12.3 GM/DL (14.0-18.0); Immature Granulocytes % 0.3 %; Immature Granulocytes Absolute 0.01 #; Lymphocytes # 0.7 10*3/uL (1.4-4.0); Lymphocytes % 19.5 % (21.2-54.2); Mean Corpuscular HGB Conc 31.9 GM/DL (32-36); Mean Corpuscular Volume 82.8 FL (87-102); Mean Platelet Volume 10.1 FL (9.6-12.0); Monocytes % 14.5 % (1.7-12.7); Neutrophils % 61.4 % (38.7-73.9); Platelet Count 166 T/CUMM (130-400); Red Blood Count 4.65 MC/CUMM (3.8-5.5); Red Cell Distribution Width 21.2 % (9.3-17.3); White Blood Count 3.8 T/CUMM (4-12)
[2019-03-28] MEDS: SPIRONOLACTONE 25 MG TABLET PO SCH (09:03)
[2019-03-28] MEDS: MAGNESIUM OXIDE 400 MG TABLET PO SCH ×2 (09:14→21:23)
[2019-03-28] MEDS: FUROSEMIDE 40 MG TABLET PO SCH (09:14)
[2019-03-28] MEDS: APIXABAN 2.5 MG TABLET PO SCH ×2 (09:14→21:24)
[2019-03-28] MEDS: CLOPIDOGREL 75 MG TABLET PO SCH (09:17)
[2019-03-28] MEDS: FINASTERIDE 5 MG TABLET PO SCH (09:17)
[2019-03-28 09:32] LABS: Calcium 8.6 MG/DL (8.5-10.1)
[2019-03-28] MEDS: DIGOXIN 0.25 MG TABLET PO SCH (13:19)
[2019-03-28] MEDS: ATORVASTATIN 20 MG TABLET PO SCH (21:23)
[2019-03-28] MEDS: TAMSULOSIN 0.4 MG CAPSULE PO SCH (21:24)
[2019-03-28] MEDS: TOLTERODINE LA 4 MG CAPSULE PO SCH (23:25)
[2019-03-29] MEDS: ceFAZolin 1,000 MG in SYRINGE 1 EACH IV SCH ×3 (01:17→16:21)
[2019-03-29] MEDS: LEVOTHYROXINE 50 MCG TABLET PO SCH (06:29)
[2019-03-29] MEDS: INSULIN REGULAR 100 UNIT/ML SUBCUT SCH ×4 (08:30→21:22)
[2019-03-29] MEDS: POTASSIUM CHLORIDE 20 MEQ TABLET PO SCH (09:06)
[2019-03-29] MEDS: MAGNESIUM OXIDE 400 MG TABLET PO SCH ×2 (09:06→21:17)
[2019-03-29] MEDS: APIXABAN 2.5 MG TABLET PO SCH ×2 (09:07→21:18)
[2019-03-29] MEDS: CLOPIDOGREL 75 MG TABLET PO SCH (09:07)
[2019-03-29] MEDS: FINASTERIDE 5 MG TABLET PO SCH (09:07)
[2019-03-29] MEDS: FUROSEMIDE 40 MG TABLET PO SCH (09:07)
[2019-03-29] MEDS: carvediloL 3.125 MG TABLET PO SCH ×2 (09:07→21:19)
[2019-03-29] MEDS: POLYETHYLENE GLYCOL POWDER 17 GM PACK PO SCH ×2 (09:11→21:22)
[2019-03-29] MEDS: DIGOXIN 0.25 MG TABLET PO SCH (12:47)
[2019-03-29] MEDS: ATORVASTATIN 20 MG TABLET PO SCH (21:17)
[2019-03-29] MEDS: TOLTERODINE LA 4 MG CAPSULE PO SCH (21:17)
[2019-03-29] MEDS: TAMSULOSIN 0.4 MG CAPSULE PO SCH (21:18)
[2019-03-30] MEDS: ceFAZolin 1,000 MG in SYRINGE 1 EACH IV SCH ×3 (00:48→16:35)
[2019-03-30] MEDS: LEVOTHYROXINE 50 MCG TABLET PO SCH (06:17)
[2019-03-30 07:46] LABS: Basophils % 0.9 % (0.0-0.8); Eosinophils # 0.2 10*3/uL (0.0-0.87); Eosinophils % 4.4 % (0.00-10.9); Hematocrit 37.5 VOL% (42.0-52.0); Hemoglobin 12.1 GM/DL (14.0-18.0); Immature Granulocytes % 0.3 %; Immature Granulocytes Absolute 0.01 #; Lymphocytes # 0.6 10*3/uL (1.4-4.0); Lymphocytes % 17.8 % (21.2-54.2); Mean Corpuscular HGB Conc 32.3 GM/DL (32-36); Mean Corpuscular Volume 83.5 FL (87-102); Mean Platelet Volume 10.5 FL (9.6-12.0); Neutrophils % 59.6 % (38.7-73.9); Platelet Count 169 T/CUMM (130-400); Red Blood Count 4.49 MC/CUMM (3.8-5.5); Red Cell Distribution Width 20.8 % (9.3-17.3); White Blood Count 3.4 T/CUMM (4-12)
[2019-03-30 08:06] LABS: Band Neutrophils 1 % (0-10); Eosinophils 5 % (0-10); Lymphocytes 20 % (20-55); Osmolality,Calculated 279.4 MOS/KG (273-304); Segmented Neutrophils 63 % (50-85); Total Cells Counted 100
[2019-03-30 08:07] LABS: Anisocytosis 1+; Hypochromasia 1+; Microcytosis 1+; Platelet Estimate Adequate
[2019-03-30] MEDS ORDERED: FUROSEMIDE 20 MG TABLET PO SCH (09:37)
[2019-03-30] MEDS: APIXABAN 2.5 MG TABLET PO SCH ×2 (09:43→21:48)
[2019-03-30] MEDS: MAGNESIUM OXIDE 400 MG TABLET PO SCH ×2 (09:43→21:47)
[2019-03-30] MEDS: POTASSIUM CHLORIDE 20 MEQ TABLET PO SCH (09:43)
[2019-03-30] MEDS: carvediloL 3.125 MG TABLET PO SCH ×2 (09:43→21:48)
[2019-03-30] MEDS: FINASTERIDE 5 MG TABLET PO SCH (09:44)
[2019-03-30] MEDS: CLOPIDOGREL 75 MG TABLET PO SCH (09:45)
[2019-03-30] MEDS: INSULIN REGULAR 100 UNIT/ML SUBCUT SCH ×4 (09:47→22:02)
[2019-03-30] MEDS: POLYETHYLENE GLYCOL POWDER 17 GM PACK PO SCH ×2 (09:53→22:02)
[2019-03-30] MEDS: FUROSEMIDE 40 MG TABLET PO SCH (10:17)
[2019-03-30] MEDS: DIGOXIN 0.25 MG TABLET PO SCH (13:06)
[2019-03-30] MEDS: TAMSULOSIN 0.4 MG CAPSULE PO SCH (21:48)
[2019-03-30] MEDS: TOLTERODINE LA 4 MG CAPSULE PO SCH (21:48)
[2019-03-30] MEDS: ATORVASTATIN 20 MG TABLET PO SCH (21:48)
[2019-03-31] MEDS: ceFAZolin 1,000 MG in SYRINGE 1 EACH IV SCH ×3 (01:04→18:37)
[2019-03-31 04:47] LABS: Basophils # 0.1 10*3/uL (0.0-0.2); Basophils % 1.3 % (0.0-0.8); Eosinophils # 0.2 10*3/uL (0.0-0.87); Eosinophils % 4.5 % (0.00-10.9); Hematocrit 37.7 VOL% (42.0-52.0); Immature Granulocytes % 0.3 %; Immature Granulocytes Absolute 0.01 #; Lymphocytes # 0.8 10*3/uL (1.4-4.0); Lymphocytes % 20.4 % (21.2-54.2); Mean Corpuscular HGB Conc 31.8 GM/DL (32-36); Mean Corpuscular Volume 82.9 FL (87-102); Mean Platelet Volume 11.6 FL (9.6-12.0); Monocytes % 20.7 % (1.7-12.7); Neutrophils % 52.8 % (38.7-73.9); Platelet Count 169 T/CUMM (130-400); Red Blood Count 4.55 MC/CUMM (3.8-5.5); Red Cell Distribution Width 21.2 % (9.3-17.3); White Blood Count 3.8 T/CUMM (4-12)
[2019-03-31 05:13] LABS: Calcium 8.7 MG/DL (8.5-10.1); Osmolality,Calculated 272.8 MOS/KG (273-304)
[2019-03-31 05:17] LABS: Eosinophils 6 % (0-10); Lymphocytes 23 % (20-55); Platelet Estimate Normal; Segmented Neutrophils 49 % (50-85); Total Cells Counted 100
[2019-03-31] MEDS: LEVOTHYROXINE 50 MCG TABLET PO SCH (06:32)
[2019-03-31] MEDS: INSULIN REGULAR 100 UNIT/ML SUBCUT SCH ×3 (08:08→17:36)
[2019-03-31] MEDS: MAGNESIUM OXIDE 400 MG TABLET PO SCH (08:55)
[2019-03-31] MEDS: CLOPIDOGREL 75 MG TABLET PO SCH (08:56)
[2019-03-31] MEDS: carvediloL 3.125 MG TABLET PO SCH (08:56)
[2019-03-31] MEDS: POTASSIUM CHLORIDE 20 MEQ TABLET PO SCH (08:56)
[2019-03-31] MEDS: APIXABAN 2.5 MG TABLET PO SCH (08:56)
[2019-03-31] MEDS: POLYETHYLENE GLYCOL POWDER 17 GM PACK PO SCH (08:56)
[2019-03-31] MEDS: FINASTERIDE 5 MG TABLET PO SCH (08:56)
[2019-03-31 13:10] VITALS: BP 100/69
[2019-03-31] MEDS: DIGOXIN 0.25 MG TABLET PO SCH (13:10)
[2019-03-31] MEDS ORDERED: cefTRIAXone 2,000 MG in SYRINGE 1 EACH IV ONE (15:00)
[2019-04-01] MEDS ORDERED: SPIRONOLACTONE 25 MG TABLET PO SCH (09:00)
== END 2019-03-31 18:38 | disposition home health service (06) | DRG 292 ==
LOC: EDUNIT# → EDBD → N.ED 17:42 → SUATTDRO 19:52 → N.EDINP 19:52 → N.TELES 20:19
PROVIDERS: ADMIT Hospitalist

== ENCOUNTER 2019-04-30 18:57 | Inpatient (IN) ==
[2019-04-30] MEDS ORDERED: FUROSEMIDE 40 MG/4 ML VIAL IV STA (19:34)
[2019-04-30 20:28] LABS: Apearance,Urine CLEAR (Clear); Bacteria,Urine Occasional /HPF (Few); Bilirubin,Urine Negative (Negative); Blood, Urine Negative (Negative); Glucose,Urine (UA) Negative (Negative); Hyaline Casts,Urine 7 /LPF (0-3); Ketones,Urine Negative (Negative); Mucus,Urine Occasional /LPF (Occasional); Nitrite,Urine Negative (Negative); Protein,Urine Negative; RBC,Urine 9 /HPF (0-4); Squamous Epithelial Cell,Urine Occasional /HPF (0-10); Urine Color Yellow (Yellow); Urine Specific Gravity 1.014 (1.001-1.035); WBC,Urine 1 /HPF (0-6)
[2019-04-30 21:10] LABS: Basophils % 0.6 % (0.0-0.8); Eosinophils # 0.1 10*3/uL (0.0-0.87); Eosinophils % 1.7 % (0.00-10.9); Hematocrit 38.3 VOL% (42.0-52.0); Hemoglobin 11.8 GM/DL (14.0-18.0); Immature Granulocytes % 0.3 %; Immature Granulocytes Absolute 0.02 #; Lymphocytes # 0.8 10*3/uL (1.4-4.0); Lymphocytes % 11.5 % (21.2-54.2); Mean Corpuscular HGB Conc 30.8 GM/DL (32-36); Mean Corpuscular Volume 93.4 FL (87-102); Mean Platelet Volume 9.9 FL (9.6-12.0); Monocytes % 13.6 % (1.7-12.7); Neutrophils % 72.3 % (38.7-73.9); Platelet Count 198 T/CUMM (130-400); White Blood Count 6.9 T/CUMM (4-12)
[2019-04-30 21:33] LABS: Albumin 3.1 G/DL (3.4-5.0); Bilirubin,Total 2.6 MG/DL (0.2-1.0); Osmolality,Calculated 285.8 MOS/KG (273-304); Total Protein 8.8 G/DL (6.4-8.3)
[2019-05-01] MEDS ORDERED: GLUCAGON 1 MG VIAL IM PRN
[2019-05-01] MEDS ORDERED: DEXTROSE 50% 25 GM/50 ML VIAL IV PRN
[2019-05-01] MEDS: APIXABAN 2.5 MG TABLET PO SCH ×3 (00:44→20:41)
[2019-05-01] MEDS: VANCOMYCIN INJ 1,500 MG in SODIUM CHLORIDE 0.9% 500 ML IV SCH ×4 (00:44→23:41)
[2019-05-01] MEDS ORDERED: INFLUENZA VIRUS VACCINE 0.5 ML SYRINGE IM ONE (01:59)
[2019-05-01] MEDS: LEVOTHYROXINE 50 MCG TABLET PO SCH (05:52)
[2019-05-01 06:32] LABS: Albumin 2.8 G/DL (3.4-5.0); Bilirubin,Total 2.1 MG/DL (0.2-1.0); Calcium 8.4 MG/DL (8.5-10.1); Osmolality,Calculated 285.1 MOS/KG (273-304); Thyroid Stimulating Hormone 2.8 uIU/ml (0.358-3.74); Total Protein 8.2 G/DL (6.4-8.3)
[2019-05-01] MEDS ORDERED: carvediloL 3.125 MG TABLET PO SCH (08:00)
[2019-05-01] MEDS: INSULIN LISPRO 100 UNIT/ML SUBCUT SCH ×2 (09:08→15:46)
[2019-05-01] MEDS: CLOPIDOGREL 75 MG TABLET PO SCH (09:24)
[2019-05-01] MEDS: FINASTERIDE 5 MG TABLET PO SCH (09:24)
[2019-05-01] MEDS: SPIRONOLACTONE 25 MG TABLET PO SCH (09:24)
[2019-05-01] MEDS: LISINOPRIL 2.5 MG TABLET PO SCH (09:24)
[2019-05-01] MEDS: POLYETHYLENE GLYCOL POWDER 17 GM PACK PO SCH (09:24)
[2019-05-01] MEDS: MAGNESIUM OXIDE 400 MG TABLET PO SCH ×2 (09:24→20:40)
[2019-05-01] MEDS: FUROSEMIDE 100 MG/10 ML VIAL IV SCH ×2 (09:25→16:27)
[2019-05-01] MEDS ORDERED: diphenhydrAMINE CAP 25 MG CAPSULE PO PRN (11:45)
[2019-05-01] MEDS ORDERED: diphenhydrAMINE 2% CREAM 28 GM TUBE TOP PRN (11:45)
[2019-05-01] MEDS: SKIN HEALING OINT (AQUAPHOR) 50 GM TUBE TOP SCH (13:23)
[2019-05-01] MEDS: DIGOXIN 0.25 MG TABLET PO SCH (13:24)
[2019-05-01] MEDS: carvediloL 6.25 MG TABLET PO SCH (16:27)
[2019-05-01] MEDS ORDERED: LACTULOSE 20 GM/30 ML UDCUP PO PRN (16:30)
[2019-05-01] MEDS: LACTULOSE 20 GM/30 ML UDCUP PO ONE ×2 (16:45→17:05)
[2019-05-01] MEDS: ATORVASTATIN 40 MG TABLET PO SCH (20:40)
[2019-05-01] MEDS: TAMSULOSIN 0.4 MG CAPSULE PO SCH (20:40)
[2019-05-02 04:51] LABS: Basophils % 0.8 % (0.0-0.8); Eosinophils # 0.3 10*3/uL (0.0-0.87); Eosinophils % 6.7 % (0.00-10.9); Hematocrit 35.9 VOL% (42.0-52.0); Immature Granulocytes % 0.2 %; Immature Granulocytes Absolute 0.01 #; Lymphocytes # 0.7 10*3/uL (1.4-4.0); Lymphocytes % 13.8 % (21.2-54.2); Mean Corpuscular HGB Conc 30.6 GM/DL (32-36); Mean Corpuscular Volume 93.7 FL (87-102); Mean Platelet Volume 10.3 FL (9.6-12.0); Monocytes % 17.7 % (1.7-12.7); Neutrophils % 60.8 % (38.7-73.9); Platelet Count 193 T/CUMM (130-400); Red Blood Count 3.83 MC/CUMM (3.8-5.5); Red Cell Distribution Width 20.7 % (9.3-17.3); White Blood Count 5.1 T/CUMM (4-12)
[2019-05-02 05:23] LABS: Calcium 8.5 MG/DL (8.5-10.1); Osmolality,Calculated 289.7 MOS/KG (273-304)
[2019-05-02 05:33] LABS: Band Neutrophils 1 % (0-10); Eosinophils 6 % (0-10); Hypochromasia Slight; Lymphocytes 21 % (20-55); Segmented Neutrophils 66 % (50-85); Total Cells Counted 100
[2019-05-02 05:34] LABS: Polychromasia Slight; Target Cells 1+
[2019-05-02 05:36] LABS: Ovalocytes Slight; Platelet Estimate Normal
[2019-05-02] MEDS: LEVOTHYROXINE 50 MCG TABLET PO SCH (05:36)
[2019-05-02] MEDS: INSULIN LISPRO 100 UNIT/ML SUBCUT SCH ×2 (08:26→16:43)
[2019-05-02] MEDS: VANCOMYCIN INJ 1,500 MG in SODIUM CHLORIDE 0.9% 500 ML IV SCH (08:27)
[2019-05-02] MEDS: FINASTERIDE 5 MG TABLET PO SCH (09:22)
[2019-05-02] MEDS: PANTOPRAZOLE 40 MG TABLET PO SCH (09:22)
[2019-05-02] MEDS: MAGNESIUM OXIDE 400 MG TABLET PO SCH ×2 (09:22→20:48)
[2019-05-02] MEDS: CLOPIDOGREL 75 MG TABLET PO SCH (09:22)
[2019-05-02] MEDS: carvediloL 6.25 MG TABLET PO SCH ×2 (09:22→16:36)
[2019-05-02] MEDS: SPIRONOLACTONE 25 MG TABLET PO SCH (09:22)
[2019-05-02] MEDS: LISINOPRIL 2.5 MG TABLET PO SCH (09:23)
[2019-05-02] MEDS: SKIN HEALING OINT (AQUAPHOR) 50 GM TUBE TOP SCH (09:23)
[2019-05-02] MEDS: POLYETHYLENE GLYCOL POWDER 17 GM PACK PO SCH (09:23)
[2019-05-02] MEDS: FUROSEMIDE 100 MG/10 ML VIAL IV SCH ×2 (09:42→16:36)
[2019-05-02] MEDS ORDERED: POLYETHYLENE GLYCOL POWDER 17 GM PACK PO PRN (11:43)
[2019-05-02] MEDS: ENOXAPARIN 40 MG/0.4 ML SYRINGE SUBCUT SCH (13:17)
[2019-05-02] MEDS: DIGOXIN 0.25 MG TABLET PO SCH (13:21)
[2019-05-02] MEDS: ATORVASTATIN 40 MG TABLET PO SCH (20:48)
[2019-05-02] MEDS: TAMSULOSIN 0.4 MG CAPSULE PO SCH (20:48)
[2019-05-03 04:20] LABS: Basophils % 0.6 % (0.0-0.8); Eosinophils # 0.5 10*3/uL (0.0-0.87); Eosinophils % 8.5 % (0.00-10.9); Hematocrit 36.8 VOL% (42.0-52.0); Hemoglobin 11.2 GM/DL (14.0-18.0); Immature Granulocytes % 0.6 %; Immature Granulocytes Absolute 0.03 #; Lymphocytes # 0.7 10*3/uL (1.4-4.0); Lymphocytes % 13.3 % (21.2-54.2); Mean Corpuscular HGB Conc 30.4 GM/DL (32-36); Mean Corpuscular Volume 94.1 FL (87-102); Mean Platelet Volume 10.3 FL (9.6-12.0); Monocytes % 16.8 % (1.7-12.7); Neutrophils % 60.2 % (38.7-73.9); Platelet Count 191 T/CUMM (130-400); Red Blood Count 3.91 MC/CUMM (3.8-5.5); Red Cell Distribution Width 20.5 % (9.3-17.3); White Blood Count 5.4 T/CUMM (4-12)
[2019-05-03 04:47] LABS: Eosinophils 12 % (0-10); Hypochromasia 1+; Lymphocytes 11 % (20-55); Platelet Estimate Adequate; Segmented Neutrophils 66 % (50-85); Total Cells Counted 100
[2019-05-03 04:52] LABS: Albumin 2.6 G/DL (3.4-5.0); Calcium 8.5 MG/DL (8.5-10.1); Osmolality,Calculated 281.3 MOS/KG (273-304); Total Protein 7.6 G/DL (6.4-8.3)
[2019-05-03] MEDS: LEVOTHYROXINE 50 MCG TABLET PO SCH (05:41)
[2019-05-03] MEDS: CLOPIDOGREL 75 MG TABLET PO SCH (08:56)
[2019-05-03] MEDS: MAGNESIUM OXIDE 400 MG TABLET PO SCH (08:56)
[2019-05-03] MEDS: carvediloL 6.25 MG TABLET PO SCH (08:56)
[2019-05-03] MEDS: SPIRONOLACTONE 25 MG TABLET PO SCH (08:56)
[2019-05-03] MEDS: FINASTERIDE 5 MG TABLET PO SCH (08:56)
[2019-05-03] MEDS: PANTOPRAZOLE 40 MG TABLET PO SCH (08:57)
[2019-05-03] MEDS: SKIN HEALING OINT (AQUAPHOR) 50 GM TUBE TOP SCH (08:57)
[2019-05-03] MEDS: LISINOPRIL 2.5 MG TABLET PO SCH (08:57)
[2019-05-03] MEDS: INSULIN LISPRO 100 UNIT/ML SUBCUT SCH (09:04)
[2019-05-03] MEDS: FUROSEMIDE 100 MG/10 ML VIAL IV SCH (09:53)
[2019-05-03 11:03] VITALS: BP 124/68
[2019-05-03] MEDS: ENOXAPARIN 40 MG/0.4 ML SYRINGE SUBCUT SCH (11:21)
== END 2019-05-03 12:05 | DRG 292 ==
LOC: EDUNIT# → EDBD → N.ED 18:57 → N.EDINP 22:56 → N.TELEN 23:19
PROVIDERS: ADMIT Internal Medicine; ATTEND Internal Medicine

== ENCOUNTER 2019-07-26 19:12 | Observation (INO) ==
[2019-07-26] MEDS ORDERED: MORPHINE 4 MG/1 ML VIAL IV STA (19:41)
[2019-07-26] MEDS ORDERED: NITROGLYCERIN 2% OINT 1 INCH/GM PACK TOP STA (19:41)
[2019-07-26] MEDS ORDERED: ONDANSETRON 4 MG/2 ML VIAL IV STA (19:41)
[2019-07-26] MEDS ORDERED: ASPIRIN 325 MG TABLET PO STA (19:41)
[2019-07-26 19:48] LABS: Basophils # 0.1 10*3/uL (0.0-0.2); Eosinophils # 0.1 10*3/uL (0.0-0.87); Eosinophils % 2.4 % (0.00-10.9); Hematocrit 41.9 VOL% (42.0-52.0); Hemoglobin 13.1 GM/DL (14.0-18.0); Immature Granulocytes % 0.4 %; Immature Granulocytes Absolute 0.02 #; Lymphocytes # 1.2 10*3/uL (1.4-4.0); Lymphocytes % 24.1 % (21.2-54.2); Mean Corpuscular HGB Conc 31.3 GM/DL (32-36); Mean Platelet Volume 11.1 FL (9.6-12.0); Monocytes % 20.1 % (1.7-12.7); Platelet Count 220 T/CUMM (130-400); Red Blood Count 4.41 MC/CUMM (3.8-5.5); Red Cell Distribution Width 15.3 % (9.3-17.3); White Blood Count 5.1 T/CUMM (4-12)
[2019-07-26 20:13] LABS: Lymphocytes 24 % (20-55); Platelet Estimate Normal; Segmented Neutrophils 57 % (50-85); Total Cells Counted 100
[2019-07-26 20:14] LABS: Anisocytosis Slight; Ovalocytes Few; Poikilocytosis Slight
[2019-07-26] MEDS ORDERED: FUROSEMIDE 40 MG/4 ML VIAL IV STA (20:46)
[2019-07-26 21:19] LABS: INR 1.4; PT Patient Result 14.9 SECS (9.6-12.2)
[2019-07-26 21:27] LABS: Albumin 3.1 G/DL (3.4-5.0); Bilirubin,Total 2.9 MG/DL (0.2-1.0); Calcium 8.5 MG/DL (8.5-10.1); Osmolality,Calculated 283.3 MOS/KG (273-304); Total Protein 8.2 G/DL (6.4-8.3)
[2019-07-26] MEDS ORDERED: MORPHINE 4 MG/1 ML VIAL IV PRN (21:43)
[2019-07-26] MEDS ORDERED: diphenhydrAMINE CAP 25 MG CAPSULE PO PRN (21:43)
[2019-07-26] MEDS ORDERED: NICOTINE 21 MG/24 HR PATCH TRANSDERM PRN (21:43)
[2019-07-26] MEDS ORDERED: ONDANSETRON 4 MG/2 ML VIAL IV PRN (21:43)
[2019-07-26] MEDS ORDERED: guaiFENesin/DM ER 600-30 MG TABLET PO PRN (21:43)
[2019-07-27] MEDS: ALBUTEROL/IPRATROPIUM 3 ML NEB RESP TX SCH ×5 (00:30→21:26)
[2019-07-27] MEDS ORDERED: DOCUSATE SODIUM 100 MG CAPSULE PO PRN (01:58)
[2019-07-27] MEDS: LEVOTHYROXINE 50 MCG TABLET PO SCH (06:06)
[2019-07-27] MEDS: SPIRONOLACTONE 25 MG TABLET PO SCH (10:11)
[2019-07-27] MEDS: PANTOPRAZOLE 40 MG TABLET PO SCH (10:11)
[2019-07-27] MEDS: MAGNESIUM OXIDE 400 MG TABLET PO SCH ×2 (10:12→20:18)
[2019-07-27] MEDS: lisinopriL 2.5 MG TABLET PO SCH (10:12)
[2019-07-27] MEDS: APIXABAN 2.5 MG TABLET PO SCH ×2 (10:12→20:18)
[2019-07-27] MEDS: carvediloL 3.125 MG TABLET PO SCH ×2 (10:12→16:28)
[2019-07-27] MEDS: CLOPIDOGREL 75 MG TABLET PO SCH (10:12)
[2019-07-27] MEDS: FUROSEMIDE 40 MG/4 ML VIAL IV SCH ×2 (10:15→16:28)
[2019-07-27] MEDS: FINASTERIDE 5 MG TABLET PO SCH (10:15)
[2019-07-27] MEDS: SKIN HEALING OINT (AQUAPHOR) 50 GM TUBE TOP SCH (10:17)
[2019-07-27] MEDS ORDERED: DIGOXIN 0.25 MG TABLET PO SCH (13:00)
[2019-07-27] MEDS ORDERED: TAMSULOSIN 0.4 MG CAPSULE PO SCH (21:00)
[2019-07-27] MEDS ORDERED: ATORVASTATIN 40 MG TABLET PO SCH (21:00)
[2019-07-28] MEDS: ALBUTEROL/IPRATROPIUM 3 ML NEB RESP TX SCH ×2 (02:27→07:12)
[2019-07-28 05:43] LABS: Basophils % 1.1 % (0.0-0.8); Eosinophils # 0.1 10*3/uL (0.0-0.87); Eosinophils % 3.2 % (0.00-10.9); Hematocrit 39.8 VOL% (42.0-52.0); Hemoglobin 12.2 GM/DL (14.0-18.0); Lymphocytes # 0.9 10*3/uL (1.4-4.0); Lymphocytes % 24.3 % (21.2-54.2); Mean Corpuscular HGB Conc 30.7 GM/DL (32-36); Mean Corpuscular Volume 95.4 FL (87-102); Mean Platelet Volume 10.5 FL (9.6-12.0); Neutrophils % 57.4 % (38.7-73.9); Platelet Count 198 T/CUMM (130-400); Red Blood Count 4.17 MC/CUMM (3.8-5.5); Red Cell Distribution Width 14.9 % (9.3-17.3); White Blood Count 3.8 T/CUMM (4-12)
[2019-07-28 06:01] LABS: Calcium 8.8 MG/DL (8.5-10.1); Osmolality,Calculated 281.4 MOS/KG (273-304)
[2019-07-28] MEDS: LEVOTHYROXINE 50 MCG TABLET PO SCH (06:14)
[2019-07-28] MEDS ORDERED: POTASSIUM CHLORIDE 20 MEQ TABLET PO PRN (08:12)
[2019-07-28] MEDS: FUROSEMIDE 40 MG/4 ML VIAL IV SCH (09:12)
[2019-07-28] MEDS: SPIRONOLACTONE 25 MG TABLET PO SCH (09:13)
[2019-07-28] MEDS: PANTOPRAZOLE 40 MG TABLET PO SCH (09:13)
[2019-07-28] MEDS: FINASTERIDE 5 MG TABLET PO SCH (09:13)
[2019-07-28] MEDS: carvediloL 3.125 MG TABLET PO SCH (09:13)
[2019-07-28] MEDS: lisinopriL 2.5 MG TABLET PO SCH (09:13)
[2019-07-28] MEDS: MAGNESIUM OXIDE 400 MG TABLET PO SCH (09:13)
[2019-07-28] MEDS: SKIN HEALING OINT (AQUAPHOR) 50 GM TUBE TOP SCH (09:13)
[2019-07-28] MEDS: APIXABAN 2.5 MG TABLET PO SCH (09:13)
[2019-07-28] MEDS: CLOPIDOGREL 75 MG TABLET PO SCH (09:14)
[2019-07-28 12:12] VITALS: BP 102/72
== END 2019-07-28 12:36 | disposition home health service (06) ==
LOC: EDUNIT# → EDBD → N.ED 19:12 → N.EDINP 19:12 → SUPCPDRO 21:43 → N.4E 22:13
PROVIDERS: ADMIT Internal Medicine Geriatric Medicine; ATTEND Internal Medicine Geriatric Medicine

== ENCOUNTER 2019-08-25 19:35 | Inpatient (IN) ==
[2019-08-25 20:19] LABS: Basophils # 0.1 10*3/uL (0.0-0.2); Basophils % 1.2 % (0.0-0.8); Eosinophils # 0.1 10*3/uL (0.0-0.87); Eosinophils % 2.2 % (0.00-10.9); Hematocrit 43.5 VOL% (42.0-52.0); Hemoglobin 13.3 GM/DL (14.0-18.0); Immature Granulocytes % 0.2 %; Immature Granulocytes Absolute 0.01 #; Lymphocytes # 0.9 10*3/uL (1.4-4.0); Lymphocytes % 22.1 % (21.2-54.2); Mean Corpuscular HGB Conc 30.6 GM/DL (32-36); Mean Corpuscular Volume 90.4 FL (87-102); Monocytes % 16.5 % (1.7-12.7); Neutrophils % 57.8 % (38.7-73.9); Platelet Count 204 T/CUMM (130-400); Red Blood Count 4.81 MC/CUMM (3.8-5.5); Red Cell Distribution Width 15.9 % (9.3-17.3); White Blood Count 4.2 T/CUMM (4-12)
[2019-08-25 20:34] LABS: Albumin 3.6 G/DL (3.4-5.0); Bilirubin,Total 3.1 MG/DL (0.2-1.0); Osmolality,Calculated 282.5 MOS/KG (273-304); Total Protein 9.1 G/DL (6.4-8.3)
[2019-08-25 20:46] LABS: Eosinophils 2 % (0-10); Lymphocytes 24 % (20-55); Platelet Estimate Normal; Poikilocytosis Few; Segmented Neutrophils 62 % (50-85); Target Cells Few; Total Cells Counted 100
[2019-08-25] MEDS ORDERED: LEVOFLOXACIN INJ 500 MG in PREMIX 1 EACH IV STA (20:51)
[2019-08-25] MEDS ORDERED: FUROSEMIDE 40 MG/4 ML VIAL IV STA (20:51)
[2019-08-25 21:03] LABS: INR 1.3; PT Patient Result 14.2 SECS (9.6-12.2)
[2019-08-25] MEDS ORDERED: ACETAMINOPHEN 325 MG TABLET PO PRN (23:24)
[2019-08-25] MEDS ORDERED: ZALEPLON 5 MG CAPSULE PO PRN (23:24)
[2019-08-25] MEDS ORDERED: MORPHINE 4 MG/1 ML VIAL IV PRN (23:24)
[2019-08-25] MEDS ORDERED: ONDANSETRON 4 MG/2 ML VIAL IV PRN (23:24)
[2019-08-25] MEDS ORDERED: hydrALAZINE 20 MG/1 ML VIAL IV PRN (23:24)
[2019-08-25] MEDS ORDERED: DOCUSATE SODIUM 100 MG CAPSULE PO PRN (23:24)
[2019-08-26] MEDS: ALBUTEROL 2.5 MG/3 ML NEB RESP TX SCH ×4 (01:30→19:54)
[2019-08-26 04:53] LABS: Basophils % 0.9 % (0.0-0.8); Eosinophils # 0.1 10*3/uL (0.0-0.87); Eosinophils % 1.5 % (0.00-10.9); Immature Granulocytes % 0.2 %; Immature Granulocytes Absolute 0.01 #; Lymphocytes % 22.2 % (21.2-54.2); Mean Corpuscular HGB Conc 30.8 GM/DL (32-36); Mean Corpuscular Volume 89.4 FL (87-102); Mean Platelet Volume 10.4 FL (9.6-12.0); Monocytes % 19.8 % (1.7-12.7); Neutrophils % 55.4 % (38.7-73.9); Platelet Count 205 T/CUMM (130-400); Red Blood Count 4.36 MC/CUMM (3.8-5.5); Red Cell Distribution Width 15.7 % (9.3-17.3); White Blood Count 4.6 T/CUMM (4-12)
[2019-08-26 05:25] LABS: Lymphocytes 19 % (20-55); Ovalocytes Slight; Platelet Estimate Adequate; Segmented Neutrophils 65 % (50-85); Total Cells Counted 100
[2019-08-26 05:34] LABS: Calcium 9.5 MG/DL (8.5-10.1); Osmolality,Calculated 283.4 MOS/KG (273-304)
[2019-08-26] MEDS: LEVOTHYROXINE 50 MCG TABLET PO SCH (06:35)
[2019-08-26] MEDS ORDERED: FUROSEMIDE 40 MG/4 ML VIAL IV SCH (08:00)
[2019-08-26] MEDS: SKIN HEALING OINT (AQUAPHOR) 50 GM TUBE TOP SCH (09:49)
[2019-08-26] MEDS: carvediloL 6.25 MG TABLET PO SCH ×2 (09:50→16:48)
[2019-08-26] MEDS: APIXABAN 2.5 MG TABLET PO SCH ×2 (09:50→22:57)
[2019-08-26] MEDS: lisinopriL 2.5 MG TABLET PO SCH (09:50)
[2019-08-26] MEDS: PANTOPRAZOLE 40 MG TABLET PO SCH (09:50)
[2019-08-26] MEDS: DIGOXIN 0.25 MG TABLET PO SCH (13:08)
[2019-08-26] MEDS ORDERED: FUROSEMIDE 40 MG/4 ML VIAL IV ONE (17:39)
[2019-08-26] MEDS ORDERED: metOLazone 5 MG TABLET PO ONE (17:39)
[2019-08-26] MEDS: ATORVASTATIN 40 MG TABLET PO SCH (22:57)
[2019-08-26] MEDS: TAMSULOSIN 0.4 MG CAPSULE PO SCH (22:57)
[2019-08-26] MEDS: LEVOFLOXACIN INJ 750 MG in PREMIX 1 EACH IV SCH (23:00)
[2019-08-27] MEDS: ALBUTEROL 2.5 MG/3 ML NEB RESP TX SCH ×4 (01:44→19:49)
[2019-08-27 05:35] LABS: Basophils % 1.1 % (0.0-0.8); Eosinophils # 0.1 10*3/uL (0.0-0.87); Eosinophils % 2.2 % (0.00-10.9); Hematocrit 37.5 VOL% (42.0-52.0); Hemoglobin 11.8 GM/DL (14.0-18.0); Immature Granulocytes % 0.3 %; Immature Granulocytes Absolute 0.01 #; Lymphocytes # 0.7 10*3/uL (1.4-4.0); Lymphocytes % 19.8 % (21.2-54.2); Mean Corpuscular HGB Conc 31.5 GM/DL (32-36); Mean Corpuscular Volume 88.9 FL (87-102); Mean Platelet Volume 10.5 FL (9.6-12.0); Monocytes % 17.7 % (1.7-12.7); Neutrophils % 58.9 % (38.7-73.9); Platelet Count 197 T/CUMM (130-400); Red Blood Count 4.22 MC/CUMM (3.8-5.5); Red Cell Distribution Width 15.7 % (9.3-17.3); White Blood Count 3.7 T/CUMM (4-12)
[2019-08-27 05:58] LABS: Albumin 3.1 G/DL (3.4-5.0); Bilirubin,Total 3.2 MG/DL (0.2-1.0); Osmolality,Calculated 278.7 MOS/KG (273-304); Total Protein 7.9 G/DL (6.4-8.3)
[2019-08-27] MEDS: LEVOTHYROXINE 50 MCG TABLET PO SCH (06:50)
[2019-08-27 06:59] LABS: Eosinophils 5 % (0-10); Hypochromasia 1+; Lymphocytes 15 % (20-55); Platelet Estimate Adequate; Segmented Neutrophils 61 % (50-85); Target Cells Few; Total Cells Counted 100
[2019-08-27] MEDS: PANTOPRAZOLE 40 MG TABLET PO SCH (08:15)
[2019-08-27] MEDS: POTASSIUM CHLORIDE 20 MEQ TABLET PO PRN ×3 (08:15→14:06)
[2019-08-27] MEDS: carvediloL 6.25 MG TABLET PO SCH ×2 (08:15→16:29)
[2019-08-27] MEDS: APIXABAN 2.5 MG TABLET PO SCH ×2 (08:15→20:46)
[2019-08-27] MEDS: FUROSEMIDE 40 MG/4 ML VIAL IV SCH ×2 (08:16→16:37)
[2019-08-27] MEDS: lisinopriL 2.5 MG TABLET PO SCH (08:16)
[2019-08-27] MEDS: SKIN HEALING OINT (AQUAPHOR) 50 GM TUBE TOP SCH (08:22)
[2019-08-27] MEDS: metOLazone 5 MG TABLET PO SCH (11:11)
[2019-08-27] MEDS: DIGOXIN 0.25 MG TABLET PO SCH (14:05)
[2019-08-27] MEDS: TAMSULOSIN 0.4 MG CAPSULE PO SCH (20:46)
[2019-08-27] MEDS: ATORVASTATIN 40 MG TABLET PO SCH (20:46)
[2019-08-27] MEDS: LEVOFLOXACIN INJ 750 MG in PREMIX 1 EACH IV SCH (20:47)
[2019-08-28] MEDS: ALBUTEROL 2.5 MG/3 ML NEB RESP TX SCH ×3 (01:00→14:15)
[2019-08-28] MEDS: LEVOTHYROXINE 50 MCG TABLET PO SCH (05:32)
[2019-08-28 07:11] LABS: Basophils % 0.8 % (0.0-0.8); Eosinophils # 0.1 10*3/uL (0.0-0.87); Eosinophils % 0.9 % (0.00-10.9); Hematocrit 41.3 VOL% (42.0-52.0); Hemoglobin 12.7 GM/DL (14.0-18.0); Immature Granulocytes % 0.4 %; Immature Granulocytes Absolute 0.02 #; Lymphocytes # 0.8 10*3/uL (1.4-4.0); Lymphocytes % 15.7 % (21.2-54.2); Mean Corpuscular HGB Conc 30.8 GM/DL (32-36); Mean Corpuscular Volume 90.2 FL (87-102); Mean Platelet Volume 9.8 FL (9.6-12.0); Monocytes % 22.2 % (1.7-12.7); Platelet Count 197 T/CUMM (130-400); Red Blood Count 4.58 MC/CUMM (3.8-5.5); Red Cell Distribution Width 15.6 % (9.3-17.3); White Blood Count 5.3 T/CUMM (4-12)
[2019-08-28 07:36] LABS: Albumin 2.9 G/DL (3.4-5.0); Osmolality,Calculated 277.8 MOS/KG (273-304); Total Protein 8.2 G/DL (6.4-8.3)
[2019-08-28 07:42] LABS: Eosinophils 1 % (0-10); Hypochromasia 2+; Lymphocytes 17 % (20-55); Platelet Estimate Adequate; Segmented Neutrophils 66 % (50-85); Total Cells Counted 100
[2019-08-28] MEDS ORDERED: carvediloL 6.25 MG TABLET PO SCH (09:08)
[2019-08-28] MEDS ORDERED: LEVOFLOXACIN 500 MG TABLET PO SCH (09:30)
[2019-08-28] MEDS: carvediloL 6.25 MG TABLET PO SCH (10:36)
[2019-08-28] MEDS: FUROSEMIDE 40 MG/4 ML VIAL IV SCH (10:36)
[2019-08-28] MEDS: metOLazone 5 MG TABLET PO SCH (10:36)
[2019-08-28] MEDS: APIXABAN 2.5 MG TABLET PO SCH (10:36)
[2019-08-28] MEDS: PANTOPRAZOLE 40 MG TABLET PO SCH (10:36)
[2019-08-28] MEDS: lisinopriL 2.5 MG TABLET PO SCH (10:37)
[2019-08-28] MEDS: SKIN HEALING OINT (AQUAPHOR) 50 GM TUBE TOP SCH (10:37)
[2019-08-28 12:12] VITALS: BP 110/74
[2019-08-28] MEDS: DIGOXIN 0.25 MG TABLET PO SCH (15:58)
== END 2019-08-28 18:10 | disposition home health service (06) | DRG 291 ==
LOC: EDUNIT# → EDBD → N.ED 19:35 → N.EDINP 23:24 → SUATTDRO 23:24 → N.TELEN 23:53
PROVIDERS: ADMIT Internal Medicine; ATTEND Internal Medicine

== ENCOUNTER 2020-05-24 17:11 | Inpatient (IN) ==
[2020-05-24] MEDS ORDERED: FUROSEMIDE 40 MG/4 ML VIAL IV STA (19:21)
[2020-05-24 19:34] LABS: Basophils % 0.7 % (0.0-0.8); Eosinophils # 0.1 10*3/uL (0.0-0.87); Eosinophils % 2.4 % (0.00-10.9); Hematocrit 40.4 VOL% (42.0-52.0); Hemoglobin 12.6 GM/DL (14.0-18.0); Immature Granulocytes % 0.5 %; Immature Granulocytes Absolute 0.02 #; Lymphocytes # 1.1 10*3/uL (1.4-4.0); Mean Corpuscular HGB Conc 31.2 GM/DL (32-36); Mean Corpuscular Volume 94.8 FL (87-102); Mean Platelet Volume 9.7 FL (9.6-12.0); Monocytes % 17.5 % (1.7-12.7); Neutrophils % 51.9 % (38.7-73.9); Platelet Count 176 T/CUMM (130-400); Red Blood Count 4.26 MC/CUMM (3.8-5.5); Red Cell Distribution Width 16.5 % (9.3-17.3); White Blood Count 4.2 T/CUMM (4-12)
[2020-05-24 20:02] LABS: Alanine Aminotransferase < 6 U/L (16-61); Albumin 2.9 G/DL (3.4-5.0); Alkaline Phosphatase 150 U/L (45-117); Aspartate Amino Transferase 22 U/L (0-37); Blood Urea Nitrogen 19 MG/DL (7-18); Calcium 8.3 MG/DL (8.5-10.1); Estimated Glom Filtration Rate 118 ML/MIN; Glucose 89 MG/DL (74-106); Osmolality,Calculated 283.1 MOS/KG (273-304); Total Protein 7.8 G/DL (6.4-8.3)
[2020-05-24 20:04] LABS: Eosinophils 4 % (0-10); Lymphocytes 23 % (20-55); Platelet Estimate Adequate; Segmented Neutrophils 58 % (50-85); Smudge Cells Few; Total Cells Counted 100
[2020-05-24 20:05] LABS: Anisocytosis Slight; Microcytosis Slight
[2020-05-24] MEDS ORDERED: DEXTROSE 50% 25 GM/50 ML VIAL IV PRN (23:19)
[2020-05-24] MEDS ORDERED: GLUCAGON 1 MG VIAL IM PRN (23:19)
[2020-05-25] MEDS ORDERED: DEXTROSE 50% 25 GM/50 ML SYRINGE IV PRN (00:17)
[2020-05-25] MEDS: ALBUTEROL 2.5 MG/3 ML NEB RESP TX SCH ×4 (00:48→19:29)
[2020-05-25 04:12] LABS: Basophils % 0.9 % (0.0-0.8); Eosinophils # 0.1 10*3/uL (0.0-0.87); Eosinophils % 2.8 % (0.00-10.9); Hemoglobin 12.4 GM/DL (14.0-18.0); Lymphocytes # 0.9 10*3/uL (1.4-4.0); Lymphocytes % 27.2 % (21.2-54.2); Mean Corpuscular HGB Conc 31.8 GM/DL (32-36); Mean Corpuscular Volume 92.4 FL (87-102); Mean Platelet Volume 9.6 FL (9.6-12.0); Neutrophils % 50.1 % (38.7-73.9); Platelet Count 172 T/CUMM (130-400); Red Blood Count 4.22 MC/CUMM (3.8-5.5); Red Cell Distribution Width 16.3 % (9.3-17.3); White Blood Count 3.3 T/CUMM (4-12)
[2020-05-25 04:35] LABS: Thyroid Stimulating Hormone 2.43 uIU/ml (0.358-3.74)
[2020-05-25 04:39] LABS: Albumin 2.9 G/DL (3.4-5.0); Bilirubin,Total 2.3 MG/DL (0.2-1.0); Calcium 8.4 MG/DL (8.5-10.1); Osmolality,Calculated 281.3 MOS/KG (273-304); Total Protein 7.9 G/DL (6.4-8.3)
[2020-05-25] MEDS ORDERED: FUROSEMIDE 40 MG/4 ML VIAL IV SCH (08:00)
[2020-05-25 08:09] LABS: Band Neutrophils 2 % (0-10); Eosinophils 1 % (0-10); Lymphocytes 25 % (20-55); Nucleated Red Blood Cells 1 (0-5); Platelet Estimate Normal; Segmented Neutrophils 55 % (50-85); Total Cells Counted 100
[2020-05-25] MEDS: MAGNESIUM OXIDE 400 MG TABLET PO SCH ×2 (08:55→21:28)
[2020-05-25] MEDS: carvediloL 3.125 MG TABLET PO SCH ×2 (08:55→16:20)
[2020-05-25] MEDS: lisinopriL 2.5 MG TABLET PO SCH (08:55)
[2020-05-25] MEDS: FINASTERIDE 5 MG TABLET PO SCH (08:55)
[2020-05-25] MEDS: APIXABAN 2.5 MG TABLET PO SCH ×2 (08:55→21:29)
[2020-05-25] MEDS: CLOPIDOGREL 75 MG TABLET PO SCH (08:55)
[2020-05-25] MEDS: FUROSEMIDE 40 MG/4 ML VIAL IV SCH ×2 (08:56→16:20)
[2020-05-25] MEDS: FAMOTIDINE 20 MG TABLET PO SCH (21:28)
[2020-05-25] MEDS: TAMSULOSIN 0.4 MG CAPSULE PO SCH (21:28)
[2020-05-25] MEDS: ATORVASTATIN 20 MG TABLET PO SCH (21:29)
[2020-05-26] MEDS: ALBUTEROL 2.5 MG/3 ML NEB RESP TX SCH ×4 (00:58→19:22)
[2020-05-26 05:14] LABS: Basophils % 0.6 % (0.0-0.8); Eosinophils # 0.1 10*3/uL (0.0-0.87); Hematocrit 37.2 VOL% (42.0-52.0); Hemoglobin 11.9 GM/DL (14.0-18.0); Immature Granulocytes % 0.3 %; Immature Granulocytes Absolute 0.01 #; Lymphocytes # 0.9 10*3/uL (1.4-4.0); Lymphocytes % 24.5 % (21.2-54.2); Mean Corpuscular Volume 91.6 FL (87-102); Mean Platelet Volume 10.2 FL (9.6-12.0); Monocytes % 15.8 % (1.7-12.7); Neutrophils % 56.8 % (38.7-73.9); Platelet Count 169 T/CUMM (130-400); Red Blood Count 4.06 MC/CUMM (3.8-5.5); Red Cell Distribution Width 16.2 % (9.3-17.3); White Blood Count 3.6 T/CUMM (4-12)
[2020-05-26 05:38] LABS: Calcium 8.1 MG/DL (8.5-10.1); Osmolality,Calculated 280.3 MOS/KG (273-304)
[2020-05-26] MEDS: LEVOTHYROXINE 50 MCG TABLET PO SCH (06:19)
[2020-05-26 07:11] LABS: Eosinophils 1 % (0-10); Hypochromasia 2+; Lymphocytes 12 % (20-55); Platelet Estimate Adequate; Polychromasia Slight; Segmented Neutrophils 77 % (50-85); Total Cells Counted 100
[2020-05-26] MEDS: lisinopriL 2.5 MG TABLET PO SCH (08:08)
[2020-05-26] MEDS: CLOPIDOGREL 75 MG TABLET PO SCH (08:08)
[2020-05-26] MEDS: MAGNESIUM OXIDE 400 MG TABLET PO SCH ×2 (08:08→21:34)
[2020-05-26] MEDS: SPIRONOLACTONE 25 MG TABLET PO SCH (08:08)
[2020-05-26] MEDS: carvediloL 3.125 MG TABLET PO SCH ×2 (08:08→17:02)
[2020-05-26] MEDS: APIXABAN 2.5 MG TABLET PO SCH ×2 (08:08→21:34)
[2020-05-26] MEDS: ASCORBIC ACID 500 MG TABLET PO SCH (08:08)
[2020-05-26] MEDS: DIGOXIN 0.25 MG TABLET PO SCH (08:09)
[2020-05-26] MEDS: FUROSEMIDE 40 MG/4 ML VIAL IV SCH ×2 (08:09→17:02)
[2020-05-26] MEDS: CHOLECALCIFEROL 1,000 UNIT TABLET PO SCH (08:09)
[2020-05-26] MEDS: FAMOTIDINE 20 MG TABLET PO SCH (08:09)
[2020-05-26] MEDS: FINASTERIDE 5 MG TABLET PO SCH (08:09)
[2020-05-26] MEDS: metOLazone 5 MG TABLET PO SCH (12:24)
[2020-05-26] MEDS: PANTOPRAZOLE 40 MG TABLET PO SCH (12:24)
[2020-05-26] MEDS: ATORVASTATIN 20 MG TABLET PO SCH (21:34)
[2020-05-26] MEDS: TAMSULOSIN 0.4 MG CAPSULE PO SCH (21:34)
[2020-05-26] MEDS ORDERED: SIMETHICONE CHEW 125 MG TABLET PO PRN (22:41)
[2020-05-27] MEDS: ALBUTEROL 2.5 MG/3 ML NEB RESP TX SCH ×4 (00:08→18:49)
[2020-05-27 05:18] LABS: Eosinophils # 0.1 10*3/uL (0.0-0.87); Eosinophils % 2.2 % (0.00-10.9); Hematocrit 37.9 VOL% (42.0-52.0); Hemoglobin 12.4 GM/DL (14.0-18.0); Immature Granulocytes % 0.2 %; Immature Granulocytes Absolute 0.01 #; Lymphocytes # 1.1 10*3/uL (1.4-4.0); Lymphocytes % 27.4 % (21.2-54.2); Mean Corpuscular HGB Conc 32.7 GM/DL (32-36); Mean Corpuscular Volume 89.6 FL (87-102); Mean Platelet Volume 9.9 FL (9.6-12.0); Monocytes % 16.3 % (1.7-12.7); Neutrophils % 52.9 % (38.7-73.9); Platelet Count 184 T/CUMM (130-400); Red Blood Count 4.23 MC/CUMM (3.8-5.5); Red Cell Distribution Width 15.9 % (9.3-17.3); White Blood Count 4.1 T/CUMM (4-12)
[2020-05-27 05:40] LABS: Albumin 2.5 G/DL (3.4-5.0); Bilirubin,Total 2.6 MG/DL (0.2-1.0); Calcium 8.7 MG/DL (8.5-10.1); Osmolality,Calculated 273.7 MOS/KG (273-304); Total Protein 7.3 G/DL (6.4-8.3)
[2020-05-27 05:41] LABS: Eosinophils 3 % (0-10); Hypochromasia 1+; Lymphocytes 25 % (20-55); Microcytosis 1+; Platelet Estimate Adequate; Segmented Neutrophils 56 % (50-85); Total Cells Counted 100
[2020-05-27] MEDS: LEVOTHYROXINE 50 MCG TABLET PO SCH (06:08)
[2020-05-27] MEDS: DIGOXIN 0.25 MG TABLET PO SCH (08:27)
[2020-05-27] MEDS: FINASTERIDE 5 MG TABLET PO SCH (08:28)
[2020-05-27] MEDS: CLOPIDOGREL 75 MG TABLET PO SCH (08:28)
[2020-05-27] MEDS: carvediloL 3.125 MG TABLET PO SCH ×2 (08:28→16:00)
[2020-05-27] MEDS: APIXABAN 2.5 MG TABLET PO SCH ×2 (08:28→22:55)
[2020-05-27] MEDS: lisinopriL 2.5 MG TABLET PO SCH (08:28)
[2020-05-27] MEDS: PANTOPRAZOLE 40 MG TABLET PO SCH (08:28)
[2020-05-27] MEDS: FUROSEMIDE 40 MG/4 ML VIAL IV SCH (08:28)
[2020-05-27] MEDS: ASCORBIC ACID 500 MG TABLET PO SCH (08:28)
[2020-05-27] MEDS: MAGNESIUM OXIDE 400 MG TABLET PO SCH ×2 (08:28→22:54)
[2020-05-27] MEDS: SPIRONOLACTONE 25 MG TABLET PO SCH (08:28)
[2020-05-27] MEDS: metOLazone 5 MG TABLET PO SCH (08:28)
[2020-05-27] MEDS: CHOLECALCIFEROL 1,000 UNIT TABLET PO SCH (08:28)
[2020-05-27] MEDS: diphenhydrAMINE CAP 25 MG CAPSULE PO PRN ×2 (16:00→22:54)
[2020-05-27] MEDS: TAMSULOSIN 0.4 MG CAPSULE PO SCH (22:54)
[2020-05-27] MEDS: FUROSEMIDE 80 MG TABLET PO SCH (22:55)
[2020-05-27] MEDS: ATORVASTATIN 20 MG TABLET PO SCH (22:55)
[2020-05-28] MEDS: ALBUTEROL 2.5 MG/3 ML NEB RESP TX SCH ×2 (01:20→07:15)
[2020-05-28] MEDS ORDERED: LACTULOSE 20 GM/30 ML UDCUP PO ONE (03:54)
[2020-05-28] MEDS: LEVOTHYROXINE 50 MCG TABLET PO SCH (05:50)
[2020-05-28 08:24] LABS: Basophils % 0.1 % (0.0-0.8); Hematocrit 43.6 VOL% (42.0-52.0); Hemoglobin 14.6 GM/DL (14.0-18.0); Immature Granulocytes % 0.7 %; Immature Granulocytes Absolute 0.11 #; Lymphocytes # 0.3 10*3/uL (1.4-4.0); Lymphocytes % 1.8 % (21.2-54.2); Mean Corpuscular HGB Conc 33.5 GM/DL (32-36); Mean Platelet Volume 10.5 FL (9.6-12.0); Monocytes % 8.5 % (1.7-12.7); Neutrophils % 88.9 % (38.7-73.9); Platelet Count 186 T/CUMM (130-400); Red Cell Distribution Width 15.7 % (9.3-17.3)
[2020-05-28 08:25] LABS: White Blood Count 15.7 T/CUMM (4-12)
[2020-05-28] MEDS: CHOLECALCIFEROL 1,000 UNIT TABLET PO SCH (08:28)
[2020-05-28] MEDS: DIGOXIN 0.25 MG TABLET PO SCH (08:28)
[2020-05-28] MEDS: ASCORBIC ACID 500 MG TABLET PO SCH (08:28)
[2020-05-28] MEDS: FINASTERIDE 5 MG TABLET PO SCH (08:28)
[2020-05-28] MEDS: metOLazone 5 MG TABLET PO SCH (08:29)
[2020-05-28] MEDS: lisinopriL 2.5 MG TABLET PO SCH (08:29)
[2020-05-28] MEDS: PANTOPRAZOLE 40 MG TABLET PO SCH (08:29)
[2020-05-28] MEDS: SPIRONOLACTONE 25 MG TABLET PO SCH (08:29)
[2020-05-28] MEDS: CLOPIDOGREL 75 MG TABLET PO SCH (08:29)
[2020-05-28] MEDS: FUROSEMIDE 80 MG TABLET PO SCH (08:29)
[2020-05-28] MEDS: APIXABAN 2.5 MG TABLET PO SCH (08:29)
[2020-05-28] MEDS: MAGNESIUM OXIDE 400 MG TABLET PO SCH (08:29)
[2020-05-28] MEDS: carvediloL 3.125 MG TABLET PO SCH (08:29)
[2020-05-28 08:40] LABS: Band Neutrophils 4 % (0-10); Platelet Estimate Adequate; Segmented Neutrophils 86 % (50-85); Total Cells Counted 100
[2020-05-28 08:50] LABS: Osmolality,Calculated 272.1 MOS/KG (273-304)
[2020-05-28 12:29] VITALS: BP 95/53
== END 2020-05-28 15:01 | disposition hospice, home (50) | DRG 292 ==
LOC: EDBD → EDUNIT# → N.ED 17:11 → N.EDINP 17:11 → N.TELES 05-25 02:49
PROVIDERS: ADMIT Internal Medicine; ATTEND Internal Medicine

== ENCOUNTER 2022-01-24 23:38 | Inpatient (IN) ==
[2022-01-25] MEDS ORDERED: DILTIAZEM 25 MG/5 ML VIAL IV ONE (00:07)
[2022-01-25] MEDS ORDERED: SODIUM CHLORIDE 0.9% 500 ML IV STA (00:12)
[2022-01-25] MEDS ORDERED: DILTIAZEM 25 MG/5 ML VIAL IV STA (00:12)
[2022-01-25] MEDS ORDERED: ASPIRIN EC 325 MG TABLET PO STA (00:57)
[2022-01-25 01:05] LABS: Basophils % 0.5 % (0.0-0.8); Eosinophils % 0.5 % (0.00-10.9); Hematocrit 48.8 VOL% (42.0-52.0); Hemoglobin 15.6 GM/DL (14.0-18.0); Immature Granulocytes % 0.4 %; Immature Granulocytes Absolute 0.03 #; Lymphocytes # 1.6 10*3/uL (1.4-4.0); Lymphocytes % 21.7 % (21.2-54.2); Mean Corpuscular Volume 94.4 FL (87-102); Mean Platelet Volume 10.3 FL (9.6-12.0); Monocytes % 13.6 % (1.7-12.7); Neutrophils % 63.3 % (38.7-73.9); Platelet Count 211 T/CUMM (130-400); Red Blood Count 5.17 MC/CUMM (3.8-5.5); Red Cell Distribution Width 15.6 % (9.3-17.3); White Blood Count 7.4 T/CUMM (4-12)
[2022-01-25 01:22] LABS: Albumin 2.9 G/DL (3.4-5.0); Bilirubin,Total 4.5 MG/DL (0.20-1.00); Calcium 8.8 MG/DL (8.5-10.1); Osmolality,Calculated 287.3 MOS/KG (273-304); Potassium 4.6 MMOL/L (3.5-5.1); Total Protein 7.3 G/DL (6.4-8.2)
[2022-01-25] MEDS ORDERED: DILTIAZEM INJ 100 MG in SODIUM CHLORIDE 0.9% 100 ML IV SCH (01:30)
[2022-01-25] MEDS ORDERED: DIGOXIN 0.5 MG/2 ML AMP IV STA (01:52)
[2022-01-25] MEDS ORDERED: GLUCAGON 1 MG VIAL IM PRN (03:23)
[2022-01-25] MEDS ORDERED: DEXTROSE 10% 250 ML BAG IV PRN (03:23)
[2022-01-25] MEDS ORDERED: ONDANSETRON 4 MG/2 ML VIAL IV PRN (03:23)
[2022-01-25 06:09] LABS: Basophils % 0.6 % (0.0-0.8); Eosinophils % 0.6 % (0.00-10.9); Hematocrit 44.8 VOL% (42.0-52.0); Hemoglobin 14.1 GM/DL (14.0-18.0); Immature Granulocytes % 0.6 %; Immature Granulocytes Absolute 0.04 #; Lymphocytes # 0.8 10*3/uL (1.4-4.0); Lymphocytes % 11.7 % (21.2-54.2); Mean Corpuscular HGB Conc 31.5 GM/DL (32-36); Mean Corpuscular Volume 95.5 FL (87-102); Mean Platelet Volume 10.2 FL (9.6-12.0); Monocytes # 1.2 10*3/uL (0.11-0.8); Monocytes % 17.5 % (1.7-12.7); Platelet Count 184 T/CUMM (130-400); Red Blood Count 4.69 MC/CUMM (3.8-5.5); Red Cell Distribution Width 15.7 % (9.3-17.3); White Blood Count 6.9 T/CUMM (4-12)
[2022-01-25 07:23] LABS: Albumin 2.3 G/DL (3.4-5.0); Bilirubin,Total 4.1 MG/DL (0.20-1.00); Osmolality,Calculated 289.1 MOS/KG (273-304); Potassium 4.2 MMOL/L (3.5-5.1); Risk Ratio 2.68; Thyroid Stimulating Hormone 1.91 uIU/ml (0.358-3.74); Total Protein 6.1 G/DL (6.4-8.2); VLDL Cholesterol 11.4 MG/DL
[2022-01-25 07:35] LABS: Band Neutrophils 1 % (0-10); Lymphocytes 12 % (20-55); Macrocytosis Slight; Target Cells Slight; Total Cells Counted 100
[2022-01-25] MEDS ORDERED: DIGOXIN 0.25 MG TABLET PO ONE (08:16)
[2022-01-25] MEDS: PANTOPRAZOLE 40 MG TABLET PO SCH (08:52)
[2022-01-25] MEDS: carvediloL 3.125 MG TABLET PO SCH ×2 (08:53→21:22)
[2022-01-25] MEDS: CLOPIDOGREL 75 MG TABLET PO SCH (08:53)
[2022-01-25] MEDS ORDERED: FUROSEMIDE 40 MG/4 ML VIAL IV SCH ×2 (09:00→16:00)
[2022-01-25] MEDS ORDERED: APIXABAN 2.5 MG TABLET PO SCH (09:00)
[2022-01-25] MEDS: SPIRONOLACTONE 25 MG TABLET PO SCH (11:10)
[2022-01-25] MEDS ORDERED: MAGNESIUM SULF RIDER 2 GM/50 ML PREMIX IV ONE (11:20)
[2022-01-25] MEDS: ASCORBIC ACID 500 MG TABLET PO SCH (21:23)
[2022-01-25] MEDS: APIXABAN 5 MG TABLET PO SCH (21:23)
[2022-01-25] MEDS: ATORVASTATIN 20 MG TABLET PO SCH (21:23)
[2022-01-26 06:03] LABS: Basophils % 0.6 % (0.0-0.8); Eosinophils % 0.8 % (0.00-10.9); Hematocrit 42.8 VOL% (42.0-52.0); Hemoglobin 13.6 GM/DL (14.0-18.0); Immature Granulocytes % 0.4 %; Immature Granulocytes Absolute 0.02 #; Lymphocytes # 0.8 10*3/uL (1.4-4.0); Lymphocytes % 15.9 % (21.2-54.2); Mean Corpuscular HGB Conc 31.8 GM/DL (32-36); Mean Corpuscular Volume 95.3 FL (87-102); Monocytes # 0.8 10*3/uL (0.11-0.8); Monocytes % 16.1 % (1.7-12.7); Neutrophils % 66.2 % (38.7-73.9); Platelet Count 176 T/CUMM (130-400); Red Blood Count 4.49 MC/CUMM (3.8-5.5); Red Cell Distribution Width 15.6 % (9.3-17.3); White Blood Count 4.9 T/CUMM (4-12)
[2022-01-26 06:31] LABS: Calcium 8.8 MG/DL (8.5-10.1); Osmolality,Calculated 287.5 MOS/KG (273-304); Potassium 4.1 MMOL/L (3.5-5.1)
[2022-01-26 06:34] LABS: Band Neutrophils 1 % (0-10); Eosinophils 2 % (0-10); Lymphocytes 17 % (20-55); Macrocytosis Slight; Total Cells Counted 100
[2022-01-26 06:35] LABS: Polychromasia Slight
[2022-01-26] MEDS ORDERED: AMIODARONE INJ 150 MG in DEXTROSE 5% 100 ML IV ONE (07:27)
[2022-01-26] MEDS ORDERED: AMIODARONE INJ 450 MG in DEXTROSE 5% 241 ML IV SCH (07:30)
[2022-01-26] MEDS ORDERED: FUROSEMIDE 40 MG/4 ML VIAL IV SCH (09:00)
[2022-01-26] MEDS: CLOPIDOGREL 75 MG TABLET PO SCH (09:41)
[2022-01-26] MEDS: SPIRONOLACTONE 25 MG TABLET PO SCH (09:41)
[2022-01-26] MEDS: ASCORBIC ACID 500 MG TABLET PO SCH ×2 (09:41→21:27)
[2022-01-26] MEDS: APIXABAN 5 MG TABLET PO SCH ×2 (09:41→21:27)
[2022-01-26] MEDS: PANTOPRAZOLE 40 MG TABLET PO SCH (09:42)
[2022-01-26] MEDS: carvediloL 3.125 MG TABLET PO SCH (09:42)
[2022-01-26] MEDS ORDERED: DIGOXIN 0.125 MG TABLET PO SCH (13:00)
[2022-01-26] MEDS: DIGOXIN 0.25 MG TABLET PO SCH (15:54)
[2022-01-26] MEDS: AMIODARONE INJ 450 MG in DEXTROSE 5% 241 ML IV SCH (17:25)
[2022-01-26] MEDS ORDERED: SODIUM CHLORIDE 0.9% 250 ML IV ONE (17:43)
[2022-01-26] MEDS ORDERED: SODIUM CHLORIDE 0.9% 500 ML IV ONE (18:42)
[2022-01-26] MEDS ORDERED: ALBUMIN 25% 50 GM/200 ML VIAL IV ONE (21:00)
[2022-01-26] MEDS: ATORVASTATIN 20 MG TABLET PO SCH (21:27)
[2022-01-26] MEDS: ACETAMINOPHEN 325 MG TABLET PO PRN (21:28)
[2022-01-26] MEDS: MORPHINE 2 MG/1 ML SYRINGE IV PRN (23:52)
[2022-01-27 01:24] LABS: Calcium 8.9 MG/DL (8.5-10.1); Osmolality,Calculated 278.1 MOS/KG (273-304); Potassium 4.9 MMOL/L (3.5-5.1)
[2022-01-27 01:25] LABS: Basophils % 0.5 % (0.0-0.8); Eosinophils % 0.3 % (0.00-10.9); Hematocrit 46.4 VOL% (42.0-52.0); Hemoglobin 14.6 GM/DL (14.0-18.0); Immature Granulocytes % 0.5 %; Immature Granulocytes Absolute 0.03 #; Lymphocytes % 16.1 % (21.2-54.2); Mean Corpuscular HGB Conc 31.5 GM/DL (32-36); Mean Corpuscular Volume 95.3 FL (87-102); Mean Platelet Volume 9.8 FL (9.6-12.0); Monocytes % 16.9 % (1.7-12.7); NRBC # 0.02 10*3/uL; Neutrophils % 65.7 % (38.7-73.9); Platelet Count 197 T/CUMM (130-400); Red Blood Count 4.87 MC/CUMM (3.8-5.5); Red Cell Distribution Width 15.5 % (9.3-17.3)
[2022-01-27 02:03] LABS: Lymphocytes 16 % (20-55); Platelet Estimate Adequate; Total Cells Counted 100
[2022-01-27] MEDS: AMIODARONE INJ 450 MG in DEXTROSE 5% 241 ML IV SCH (04:43)
[2022-01-27] MEDS: MORPHINE 2 MG/1 ML SYRINGE IV PRN (04:45)
[2022-01-27] MEDS: PANTOPRAZOLE 40 MG TABLET PO SCH (09:10)
[2022-01-27] MEDS: AMIODARONE 200 MG TABLET PO SCH ×2 (09:10→21:01)
[2022-01-27] MEDS: APIXABAN 5 MG TABLET PO SCH ×2 (09:10→21:01)
[2022-01-27] MEDS: carvediloL 3.125 MG TABLET PO SCH ×2 (09:10→21:01)
[2022-01-27] MEDS: ASCORBIC ACID 500 MG TABLET PO SCH ×2 (09:10→21:01)
[2022-01-27] MEDS: CLOPIDOGREL 75 MG TABLET PO SCH (09:10)
[2022-01-27] MEDS ORDERED: DICYCLOMINE 20 MG TABLET PO PRN (10:21)
[2022-01-27] MEDS: DIGOXIN 0.25 MG TABLET PO SCH (12:48)
[2022-01-27] MEDS: ATORVASTATIN 20 MG TABLET PO SCH (21:01)
[2022-01-28 03:17] LABS: Basophils % 0.6 % (0.0-0.8); Eosinophils # 0.1 10*3/uL (0.0-0.87); Eosinophils % 1.4 % (0.00-10.9); Hematocrit 42.6 VOL% (42.0-52.0); Hemoglobin 13.6 GM/DL (14.0-18.0); Immature Granulocytes % 0.6 %; Immature Granulocytes Absolute 0.03 #; Lymphocytes # 0.8 10*3/uL (1.4-4.0); Lymphocytes % 16.1 % (21.2-54.2); Mean Corpuscular HGB Conc 31.9 GM/DL (32-36); Mean Corpuscular Volume 94.7 FL (87-102); Mean Platelet Volume 10.1 FL (9.6-12.0); Monocytes % 19.5 % (1.7-12.7); Neutrophils % 61.8 % (38.7-73.9); Platelet Count 183 T/CUMM (130-400); Red Cell Distribution Width 15.5 % (9.3-17.3)
[2022-01-28 03:37] LABS: Eosinophils 1 % (0-10); Lymphocytes 11 % (20-55); Macrocytosis Slight; Platelet Estimate Adequate; Polychromasia Slight; Total Cells Counted 100
[2022-01-28 03:40] LABS: Calcium 8.3 MG/DL (8.5-10.1); Osmolality,Calculated 288.4 MOS/KG (273-304); Potassium 4.7 MMOL/L (3.5-5.1)
[2022-01-28] MEDS: ASCORBIC ACID 500 MG TABLET PO SCH ×2 (08:26→22:22)
[2022-01-28] MEDS: CLOPIDOGREL 75 MG TABLET PO SCH (08:26)
[2022-01-28] MEDS: carvediloL 3.125 MG TABLET PO SCH ×2 (08:26→22:22)
[2022-01-28] MEDS: PANTOPRAZOLE 40 MG TABLET PO SCH (08:26)
[2022-01-28] MEDS: APIXABAN 5 MG TABLET PO SCH ×2 (08:26→22:21)
[2022-01-28] MEDS: AMIODARONE 200 MG TABLET PO SCH ×2 (08:26→22:22)
[2022-01-28] MEDS ORDERED: FUROSEMIDE 40 MG/4 ML VIAL IV ONE ×2 (09:38→16:00)
[2022-01-28] MEDS: SPIRONOLACTONE 25 MG TABLET PO SCH (10:20)
[2022-01-28] MEDS: DIGOXIN 0.25 MG TABLET PO SCH (13:55)
[2022-01-28] MEDS: ATORVASTATIN 20 MG TABLET PO SCH (22:21)
[2022-01-29 04:13] LABS: Basophils % 0.3 % (0.0-0.8); Eosinophils % 0.7 % (0.00-10.9); Hematocrit 41.7 VOL% (42.0-52.0); Hemoglobin 12.9 GM/DL (14.0-18.0); Immature Granulocytes % 0.5 %; Immature Granulocytes Absolute 0.03 #; Lymphocytes # 0.8 10*3/uL (1.4-4.0); Lymphocytes % 12.6 % (21.2-54.2); Mean Corpuscular HGB Conc 30.9 GM/DL (32-36); Mean Corpuscular Volume 95.2 FL (87-102); Mean Platelet Volume 10.1 FL (9.6-12.0); Monocytes # 1.2 10*3/uL (0.11-0.8); Monocytes % 19.9 % (1.7-12.7); Platelet Count 176 T/CUMM (130-400); Red Blood Count 4.38 MC/CUMM (3.8-5.5); Red Cell Distribution Width 15.3 % (9.3-17.3); White Blood Count 5.9 T/CUMM (4-12)
[2022-01-29 04:34] LABS: Albumin 2.7 G/DL (3.4-5.0); Bilirubin,Total 2.2 MG/DL (0.20-1.00); Calcium 8.1 MG/DL (8.5-10.1); Calcium 8.7 MG/DL (8.5-10.1); Osmolality,Calculated 286.5 MOS/KG (273-304); Osmolality,Calculated 287.4 MOS/KG (273-304); Potassium 4.2 MMOL/L (3.5-5.1)
[2022-01-29] MEDS: APIXABAN 5 MG TABLET PO SCH ×2 (09:33→22:07)
[2022-01-29] MEDS: ASCORBIC ACID 500 MG TABLET PO SCH ×2 (09:33→22:06)
[2022-01-29] MEDS: AMIODARONE 200 MG TABLET PO SCH ×2 (09:34→22:07)
[2022-01-29] MEDS: carvediloL 3.125 MG TABLET PO SCH ×2 (09:34→22:06)
[2022-01-29] MEDS: PANTOPRAZOLE 40 MG TABLET PO SCH (09:34)
[2022-01-29] MEDS: CLOPIDOGREL 75 MG TABLET PO SCH (09:34)
[2022-01-29] MEDS: SPIRONOLACTONE 25 MG TABLET PO SCH (09:34)
[2022-01-29] MEDS ORDERED: FUROSEMIDE 40 MG TABLET PO SCH (10:30)
[2022-01-29] MEDS: FUROSEMIDE 40 MG/4 ML VIAL IV SCH (12:48)
[2022-01-29] MEDS: DIGOXIN 0.25 MG TABLET PO SCH (12:53)
[2022-01-29] MEDS ORDERED: BISACODYL 10 MG SUPP RECTAL ONE (13:47)
[2022-01-29] MEDS: ATORVASTATIN 20 MG TABLET PO SCH (22:06)
[2022-01-29] MEDS: DOCUSATE SODIUM 100 MG CAPSULE PO SCH (22:07)
[2022-01-30 04:33] LABS: Basophils % 0.3 % (0.0-0.8); Eosinophils # 0.1 10*3/uL (0.0-0.87); Eosinophils % 1.3 % (0.00-10.9); Hematocrit 43.5 VOL% (42.0-52.0); Hemoglobin 13.7 GM/DL (14.0-18.0); Immature Granulocytes % 0.5 %; Immature Granulocytes Absolute 0.03 #; Lymphocytes # 0.8 10*3/uL (1.4-4.0); Lymphocytes % 13.6 % (21.2-54.2); Mean Corpuscular HGB Conc 31.5 GM/DL (32-36); Mean Corpuscular Volume 95.6 FL (87-102); Mean Platelet Volume 10.3 FL (9.6-12.0); Monocytes % 16.5 % (1.7-12.7); Neutrophils % 67.8 % (38.7-73.9); Platelet Count 168 T/CUMM (130-400); Red Blood Count 4.55 MC/CUMM (3.8-5.5); Red Cell Distribution Width 15.4 % (9.3-17.3); White Blood Count 6.2 T/CUMM (4-12)
[2022-01-30 04:55] LABS: Eosinophils 2 % (0-10); Lymphocytes 14 % (20-55); Platelet Estimate Adequate; Total Cells Counted 100
[2022-01-30 05:07] LABS: Calcium 8.5 MG/DL (8.5-10.1); Osmolality,Calculated 279.8 MOS/KG (273-304); Potassium 4.2 MMOL/L (3.5-5.1)
[2022-01-30] MEDS ORDERED: LACTULOSE 20 GM/30 ML UDCUP PO ONE (08:05)
[2022-01-30] MEDS: AMIODARONE 200 MG TABLET PO SCH ×2 (10:35→21:02)
[2022-01-30] MEDS: carvediloL 3.125 MG TABLET PO SCH ×2 (10:35→21:02)
[2022-01-30] MEDS: PANTOPRAZOLE 40 MG TABLET PO SCH (10:35)
[2022-01-30] MEDS: DOCUSATE SODIUM 100 MG CAPSULE PO SCH ×2 (10:36→21:02)
[2022-01-30] MEDS: SPIRONOLACTONE 25 MG TABLET PO SCH (10:36)
[2022-01-30] MEDS: APIXABAN 5 MG TABLET PO SCH ×2 (10:36→21:02)
[2022-01-30] MEDS: CLOPIDOGREL 75 MG TABLET PO SCH (10:36)
[2022-01-30] MEDS: ASCORBIC ACID 500 MG TABLET PO SCH ×2 (10:36→21:02)
[2022-01-30] MEDS: FUROSEMIDE 40 MG/4 ML VIAL IV SCH (10:37)
[2022-01-30] MEDS: DIGOXIN 0.25 MG TABLET PO SCH (14:10)
[2022-01-30] MEDS: ATORVASTATIN 20 MG TABLET PO SCH (21:02)
[2022-01-31 05:53] LABS: Basophils % 0.4 % (0.0-0.8); Eosinophils # 0.1 10*3/uL (0.0-0.87); Eosinophils % 1.6 % (0.00-10.9); Hematocrit 44.3 VOL% (42.0-52.0); Hemoglobin 13.9 GM/DL (14.0-18.0); Immature Granulocytes % 0.4 %; Immature Granulocytes Absolute 0.02 #; Lymphocytes # 0.9 10*3/uL (1.4-4.0); Lymphocytes % 15.2 % (21.2-54.2); Mean Corpuscular HGB Conc 31.4 GM/DL (32-36); Mean Corpuscular Volume 96.3 FL (87-102); Mean Platelet Volume 9.9 FL (9.6-12.0); Monocytes # 0.8 10*3/uL (0.11-0.8); Monocytes % 14.8 % (1.7-12.7); Neutrophils % 67.6 % (38.7-73.9); Platelet Count 185 T/CUMM (130-400); Red Cell Distribution Width 15.2 % (9.3-17.3); White Blood Count 5.7 T/CUMM (4-12)
[2022-01-31 06:18] LABS: Calcium 8.7 MG/DL (8.5-10.1)
[2022-01-31] MEDS: AMIODARONE 200 MG TABLET PO SCH ×2 (09:10→22:13)
[2022-01-31] MEDS: carvediloL 3.125 MG TABLET PO SCH ×2 (09:10→22:12)
[2022-01-31] MEDS: DOCUSATE SODIUM 100 MG CAPSULE PO SCH ×2 (10:26→22:13)
[2022-01-31] MEDS: APIXABAN 5 MG TABLET PO SCH ×2 (10:27→22:12)
[2022-01-31] MEDS: ACETAMINOPHEN 325 MG TABLET PO PRN (10:27)
[2022-01-31] MEDS: CLOPIDOGREL 75 MG TABLET PO SCH (10:27)
[2022-01-31] MEDS: PANTOPRAZOLE 40 MG TABLET PO SCH (10:27)
[2022-01-31] MEDS: ASCORBIC ACID 500 MG TABLET PO SCH ×2 (10:27→22:11)
[2022-01-31] MEDS: SPIRONOLACTONE 25 MG TABLET PO SCH (13:09)
[2022-01-31] MEDS: FUROSEMIDE 40 MG/4 ML VIAL IV SCH (13:09)
[2022-01-31] MEDS: DIGOXIN 0.25 MG TABLET PO SCH (16:18)
[2022-01-31] MEDS: ATORVASTATIN 20 MG TABLET PO SCH (22:13)
[2022-02-01 04:51] LABS: Basophils % 0.4 % (0.0-0.8); Eosinophils # 0.1 10*3/uL (0.0-0.87); Eosinophils % 1.3 % (0.00-10.9); Hematocrit 47.5 VOL% (42.0-52.0); Hemoglobin 14.7 GM/DL (14.0-18.0); Immature Granulocytes % 0.3 %; Immature Granulocytes Absolute 0.02 #; Lymphocytes # 0.9 10*3/uL (1.4-4.0); Lymphocytes % 12.2 % (21.2-54.2); Mean Corpuscular HGB Conc 30.9 GM/DL (32-36); Mean Corpuscular Volume 95.8 FL (87-102); Mean Platelet Volume 9.4 FL (9.6-12.0); Monocytes % 14.2 % (1.7-12.7); Neutrophils % 71.6 % (38.7-73.9); Platelet Count 179 T/CUMM (130-400); Red Blood Count 4.96 MC/CUMM (3.8-5.5)
[2022-02-01 05:15] LABS: Calcium 8.4 MG/DL (8.5-10.1); Osmolality,Calculated 280.7 MOS/KG (273-304); Potassium 4.2 MMOL/L (3.5-5.1)
[2022-02-01] MEDS: FUROSEMIDE 40 MG/4 ML VIAL IV SCH (09:19)
[2022-02-01] MEDS: carvediloL 3.125 MG TABLET PO SCH ×2 (09:20→21:31)
[2022-02-01] MEDS: ASCORBIC ACID 500 MG TABLET PO SCH ×2 (09:20→21:31)
[2022-02-01] MEDS: SPIRONOLACTONE 25 MG TABLET PO SCH (09:20)
[2022-02-01] MEDS: DOCUSATE SODIUM 100 MG CAPSULE PO SCH ×2 (09:21→21:31)
[2022-02-01] MEDS: PANTOPRAZOLE 40 MG TABLET PO SCH (09:21)
[2022-02-01] MEDS: APIXABAN 5 MG TABLET PO SCH ×2 (09:21→21:31)
[2022-02-01] MEDS: AMIODARONE 200 MG TABLET PO SCH ×2 (09:21→21:31)
[2022-02-01] MEDS: CLOPIDOGREL 75 MG TABLET PO SCH (09:22)
[2022-02-01] MEDS ORDERED: LACTULOSE 20 GM/30 ML UDCUP PO ONE (11:00)
[2022-02-01] MEDS: DIGOXIN 0.25 MG TABLET PO SCH (13:17)
[2022-02-01] MEDS: ATORVASTATIN 20 MG TABLET PO SCH (21:31)
[2022-02-02 04:48] LABS: Basophils % 0.3 % (0.0-0.8); Eosinophils # 0.1 10*3/uL (0.0-0.87); Eosinophils % 1.2 % (0.00-10.9); Hematocrit 48.5 VOL% (42.0-52.0); Hemoglobin 15.3 GM/DL (14.0-18.0); Immature Granulocytes % 0.5 %; Immature Granulocytes Absolute 0.04 #; Lymphocytes # 0.9 10*3/uL (1.4-4.0); Lymphocytes % 10.3 % (21.2-54.2); Mean Corpuscular HGB Conc 31.5 GM/DL (32-36); Mean Corpuscular Volume 95.8 FL (87-102); Mean Platelet Volume 9.7 FL (9.6-12.0); Monocytes # 1.3 10*3/uL (0.11-0.8); Monocytes % 15.4 % (1.7-12.7); Neutrophils % 72.3 % (38.7-73.9); Platelet Count 200 T/CUMM (130-400); Red Blood Count 5.06 MC/CUMM (3.8-5.5); Red Cell Distribution Width 14.8 % (9.3-17.3); White Blood Count 8.7 T/CUMM (4-12)
[2022-02-02 05:26] LABS: Calcium 8.4 MG/DL (8.5-10.1); Osmolality,Calculated 278.7 MOS/KG (273-304); Potassium 4.1 MMOL/L (3.5-5.1)
[2022-02-02] MEDS ORDERED: propofoL 200 MG/20 ML VIAL IV ONE (06:39)
[2022-02-02] MEDS ORDERED: LIDOCAINE 1% 5 ML VIAL ONE (06:40)
[2022-02-02] MEDS ORDERED: ETOMIDATE 40 MG/20 ML VIAL IV ONE (06:40)
[2022-02-02] MEDS: APIXABAN 5 MG TABLET PO SCH ×2 (10:56→22:18)
[2022-02-02] MEDS: ASCORBIC ACID 500 MG TABLET PO SCH ×2 (10:56→22:18)
[2022-02-02] MEDS: AMIODARONE 200 MG TABLET PO SCH ×2 (10:56→22:18)
[2022-02-02] MEDS: PANTOPRAZOLE 40 MG TABLET PO SCH (10:56)
[2022-02-02] MEDS: CLOPIDOGREL 75 MG TABLET PO SCH (10:56)
[2022-02-02] MEDS: DOCUSATE SODIUM 100 MG CAPSULE PO SCH ×2 (10:57→22:18)
[2022-02-02] MEDS: SPIRONOLACTONE 25 MG TABLET PO SCH (11:09)
[2022-02-02] MEDS: carvediloL 3.125 MG TABLET PO SCH ×2 (11:11→22:18)
[2022-02-02] MEDS: FUROSEMIDE 40 MG/4 ML VIAL IV SCH (11:12)
[2022-02-02] MEDS: DIGOXIN 0.25 MG TABLET PO SCH (16:05)
[2022-02-02] MEDS: ATORVASTATIN 20 MG TABLET PO SCH (22:18)
[2022-02-03 05:00] LABS: Basophils % 0.4 % (0.0-0.8); Eosinophils # 0.1 10*3/uL (0.0-0.87); Eosinophils % 1.5 % (0.00-10.9); Hematocrit 51.9 VOL% (42.0-52.0); Hemoglobin 16.3 GM/DL (14.0-18.0); Immature Granulocytes % 0.3 %; Immature Granulocytes Absolute 0.02 #; Lymphocytes % 14.3 % (21.2-54.2); Mean Corpuscular HGB Conc 31.4 GM/DL (32-36); Mean Corpuscular Volume 95.4 FL (87-102); Mean Platelet Volume 9.6 FL (9.6-12.0); Monocytes # 0.9 10*3/uL (0.11-0.8); Monocytes % 13.7 % (1.7-12.7); Neutrophils % 69.8 % (38.7-73.9); Platelet Count 203 T/CUMM (130-400); Red Blood Count 5.44 MC/CUMM (3.8-5.5); Red Cell Distribution Width 14.7 % (9.3-17.3); White Blood Count 6.7 T/CUMM (4-12)
[2022-02-03 05:18] LABS: Osmolality,Calculated 274.1 MOS/KG (273-304); Potassium 4.3 MMOL/L (3.5-5.1)
[2022-02-03] MEDS: SPIRONOLACTONE 25 MG TABLET PO SCH (09:37)
[2022-02-03] MEDS: ASCORBIC ACID 500 MG TABLET PO SCH (09:37)
[2022-02-03] MEDS: FUROSEMIDE 40 MG/4 ML VIAL IV SCH (09:37)
[2022-02-03] MEDS: AMIODARONE 200 MG TABLET PO SCH (09:37)
[2022-02-03] MEDS: APIXABAN 5 MG TABLET PO SCH (09:37)
[2022-02-03] MEDS: DOCUSATE SODIUM 100 MG CAPSULE PO SCH (09:37)
[2022-02-03] MEDS: CLOPIDOGREL 75 MG TABLET PO SCH (09:37)
[2022-02-03] MEDS: PANTOPRAZOLE 40 MG TABLET PO SCH (09:37)
[2022-02-03] MEDS: carvediloL 3.125 MG TABLET PO SCH (09:37)
[2022-02-03] MEDS: DIGOXIN 0.25 MG TABLET PO SCH (14:41)
[2022-02-03 16:18] VITALS: BP 91/61
== END 2022-02-03 18:00 | disposition home health service (06) | DRG 291 ==
LOC: EDUNIT# → EDBD → N.ED 23:38 → SUATTDRO 01-25 01:57 → N.TELES 01-25 01:57 → N.CC 01-26 19:03 → N.TELEN 01-28 12:09
PROVIDERS: ADMIT Internal Medicine Geriatric Medicine; ATTEND Hospitalist